=== PATIENT | female | born 1940 | race Caucasian/White ===

== ENCOUNTER → 2024-06-14 10:14 | Outpatient (REF) | payer OTHER, SELFPAY ==
[2024-06-14 12:25] LABS: % Basophils 0.6 % (0-2); % Eosinophils 1.3 % (0-6); % Immature Granulocytes 0.3 % (0-0.5); % Lymphocytes 13.6 % (20.5-51.1); % Neutrophils 79.2 % (42.2-75.2); Absolute Eosinophils 0.1 10^3/uL (0-0.7); Absolute Lymphocytes 0.9 10^3/uL (1.2-3.4); Absolute Monocytes 0.3 10^3/uL (0.1-0.6); Absolute Neutrophils 5.4 10^3/uL (1.4-6.5); Hematocrit 38.4 % (37.0-47.0); Hemoglobin 12.4 g/dL (12.0-16.0); Mean Corp Hgb Conc. 32.3 g/dL (33.0-37.0); Mean Corpuscular Hgb 28.6 pg (27.0-31.0); Mean Corpuscular Volume 88.5 fL (81.0-99.0); Mean Platelet Volume 9.7 fL (7.4-10.4); Nucleated Red Blood Cells % 0 %; Platelet Count 297 10^3/uL (130-400); Red Blood Cell Count 4.34 10^6/uL (4.20-5.40); Red Cell Dist. Width 12.9 % (11.5-14.5); White Blood Cell Count 6.8 10^3/uL (4.8-10.8)
[2024-06-14 12:26] LABS: Urine Albumin Trace (Neg - Trace); Urine Bilirubin Negative (Negative); Urine Character Clear (Clear); Urine Color Yellow; Urine Glucose Negative (Negative); Urine Ketone Negative (Negative); Urine Leukocyte Trace (Negative); Urine Nitrite Negative (Negative); Urine Occult Blood 1+ (Negative); Urine Specific Gravity 1.015 (<1.030); Urine Urobilinogen Negative (Neg - 1+)
[2024-06-14 12:35] LABS: Urine Bacteria Few (Negative); Urine Squamous Cell 0-2 /LPF (Few); Urine White Cell 0-2 /HPF (0-5)
[2024-06-14 12:37] LABS: ALT (SGPT) 13 U/L (0-35); AST (SGOT) 20 U/L (14-36); Albumin 4.2 g/dl (3.5-5.0); Alkaline Phosphatase 83 U/L (38-126); Blood Urea Nitrogen 18 mg/dl (7-17); Carbon Dioxide 26 mmol/L (22-30); Chloride 104 mmol/L (98-107); Glucose 92 mg/dl (70-99); HDL Cholesterol 69 mg/dl; LDL Cholesterol, Calculated 73 mg/dl; Potassium 4.5 mmol/L (3.5-5.1); Sodium 142 mmol/L (135-145); Total Bilirubin 0.4 mg/dl (0.2-1.3); Total Cholesterol 167 mg/dl (50-199); Total Protein 6.5 g/dl (6.3-8.2); Triglyceride 125 mg/dl (10-149); Very Low Density Lipoprotein 25 mg/dl (0-30); eGFR > 60.00
[2024-06-14 12:53] LABS: Free T4 1.32 ng/dl (0.78-2.19); Vitamin D, 25-OH*** 81.7 ng/mL (30-80)
[2024-06-14 13:06] LABS: TSH 2.02 uIU/ml (0.47-4.68)
== END ==
LOC: HWLAB 10:14
PROVIDERS: ATTENDING PHYSICIAN Internal Medicine Geriatric Medicine
DX: Z87.19 Personal history of other diseases of the digestive system (principal); E55.9 Vitamin D deficiency, unspecified; E03.9 Hypothyroidism, unspecified; E78.5 Hyperlipidemia, unspecified
CPT/HCPCS: 36415; 80053; 80061; 81003; 81015; 82306; 84439; 84443; 85025

== ENCOUNTER → 2024-06-21 10:59 | Outpatient (REF) | payer OTHER, SELFPAY | LOC: HWRAD 10:59 | PROVIDERS: ATTENDING PHYSICIAN Nurse Practitioner Family; FAMILY PHYSICIAN Internal Medicine Geriatric Medicine | DX: M94.0 Chondrocostal junction syndrome [Tietze] (principal) | CPT/HCPCS: 71101 ==

== ENCOUNTER 2024-06-23 11:29 | Emergency (ER) | payer OTHER, SELFPAY ==
[2024-06-23 11:31] VITALS: BP 160/91
--- NOTE | 2024-06-23 13:02 | ED.GENMED ---
Addendum entered and electronically signed by MARY Irby 06/26/24 08:32:
Urine culture positive for E. coli. Spoke with patient at home will send prescription to pharmacy as discussed. She does request that this prescription be sent to [facility] and should bottom [facility] as she is away this weekend. Will send
Keflex 500 mg twice daily for the next 1 week. She denies any f/c/n/v/abd pain. Dr Huddleston her pcp is following patient for her previous ED visit back pain.
Original Note:
History of Present Illness
General
Chief Complaint: Chest Problem
Source: patient and family
Time Seen by Provider: 06/23/24 12:17
History of Present Illness
History of Present Illness:
This is an 84-year-old female who presents with about 10 to 14 days of pain in the right flank area. She states it starts in her right flank and radiates down the right abdomen. The patient does admit it is worse with movement. She apparently had
outpatient x-rays performed. She does not recall any specific injury but does admit that there was a day when her dog chased after a squirrel and sort of pulled her. She denies dysuria. No hematuria. No vomiting. No nausea. No lightheadedness
or dizziness. She is being followed by dermatology for more diffuse rash but denies any local rash to the pain area
Past History
Past History
ED Past Medical History: Hypercholesterolemia, Hypothyroidism and Other (Diverticulosis/diverticulitis, melanoma)
ED Past Surgical History: Other (hemorrhoidectomy)
Social History
Tobacco: Non-smoker
Alcohol: Occasional
Drug: None
Personal:
Living: with family
Phy Exam
Physical Exam
Physical Exam:
CONSTITUTIONAL Patient alert and oriented to person, place and time. Well-appearing. Vital signs reviewed.
HEAD atraumatic, normocephalic.
EYES eyelids normal to inspection, Pupils equally round and reactive to light, Extraocular muscles intact, Conjunctiva normal, Sclera normal.
NECK normal range of motion, Trachea midline, no jugular venous distention.
RESPIRATORY CHEST No respiratory distress noted, Chest expansion equal, Bilateral breath sounds clear.
CARDIOVASCULAR regular rate and rhythm, Heart sounds normal.
ABDOMEN abdomen nontender, Bowel sounds normal. No distention.
BACK normal inspection, no obvious deformities, no crepitus, no CVA tenderness, mild tenderness along the lateral rib margins at ribs 10-12.
UPPER EXTREMITY range of motion normal, Motor strength normal, no cyanosis, no edema.
LOWER EXTREMITY range of motion normal, Motor strength normal, no cyanosis, no edema.
NEURO Speech normal, No focal motor deficits, Gregory coma scale 15, Memory normal, Cranial Nerves intact to screening exam.
SKIN skin warm, dry, and normal in color.
Course
Orders/Labs/Results
Orders:
Orders
06/23/24 12:53
CT Abd/pel Without Iv Or Oral Urgent
Comment:
Reason For Exam: R flank pain
06/23/24 13:09
Complete Blood Count/With Diff Urgent
Comprehensive Metabolic Panel Urgent
Urinalysis Reflex To Culture Urgent
Date Specimen was Collected: 06/23/24
Time Specimen was Collected: 13:02
Urine Microscopic Reflex Cult Urgent
Urine Culture Urgent
FORREST Source: U
Specimen Description:
Date Specimen was Collected: 06/23/24
Time Specimen was Collected: 13:02
Abnormal Lab Results
06/23/24
13:09
Absolute Neuts (auto) 8.3 H 10^3/uL
(1.4-6.5)
Neutrophils % 80.9 H %
(42.2-75.2)
Lymphocytes % 12.2 L %
(20.5-51.1)
BUN 35 H mg/dl
(7-17)
Creatinine 1.6 H mg/dL
(0.6-1.0)
Calcium 10.6 H mg/dl
(8.4-10.2)
Ur Occult Blood Reflex Trace A
(Negative)
Leukocyte Esterase Rfl Trace A
(Negative)
Urine RBC 7-10 A /HPF
(0-2)
Urine Bacteria (Reflex) Many A
(Negative)
06/23/24 13:09
06/23/24 13:09
Vital Signs
Initial and Last Documented VS:
Initial Vital Signs
Temp Pulse Resp BP Pulse Ox
98.7 F 91 18 160/91 98
06/23/24 11:31 06/23/24 11:31 06/23/24 11:31 06/23/24 11:31 06/23/24 11:31
Last Documented Vital Signs
Temp Pulse Resp BP Pulse Ox
98.7 F 91 18 160/91 98
06/23/24 11:31 06/23/24 11:31 06/23/24 11:31 06/23/24 11:31 06/23/24 11:31
MDM/Problems Addressed
MDM/Problems Addressed:
Flank pain, possible multiple myeloma, possible small bowel diverticulum
*Radiology
Radiology exam reviewed: radiology read reviewed
*Pulse Oximetry
Patient hypoxic: no
*Critical Care Note
Total Time (30-74mins, 75-104mins- exclusive of procedures): Not Applicable
Data Reviewed
Review of Other/Old Records Reveals: Radiology Studies (Radiology report reviewed from June 21, no rib fractures)
Source: patient and family
Patient Management
Discussion with other providers: PCP (Case discussed with Dr. Kirby)
Escalation/DeEscalation of care consider admission/obs:
84-year-old female presents with persistent flank pain. She appears well and the pain is clearly worse with moving. CT noted for some lytic lesions that are concerning for either metastatic disease or multiple myeloma. Case discussed with the
patient's PCP who will follow closely as an outpatient. The patient appears otherwise well. Creatinine noted. PCP aware of results
ED Attending Note
-
Portions of this chart may have been created with voice recognition software.� Occasional wrong word or��sound alike� substitutions may have occurred due to the inherent limitations of voice recognition software.
Discharge Plan
Departure
Patient Disposition: Home (Routine Discharge)
Date of Disposition: 06/23/24
Time of Disposition: 15:03
Patient with high blood pressure during this ER visit?: Yes
Discharge Problem:
Acute right flank pain
Instructions: BLOOD PRESSURE
Prescriptions:
No Action
simvastatin 10 MG tablet
10 mg PO QPM
levothyroxine 100 MCG tablet
100 mcg PO DAILY
cholecalciferol (vitamin D3) [Vitamin D3] 1,000 UNIT capsule
2,000 unit PO DAILY
conjugated estrogens [Premarin] 0.3 MG tablet
0.3 mg PO DAILY
pantoprazole 40 MG tablet,delayed release (DR/EC)
40 mg PO DAILY Qty: 30 0RF
aspirin 81 MG tablet,delayed release (DR/EC)
81 mg PO QPM Qty: 0 0RF
Rx Instructions:
restart after talking to pcp
Referrals:
Lawrence Huddleston MD [Family Provider] -
Activity Restrictions/Additional Instructions:
Flank pain
Dr. Huddleston will be calling you to arrange further follow-up. Return immediately for difficulty breathing, worsening symptoms, weakness or any other concerns. Dr. Huddleston will arrange further workup regarding your test results.
Interventions
Interventions:
*Risk Screen - Suicide Last Done: 06/23/24 13:07
*General Assessment Last Done: 06/23/24 13:07
*Neglect/Abuse Screening Last Done: 06/23/24 13:07
*ED COVID-19 Vaccine History Last Done: 06/23/24 13:07
ED- Cardiac Assessment Last Done: 06/23/24 13:07
ED- Pulmonary Assessment Last Done: 06/23/24 13:07
Discharge Date and Time
Print Language: PORTUGUESE
[2024-06-23 13:22] LABS: % Basophils 0.7 % (0-2); % Eosinophils 0.9 % (0-6); % Immature Granulocytes 0.2 % (0-0.5); % Lymphocytes 12.2 % (20.5-51.1); % Monocytes 5.1 % (1.7-9.3); % Neutrophils 80.9 % (42.2-75.2); Absolute Basophils 0.1 10^3/uL (0-0.2); Absolute Eosinophils 0.1 10^3/uL (0-0.7); Absolute Lymphocytes 1.3 10^3/uL (1.2-3.4); Absolute Monocytes 0.5 10^3/uL (0.1-0.6); Absolute Neutrophils 8.3 10^3/uL (1.4-6.5); Hematocrit 39.2 % (37.0-47.0); Mean Corp Hgb Conc. 33.2 g/dL (33.0-37.0); Mean Corpuscular Hgb 28.8 pg (27.0-31.0); Mean Corpuscular Volume 86.7 fL (81.0-99.0); Nucleated Red Blood Cells % 0 %; Platelet Count 308 10^3/uL (130-400); Red Blood Cell Count 4.52 10^6/uL (4.20-5.40); Red Cell Dist. Width 13.1 % (11.5-14.5); White Blood Cell Count 10.3 10^3/uL (4.8-10.8)
[2024-06-23 13:45] LABS: ALT (SGPT) 21 U/L (0-35); AST (SGOT) 28 U/L (14-36); Albumin 4.7 g/dl (3.5-5.0); Alkaline Phosphatase 75 U/L (38-126); Blood Urea Nitrogen 35 mg/dl (7-17); Calcium 10.6 mg/dl (8.4-10.2); Carbon Dioxide 26 mmol/L (22-30); Chloride 103 mmol/L (98-107); Glucose 93 mg/dl (70-99); Potassium 4.5 mmol/L (3.5-5.1); Sodium 141 mmol/L (135-145); Total Bilirubin 0.8 mg/dl (0.2-1.3); Total Protein 7.1 g/dl (6.3-8.2); eGFR 31.61
[2024-06-23 14:09] LABS: Urine Albumin Trace (Neg - Trace); Urine Bilirubin Negative (Negative); Urine Character Slightly Cloudy (Clear); Urine Color Yellow; Urine Glucose Negative (Negative); Urine Ketone Negative (Negative); Urine Leukocyte Trace (Negative); Urine Nitrite Negative (Negative); Urine Occult Blood Trace (Negative); Urine Specific Gravity 1.015 (<1.030); Urine Urobilinogen Negative (Neg - 1+)
[2024-06-23 14:39] LABS: Urine Mucus Moderate
[2024-06-23 14:40] LABS: Urine Amorphous Seen
[2024-06-23 14:42] LABS: Urine Bacteria Many (Negative); Urine White Cell 0-2 /HPF (0-5)
== END 2024-06-23 15:33 | disposition home or self-care (01) ==
LOC: EMR 11:29
PROVIDERS: EMERGENCY PHYSICIAN Emergency Medicine; FAMILY PHYSICIAN Internal Medicine Geriatric Medicine
DX: R10.9 Unspecified abdominal pain (principal); R21 Rash and other nonspecific skin eruption; R03.0 Elevated blood-pressure reading, without diagnosis of hypertension; R93.5 Abnormal findings on diagnostic imaging of other abdominal regions, including retroperitoneum; E03.9 Hypothyroidism, unspecified; E78.00 Pure hypercholesterolemia, unspecified; K57.50 Diverticulosis of both small and large intestine without perforation or abscess without bleeding; Z79.82 Long term (current) use of aspirin; Z85.820 Personal history of malignant melanoma of skin
CPT/HCPCS: 99284; 74176; 80053; 81003; 81015; 85025; 87077; 87086; 87186

== ENCOUNTER → 2024-06-30 12:35 | Outpatient (REF) | payer OTHER, SELFPAY ==
[2024-06-30 13:39] LABS: % Basophils 0.4 % (0-2); % Eosinophils 1.4 % (0-6); % Immature Granulocytes 0.4 % (0-0.5); % Lymphocytes 7.3 % (20.5-51.1); % Monocytes 4.4 % (1.7-9.3); % Neutrophils 86.1 % (42.2-75.2); Absolute Eosinophils 0.1 10^3/uL (0-0.7); Absolute Lymphocytes 0.6 10^3/uL (1.2-3.4); Absolute Monocytes 0.4 10^3/uL (0.1-0.6); Hematocrit 40.5 % (37.0-47.0); Hemoglobin 13.1 g/dL (12.0-16.0); Mean Corp Hgb Conc. 32.3 g/dL (33.0-37.0); Mean Corpuscular Hgb 28.4 pg (27.0-31.0); Mean Corpuscular Volume 87.9 fL (81.0-99.0); Mean Platelet Volume 9.5 fL (7.4-10.4); Nucleated Red Blood Cells % 0 %; Platelet Count 406 10^3/uL (130-400); Red Blood Cell Count 4.61 10^6/uL (4.20-5.40); Red Cell Dist. Width 13.3 % (11.5-14.5); White Blood Cell Count 8.1 10^3/uL (4.8-10.8)
[2024-06-30 14:09] LABS: Erythrocyte Sed Rate 25 mm/hour (0-20)
[2024-06-30 14:17] LABS: ALT (SGPT) 20 U/L (0-35); AST (SGOT) 24 U/L (14-36); Albumin 4.8 g/dl (3.5-5.0); Alkaline Phosphatase 84 U/L (38-126); Blood Urea Nitrogen 50 mg/dl (7-17); Carbon Dioxide 26 mmol/L (22-30); Chloride 101 mmol/L (98-107); Glucose 103 mg/dl (70-99); Potassium 5.6 mmol/L (3.5-5.1); Sodium 143 mmol/L (135-145); Total Bilirubin 0.5 mg/dl (0.2-1.3); Total Protein 7.2 g/dl (6.3-8.2); eGFR 11.56
[2024-07-01 04:26] LABS: IgG 628 mg/dl (700-1600); IgM 41 mg/dl (40-230)
[2024-07-01 04:50] LABS: IgA < 50 mg/dl (70-400)
== END ==
LOC: REG 12:35
PROVIDERS: ATTENDING PHYSICIAN Internal Medicine Geriatric Medicine
DX: E78.2 Mixed hyperlipidemia (principal); E55.9 Vitamin D deficiency, unspecified; E03.8 Other specified hypothyroidism; M94.0 Chondrocostal junction syndrome [Tietze]; R10.32 Left lower quadrant pain; Z13.31 Encounter for screening for depression; R07.9 Chest pain, unspecified; R07.89 Other chest pain; Z13.89 Encounter for screening for other disorder; E03.9 Hypothyroidism, unspecified; C79.51 Secondary malignant neoplasm of bone
CPT/HCPCS: 36415; 80053; 82784; 83521; 84155; 84156; 84165; 85025; 85652; 86335

== ENCOUNTER 2024-07-01 16:37 | Inpatient (IN) | payer OTHER, SELFPAY ==
[2024-07-01] VITALS (13 sets, daily range): BP systolic 127–163; BP diastolic 67–127; BMI 18.6; BMI 19.3
[2024-07-01 10:48] LABS: % Basophils 0.3 % (0-2); % Eosinophils 1.3 % (0-6); % Immature Granulocytes 0.3 % (0-0.5); % Lymphocytes 6.1 % (20.5-51.1); % Monocytes 5.7 % (1.7-9.3); % Neutrophils 86.3 % (42.2-75.2); Absolute Eosinophils 0.1 10^3/uL (0-0.7); Absolute Lymphocytes 0.6 10^3/uL (1.2-3.4); Absolute Monocytes 0.5 10^3/uL (0.1-0.6); Absolute Neutrophils 7.7 10^3/uL (1.4-6.5); Hematocrit 37.7 % (37.0-47.0); Hemoglobin 12.4 g/dL (12.0-16.0); Mean Corp Hgb Conc. 32.9 g/dL (33.0-37.0); Mean Corpuscular Hgb 29.6 pg (27.0-31.0); Nucleated Red Blood Cells % 0 %; Platelet Count 349 10^3/uL (130-400); Red Blood Cell Count 4.19 10^6/uL (4.20-5.40); Red Cell Dist. Width 13.2 % (11.5-14.5)
[2024-07-01 11:02] LABS: ALT (SGPT) 19 U/L (0-35); AST (SGOT) 21 U/L (14-36); Albumin 4.6 g/dl (3.5-5.0); Alkaline Phosphatase 75 U/L (38-126); Blood Urea Nitrogen 48 mg/dl (7-17); Calcium 10.8 mg/dl (8.4-10.2); Carbon Dioxide 25 mmol/L (22-30); Chloride 103 mmol/L (98-107); Glucose 103 mg/dl (70-99); Potassium 5.1 mmol/L (3.5-5.1); Sodium 144 mmol/L (135-145); Total Bilirubin 0.5 mg/dl (0.2-1.3); Total Protein 6.8 g/dl (6.3-8.2); eGFR 12.79
[2024-07-01] MEDS: NSS 500 IV (12:17)
[2024-07-01] MEDS: MORPHINE SULFATE 4 MG IV (12:18)
--- NOTE | 2024-07-01 12:41 | ED.GENMED ---
History of Present Illness
General
Chief Complaint: Abnormal Lab Value
Source: patient and family
Exam Limitations: none
Time Seen by Provider: 07/01/24 11:29
Nursing documentation reviewed up to this point in time: agreed with
History of Present Illness
History of Present Illness:
84-year-old female with past medical history of recently diagnosed multiple myeloma previous history of hyperlipidemia hypothyroidism presenting to the department today with concerns of abnormal labs obtained yesterday. She claims that she has had
ongoing which she has had over the past few weeks to the upper abdomen rating to the back. She is pending assessment by oncology for multiple myeloma treatment.
Past History
Past History
ED Past Medical History: Hypercholesterolemia, Hypothyroidism and Other (Diverticulosis/diverticulitis, melanoma)
ED Past Surgical History: Other (hemorrhoidectomy)
Social History
Tobacco: Non-smoker
Alcohol: Occasional
Drug: None
Personal:
Living: with family
Review of Systems
Review of Systems
Allergies reviewed?: Yes
All Other Systems: ROS reviewed and negative except as documented in HPI and ROS
Phy Exam
Physical Exam
Physical Exam:
GENERAL: Alert , in no apparent distress
EYE: pupils equal and reactive
NECK: Supple, no significant adenopathy.
ENT: o/p clr, mmm.
CARDIAC: Regular rate and rhythm .
LUNGS: Clear breath sounds bilaterally, no acute respiratory distress, no wheezes/rales/rhonchi
ABDOMEN: Discomfort throughout the upper abdomen in the right upper quadrant as well as right flank area otherwise soft benign abdomen
NEUROLOGICAL: Alert and oriented, no focal neuro deficits
SKIN: Warm and dry, skin intact.
MUSCULOSKELETAL: No edema, well perfused.
PSYCH: Normal and appropriate interaction.
Course
Orders/Labs/Results
Orders:
Orders
07/01/24 10:35
CMP [Comprehensive Metabolic Panel] Urgent
Complete Blood Count/With Diff Urgent
07/01/24 12:12
Morphine Sulfate 4 mg IV NOW STA
07/01/24 12:15
0.9% Sodium Chloride 500 ml [Nss] 500 ml IV BOLUS
07/01/24 14:42
Urinalysis Urgent
0.9% Sodium Chloride 1000 ml [Nss] 1,000 ml IV BOLUS
07/01/24 14:46
Bladder Scan As Directed
Follow Bladder Retention/Intermittent Cath Algorithm?: Yes
PRN if no void in __ hours: 6
Frequency: Per Retention Algorithm
If Bladder Scan Result >: 400
then:: Straight cath
Straight Cath As Directed
Frequency: Per Retention Algorithm
Additional Instructions: straight cath as needed per acute urinary retention algorithm for 24 hrs
Additional Instructions: for bladder scan greater than 400 mL
07/01/24 14:47
Intact PTH Includes Calcium Routine
PTH Related Peptide LC-MS/MS [S] Routine
Phosphorus Routine
07/01/24 14:48
Add On- LAB Routine
Tests Added?: 1,25 Dihydroxyvitamin D
07/01/24 15:00
0.9% Sodium Chloride 1000 ml [Nss] 1,000 ml IV 150 mls/hr
Abnormal Lab Results
07/01/24
10:35
RBC 4.19 L 10^6/uL
(4.20-5.40)
MCHC 32.9 L g/dL
(33.0-37.0)
Absolute Neuts (auto) 7.7 H 10^3/uL
(1.4-6.5)
Absolute Lymphs (auto) 0.6 L 10^3/uL
(1.2-3.4)
Neutrophils % 86.3 H %
(42.2-75.2)
Lymphocytes % 6.1 L %
(20.5-51.1)
BUN 48 H mg/dl
(7-17)
Creatinine 3.4 H mg/dL
(0.6-1.0)
Glucose 103 H mg/dl
(70-99)
Calcium 10.8 H mg/dl
(8.4-10.2)
07/01/24 10:35
07/01/24 10:35
Vital Signs
Initial and Last Documented VS:
Initial Vital Signs
Temp Pulse Resp BP Pulse Ox
98.2 F 82 16 161/93 97
07/01/24 10:23 07/01/24 10:23 07/01/24 10:23 07/01/24 10:23 07/01/24 10:23
Last Documented Vital Signs
Temp Pulse Resp BP Pulse Ox
98.2 F 84 16 143/70 96
07/01/24 10:23 07/01/24 14:30 07/01/24 10:23 07/01/24 14:00 07/01/24 14:30
MDM/Problems Addressed
MDM/Problems Addressed:
84-year-old female presenting to the emergency department with concerns of abnormal labs as an outpatient. Found to have increased kidney function test. Has more than doubled over the past 2 weeks. Level here BUN of 48 and creatinine of 3.4.
Case was then discussed with oncology as well as nephrology. Patient otherwise given fluids here also additional pain medications. Stable throughout ER stay admitted for ongoing treatment.
*Critical Care Note
Total Time (30-74mins, 75-104mins- exclusive of procedures): Not Applicable
ED Attending Note
-
Portions of this chart may have been created with voice recognition software.� Occasional wrong word or��sound alike� substitutions may have occurred due to the inherent limitations of voice recognition software.
Discharge Plan
Departure
Patient Disposition: Admit
Date of Disposition: 07/01/24
Time of Disposition: 15:18
Admit to: Med/Surg
Admit to doctor: Sergio
Presentation/result/management discussed w/ accepting MD/DO: Hospitalist
Patient with high blood pressure during this ER visit?: No
Condition: Good
Covid-19: Not Applicable
Discharge Problem:
KATHRYN (acute kidney injury)
Prescriptions:
No Action
cholecalciferol (vitamin D3) [Vitamin D3] 1,000 UNIT capsule
2,000 unit PO DAILY
cephalexin 500 mg capsule
500 mg PO BID 7 Days Qty: 14 0RF
polyethylene glycol 3350 [Miralax] 17 gram Powder In Packet
17 g PO DAILYPRN PRN (Reason: CONSTIPATION)
tramadol 50 mg Tablet
50 mg PO BIDPRN PRN (Reason: moderate pains)
acetaminophen [Tylenol Extra Strength] 500 mg Tablet
500 mg PO QIDPRN PRN (Reason: mild pain)
oxycodone-acetaminophen 5-325 mg Tablet
1 tab PO Q6HPRN PRN (Reason: severe pain)
levothyroxine [Synthroid] 88 mcg Tablet
88 mcg PO DAILY
simvastatin [Zocor] 20 mg Tablet
20 mg PO HS
ondansetron [Zofran ODT] 4 mg Tablet,Disintegrating
4 mg PO Q6HPRN PRN (Reason: NAUSEA)
turmeric 400 mg Capsule
400 mg PO DAILY
Referrals:
Lawrence Huddleston MD [Family Provider] -
Interventions
Interventions:
*Risk Screen - Suicide Last Done: 07/01/24 10:23
*General Assessment Last Done: 07/01/24 11:39
*Neglect/Abuse Screening Last Done: 07/01/24 10:23
ED- Fall Risk Assessment Last Done: 07/01/24 11:39
*ED COVID-19 Vaccine History Last Done: 07/01/24 11:39
Discharge Date and Time
Print Language: BULGARIAN
--- NOTE | 2024-07-01 14:23 | W.CON.NEPH ---
Consultation
-
Date/Time Consultation Requested: 07/01/24 1200
Date/Time Consultation Performed: 07/01/24 1430
Requesting Provider: Dr. Hill
Performing Provider: Dr Herbert
Reason for Consultation: KATHRYN
Medical History
-
Chief Complaint: Right Abdominal Pain
History of Present Illness:
This is a 84-year-old female who has very limited medical history. She has hypothyroid on Synthroid therapy, hyperlipidemia on statin therapy, both of these have been stable. At the beginning of the month she had developed right-sided abdominal
pain which she associated with a sudden jerking motion while she was walking her dog. She saw her primary care physician on 06/18/2024 and was started on naproxen 500 mg 2 times daily. She says that she was taking naproxen 5 mg 3 times daily with
Tylenol 1000 mg 3 times daily as well. This unfortunately did not control her pain very well. She had a chest ray x-ray which was otherwise unremarkable. She went to the emergency room on 23 June given the severe pain. She had a CT scan which
showed significant lytic lesions in the femurs ribs and spine. Blood work at that time showed mildly elevated calcium at 10.6 with mildly elevated creatinine 1.6. She called her primary care physician on 06/25/2024 and was given tramadol for her
pain. She was told to discontinue naproxen subsequently. She had follow-up with her primary on 06/30/2024 and was given OxyContin given continued worsening pain. She also had blood work to evaluate for multiple myeloma. She returns to the
emergency room with worsening pain. She also reports significant constipation. Blood work shows elevated calcium to 10.8 but with acute kidney injury with creatinine of 3.4. We are asked to assist with management of the acute kidney injury.
Past Medical History
Hypothyroidism, hyperlipidemia
Hemorrhoidectomy, prolapsed bladder and bowel surgery, bilateral cataract surgery
Social History
Tobacco: Non-Smoker
Alcohol: None
Family History
Father multiple myeloma, mother uterine cancer, brother COPD, granddaughter ovarian cancer
Allergies / Home Medications
Allergy/AdvReac Type Severity Reaction Status Date / Time
No Known Allergies Allergy Verified 07/01/24 10:26
�Medication �Instructions �Recorded �Confirmed �Type
cholecalciferol (vitamin D3) 25 2,000 unit PO DAILY 06/13/16 07/01/24 History
mcg (1,000 unit) capsule (Vitamin
D3)
cephalexin 500 mg capsule 500 mg PO BID 7 days #14 caps 06/26/24 07/01/24 Rx
acetaminophen 500 mg tablet 500 mg PO QIDPRN PRN mild pain 07/01/24 07/01/24 History
(Tylenol Extra Strength)
levothyroxine 88 mcg tablet 88 mcg PO DAILY 07/01/24 07/01/24 History
(Synthroid)
ondansetron 4 mg disintegrating 4 mg PO Q6HPRN PRN NAUSEA 07/01/24 07/01/24 History
tablet
oxycodone-acetaminophen 5 mg-325 1 tab PO Q6HPRN PRN severe pain 07/01/24 07/01/24 History
mg tablet
polyethylene glycol 3350 17 gram 17 g PO DAILYPRN PRN CONSTIPATION 07/01/24 07/01/24 History
oral powder packet (Miralax)
simvastatin 20 mg tablet (Zocor) 20 mg PO HS 07/01/24 07/01/24 History
tramadol 50 mg tablet 50 mg PO BIDPRN PRN moderate pains 07/01/24 07/01/24 History
turmeric 400 mg capsule 400 mg PO DAILY 07/01/24 07/01/24 History
Review of Systems
-
Right-sided abdominal pain, lateral right pain, constipation, nausea, decreased appetite
No issues with drinking, urination
Physical Exam
Vital Signs
Vital Signs
Temp Pulse Resp BP Pulse Ox
98.2 F 74 16 157/74 96
07/01/24 10:23 07/01/24 13:30 07/01/24 10:23 07/01/24 13:00 07/01/24 13:30
Lab Results
WBC 9.0 10^3/uL (4.8-10.8) 07/01/24 10:35
RBC 4.19 10^6/uL (4.20-5.40) L 07/01/24 10:35
Hgb 12.4 g/dL (12.0-16.0) 07/01/24 10:35
Hct 37.7 % (37.0-47.0) 07/01/24 10:35
Plt Count 349 10^3/uL (130-400) 07/01/24 10:35
Sodium 144 mmol/L (135-145) 07/01/24 10:35
Potassium 5.1 mmol/L (3.5-5.1) 07/01/24 10:35
Chloride 103 mmol/L (98-107) 07/01/24 10:35
Carbon Dioxide 25 mmol/L (22-30) 07/01/24 10:35
BUN 48 mg/dl (7-17) H 07/01/24 10:35
Creatinine 3.4 mg/dL (0.6-1.0) H 07/01/24 10:35
eGFR 12.79 07/01/24 10:35
Glucose 103 mg/dl (70-99) H 07/01/24 10:35
Calcium 10.8 mg/dl (8.4-10.2) H 07/01/24 10:35
Albumin 4.6 g/dl (3.5-5.0) 07/01/24 10:35
Laboratory Tests
06/14/24 06/23/24 06/30/24
10:32 13:09 13:08
Creatinine 0.9 1.6 H 3.7 H
Calcium 10.0 10.6 H 11.0 H
Total Protein 7.2
Albumin 4.8
Vitamin D 25-Hydroxy 81.7 H
Urine Clarity Slightly cloudy
Ur Specific [place] 1.015
Ur Occult Blood Reflex Trace A
Granular Casts 3-5
Urine Albumin (Reflex) Trace
Physical Exam
Patient is awake alert oriented and in no distress. Mood and affect were pleasant, insight and judgment were good. Pupils are equal round and reactive to light, extraocular movements are intact, sclera were anicteric. Hearing was normal, ears and
nose are intact. Oropharynx was clear. Neck was supple with trachea midline and no thyromegaly. Heart was regular rate and rhythm without rubs. Lower extremities without edema. Lungs were clear to auscultation bilaterally and with normal
excursion. Abdomen was soft, tender to palpation in the right upper quadrant, with normal active bowel sounds, and no hepatosplenomegaly. Skin was without rash and with normal turgor.
Data Reviewed
-
CT Scan: Report Reviewed by me (CT scan on 07/01/2024 without IV contrast shows significant lytic lesions in the femur of the ribs and spine, also large duodenal diverticulum 6.5 cm)
Medical Tests (Nuc Med, Echo etc): Image Personally Visualized and interpreted (Chest x-ray on 06/21/2024 by my reading shows no acute disease)
Labs: Labs Reviewed by me
Old Records: Reviewed
Assessment/Plan
-
Assessment
Right-sided abdominal pain
Multiple bony lytic lesions
Large duodenal diverticulum
Acute kidney injury
Constipation
Hypercalcemia
Plan
Volume resuscitation with saline
Follow BMP
Check postvoid residual
GI or surgical evaluation given duodenal diverticulum as well as corresponding abdominal pain
Oncology evaluation
I did discuss with the patient as well as her son regarding her acute kidney injury as well as the possibility of dialysis if her creatinine continues to worsen. However, I suspect that the KATHRYN is related more to NSAID usage at high doses coupled
with poor oral intake.
Remainder of the hypercalcemia workup has been ordered
[2024-07-01] MEDS: NSS 1000 IV ×3 (15:27→22:06)
--- NOTE | 2024-07-01 15:27 | HPS.HSE ---
Family Physician
-
Family Physician: Lawrence Huddleston
Chief Complaint
-
Right side abdominal pain, constipation
History of Present Illness
84-year-old female complaining of right-sided abdominal pain/rib pain worsening since 06/18/2024 and constipation . She reportedly has bowel movements daily but has not had 1 in the past 5 days. She attempted 1 dose of MiraLAX last night with no
bowel movement. She did report taking Percocet last night 1 tablet for pain and states it helped her fall asleep with no side effects. She was reportedly seen by her PCP on 06/18/2024 started on naproxen 500 mg 3 times daily. She was taking this
along with Tylenol 1000 mg 3 times daily which did not help her pain. She reportedly came to the ER on 06/23/[address] scan showing significant lytic lesions in the femur, ribs and spine concerning for multiple myeloma along with mild
hypercalcemia calcium 10.6 and KATHRYN with creat 1.6. She had outpatient follow-up was placed on oxycodone/acetaminophen for pain. She also reports she was started on Keflex on 06/26/2024 due to urine culture growing E. coli, although patient is
asymptomatic no urinary symptoms or flank pain/fevers. Patient denies headache, sore throat,, chest pain, palpitations, shortness breath, cough, nausea, vomiting, diarrhea, urinary symptoms.
She has past medical history of hypothyroidism, HLD, vitamin D deficiency
Medical History
Past Medical History
Past Medical History: Reports Other
Additional Past Medical History:
hypothyroidism,
HLD
vitamin D deficiency
Past Surgical History: Reports Other
Additional Past Surgical History:
Prolapsed bladder/bowel surgery
Bilateral cataract extraction
Social History
Tobacco: Non-smoker
Alcohol: None
Drug: None
Personal: Single
Living: With Family
Employment: Retired
Family History
Family History: Not pertinent
Allergies / Home Medications
Allergies reflects when Allergies were last updated in [email or web address].
Home Medications with original date entered in [email or web address]
Allergy/Medication List:
Allergies
Allergy/AdvReac Type Severity Reaction Status Date / Time
No Known Allergies Allergy Verified 07/01/24 10:26
Home Medications
cholecalciferol (vitamin D3) 25 mcg (1,000 unit) capsule (Vitamin D3) 2,000 unit PO DAILY 06/13/16
cephalexin 500 mg capsule 500 mg PO BID 7 days #14 caps 06/26/24
acetaminophen 500 mg tablet (Tylenol Extra Strength) 500 mg PO QIDPRN PRN mild pain 07/01/24
levothyroxine 88 mcg tablet (Synthroid) 88 mcg PO DAILY 07/01/24
ondansetron 4 mg disintegrating tablet 4 mg PO Q6HPRN PRN NAUSEA 07/01/24
oxycodone-acetaminophen 5 mg-325 mg tablet 1 tab PO Q6HPRN PRN severe pain 07/01/24
polyethylene glycol 3350 17 gram oral powder packet (Miralax) 17 g PO DAILYPRN PRN CONSTIPATION 07/01/24
simvastatin 20 mg tablet (Zocor) 20 mg PO HS 07/01/24
tramadol 50 mg tablet 50 mg PO BIDPRN PRN moderate pains 07/01/24
turmeric 400 mg capsule 400 mg PO DAILY 07/01/24
Review of Systems
-
History Source: Patient and Family
A 12 point ROS was completed and negative except as noted: Yes
Constitutional: Denies Fever or Chills
EENT: Denies Sore Throat or Runny Nose
Respiratory: Reports Other (Right sided rib pain); Denies Cough or Trouble Breathing
Cardiac: Denies Chest Pain, Diaphoresis, Palpitations or Syncope
Abdomen/GI: Reports Abdominal Pain (Across lower abdomen) and Constipated (5 days); Denies Nausea, Vomiting, Diarrhea, Bloody Stools or Black Stools
: Denies Dysuria, Frequency, Flank Pain, Incontinence, Difficulty Voiding, Urgency, Bleeding or Dark Urine
Musculoskeletal: Denies Joint Pain or Edema
Skin: Denies Itching or Rash
Neurological: Denies Dizzy, Headache or Weakness
Endocrine: Reports No Symptoms
Hematologic/Lymphatic: Reports No Symptoms
Psych: Reports Calm
Physical Exam
Vital Signs
Vital Signs
Temp Pulse Resp BP Pulse Ox
98.2 F 84 16 143/70 96
07/01/24 10:23 07/01/24 14:30 07/01/24 10:23 07/01/24 14:00 07/01/24 14:30
Physical Exam
General: Pain (Right rib); No Fever or Chills
HEENT: NormoCephalic, Anicteric, Moist mucous membranes, PERRLA, [place] Conjunctivae and No Ptosis
Respiratory: Clear and Other (Right sided rib pain mid ribs along to border of 12th rib); No Wheezes, Rales or Rhonchi
Cardiac: S1/S2 and Regular Rhythm; No Murmur, Rub, Gallop or Peripheral Edema
Breast: Deferred by me
GI: Soft, Non Distended, Normal Bowel Sounds and Tender (Across lower abdomen)
Rectal: Deferred by Provider
Genito-urinary: Deferred by me
Musculoskeletal: No Clubbing, No Cyanosis and No Edema
Skin: Warm and Dry; No Rash
Neuro: AO x 3, No Motor Deficits, Nonfocal/grossly intact, Cranial Nerves Intact and No Sensory Deficits; No Slurred Speech, Facial Droop or Tremors
Psych: Calm
Laboratory Results
-
07/01/24 10:35
07/01/24 10:35
Laboratory Results
Total Bilirubin 0.5 mg/dl (0.2-1.3) 07/01/24 10:35
AST 21 U/L (14-36) 07/01/24 10:35
ALT 19 U/L (0-35) 07/01/24 10:35
Alkaline Phosphatase 75 U/L (38-126) 07/01/24 10:35
Impression/Plan
-
Impression/plan:
Admit to telemetry
#Right sided abdominal pain likely secondary to lytic lesions ribs
-Continue oxycodone/acetaminophen 1 tab every 6 as needed mild pain, IV Dilaudid as needed severe pain
#KATHRYN
Creat 3.4
IV NSS given 2 L in ER continue IV NSS 150 cc/h
-Consult nephrology
-Hold NSAID patient was recently taking naproxen 500 mg 3 times daily
-Follow BMP
-Follow postvoid residuals
#Reported constipation
-Check flatplate abdomen
-MiraLAX 17 g daily, senna twice daily
-Follow bowel movements
#Mild hypercalcemia likely secondary to multiple bony lytic lesions
Ca 10.8
-Follow Phos, PTH
#Abdominal pain with duodenal diverticulum
-Consult GI
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 Lytic lesions visualized within the ribs, spine, innominate bones such as 1 cm lesion
within the left iliac bone, proximal femurs concern for multiple myeloma.
#Multiple myeloma-new Dx as of 06/23/2024
-Consul oncology
#Recent E. coli UTI
-Urine culture grew E. coli on 06/23/2024 patient was asymptomatic at that time
-Is on Keflex started on 06/26/2024 will hold further doses as patient is asymptomatic
#Hypothyroidism
-Continue levothyroxine 88 mcg p.o. daily
#HLD
Continue Zocor 20 mg at bedtime
DVT prophylaxis
Subcu Heparin bid
Full code
[2024-07-01] MEDS: DILAUDID 1 MG IV ×2 (15:45→18:44)
--- NOTE | 2024-07-01 15:49 | W.PN.UPDATE ---
Update Note
Progress Note Update
This is an addendum to the H&P written by Jadyn Maldonado on 07/01/2024.� Patient seen and examined independently with BULB TESTER.
84-year-old female past medical history of multiple myeloma diagnosed 2 weeks ago, hyperlipidemia, hypothyroidism presenting with right sided abdominal pain and abnormal labs.
Patient hemodynamically stable.� Labs show KATHRYN with creatinine 3.4 from 0.9 in May.� Hypercalcemia with calcium of 10.8.� CT abdomen pelvis from 06/23 shows giant duodenal diverticulum 6.5 cm x 5.6 cm x 4.5 cm enlarged from previously.� There
are lytic lesions involving the anterior cortex of both proximal femurs, ribs, spine, innominate bones, left iliac bone.
Patient with KATHRYN and hypercalcemia secondary to newly diagnosed multiple myeloma not yet on treatment likely exacerbated by recent NSAID use.� IV fluids with normal saline for hypercalcemia.� PTH, PTH related peptide pending.� Phosphorus level
pending.� Bladder scan protocol.� Nephrology following.
Patient appears to have right rib pain with some radiation to her lower abdomen.� Doubt that duodenal diverticulum is responsible for her pain.� Check flatplate abdomen.� Lidocaine patch, as needed oral oxycodone for pain, Dilaudid for severe pain.
Oncology consulted.�
GI consult for duodenal diverticulum.� MiraLAX and senna for constipation.
Patient on Keflex started on 06/26 for positive urinalysis although no symptoms of UTI or pyelonephritis.� Can stop further Keflex.
[2024-07-01 15:51] LABS: Urine Albumin Trace (Neg - Trace); Urine Bilirubin Negative (Negative); Urine Character Clear (Clear); Urine Color Yellow; Urine Glucose Negative (Negative); Urine Ketone Negative (Negative); Urine Leukocyte Negative (Negative); Urine Nitrite Negative (Negative); Urine Occult Blood 1+ (Negative); Urine Urobilinogen Negative (Neg - 1+)
[2024-07-01 16:03] LABS: Calcium 10.4 mg/dl (8.4-10.2); Phosphorus 4.3 mg/dl (2.5-4.5)
[2024-07-01 16:12] LABS: Urine Bacteria Few (Negative); Urine Red Blood Cell 0-2 /HPF (0-2); Urine Squamous Cell 0-2 /LPF (Few)
[2024-07-01] MEDS: ZOFRAN 4 MG IV ×2 (16:50→22:51)
[2024-07-01] MEDS: HEPARIN 5000 UNITS SC (22:06)
[2024-07-01] MEDS: SENOKOT-S 1 TABLET PO (22:06)
[2024-07-01] MEDS: LIPITOR 10 MG PO (22:06)
[2024-07-02 03:54] VITALS: BP 123/63
[2024-07-02] MEDS: NSS 1000 IV ×3 (04:40→21:34)
[2024-07-02] MEDS: SYNTHROID 88 MCG PO (06:18)
[2024-07-02] MEDS: DILAUDID 1 MG IV (06:24)
[2024-07-02 07:25] LABS: % Basophils 0.3 % (0-2); % Eosinophils 2.7 % (0-6); % Immature Granulocytes 1.6 % (0-0.5); % Lymphocytes 7.2 % (20.5-51.1); % Monocytes 6.9 % (1.7-9.3); % Neutrophils 81.3 % (42.2-75.2); Absolute Eosinophils 0.2 10^3/uL (0-0.7); Absolute Immature Granulocytes 0.1 10^3/uL (0-0.05); Absolute Lymphocytes 0.5 10^3/uL (1.2-3.4); Absolute Monocytes 0.4 10^3/uL (0.1-0.6); Absolute Neutrophils 5.2 10^3/uL (1.4-6.5); Hematocrit 30.8 % (37.0-47.0); Hemoglobin 10.1 g/dL (12.0-16.0); Mean Corp Hgb Conc. 32.8 g/dL (33.0-37.0); Mean Corpuscular Hgb 29.7 pg (27.0-31.0); Mean Corpuscular Volume 90.6 fL (81.0-99.0); Mean Platelet Volume 9.3 fL (7.4-10.4); Nucleated Red Blood Cells % 0 %; Platelet Count 295 10^3/uL (130-400); Red Cell Dist. Width 13.2 % (11.5-14.5); White Blood Cell Count 6.4 10^3/uL (4.8-10.8)
--- NOTE | 2024-07-02 07:32 | CON.GI ---
Addendum entered and electronically signed by Marlene Castro MD 07/02/24 15:48:
I saw and examined the patient.
The POTATO SORTER or PA's note was reviewed and I agree with the note.
Comment:
This patient is an 84-year-old woman with history of lytic bone lesions concerning for multiple myeloma, diverticulosis, UTI and a history of a small bowel diverticulum. She was admitted with right sided pain over her ribs. A CAT scan that I
personally viewed does show a large duodenal diverticulum. The diverticulum is large but does not appear to contain any food or debris. Incidentally the CAT scan does show a large amount of stool in the colon and patient has not had a bowel
movement. Of note she does have an increased calcium level
abd: soft nontender, right lower ribs tender
impression:
right rib pain
constipation
duodenal diverticulum
plan:
1. She does need a bowel regimen as constipation is more likely a cause of her issue than her duodenal diverticulum. She did receive a suppository with one small bm. will put in regimen and enema prn
2. 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 I would not investigate that further.
3. She does have ongoing questions with multiple myeloma and lytic bone lesions. Her pain is over her ribs and likely due to non-GI sources.
Will sign off call with questions
Original Note:
Consultation
-
Date/Time Consultation Requested: 07/01/24 1600
Date/Time Consultation Performed: 07/02/24 0915
Requesting Provider: MARY Ribeiro
Performing Provider: MARY Vega, Marlene Castro MD
Reason for Consultation: abdominal pain
Medical History
Chief Complaint / HPI
Chief Complaint: abdominal/rib pain
History of Present Illness:
Pt is a 84yo with hx hypothyroidism, hyperlipidemia, prolapsed bladder, diverticulosis prior diverticulitis with onset of right sided pain. She was seen by PCP and started on Naproxen along with Tylenol. She was seen in ER 06/23 with continued pain
and imaging CT without contrast with large duodenal diverticulum slightly larger since 2019 , lytic lesions in bone with concern for multiple myeloma vs mets, stable pulm nodule, diverticulosis. She was to follow up with PCP and noted + urine cx and
placed on Keflex. She now returns to ER 07/01 wit abnormal labs with creat 0.9 on 06/14 then 1/6 on 06/23 then 3/7 on 06/30. She was also noted with increased calcium level. She has continued complaints of RUQ pain with follow up abdominal film
with moderate fecal burden. She has been seen by renal for KATHRYN and now asked to see for abdominal pain with concern for large diverticulum, constipation and right sided pain.
In review with patient pain is RUQ worse with movement and very deep breath. Pain is sharp and up to 10/10 at worse then down to 7/10. Pain is on rib and wraps around to back. She also admit to nausea and vomiting small amount this am with
constipation and no stools for last week. She denies dysphagia, GERD, diarrhea or rectal bleeding.
2016- colonoscopy Dr. Gallo- diverticulosis, 5 mm polyp cecum- TA 3 mm polyp transverse colon normal mucosa, diverticulosis
Past Medical History
Past Medical History: Hypercholesterolemia, Hypothyroidism and Other (prolapsed bladder, TA polyps, recent noted lytic bone lesions)
Past Surgical History: Gynecological (JUSTINE) and Other (b/l cataracts, hemorrhoidectomy, diverticulosis, diverticulitis --- denies hx bowel surgery )
Social History
Tobacco: Non-Smoker
Alcohol: None
Drug: None
Personal: (recent in last year )
Living: Alone
Employment: Retired
Family History
Family History: Reviewed & Not Pertinent
Allergies / Home Medications
Allergy/AdvReac Type Severity Reaction Status Date / Time
No Known Allergies Allergy Verified 07/01/24 10:26
�Medication �Instructions �Recorded
cholecalciferol (vitamin D3) 25 2,000 unit PO DAILY 06/13/16
mcg (1,000 unit) capsule (Vitamin
D3)
cephalexin 500 mg capsule 500 mg PO BID 7 days #14 caps 06/26/24
acetaminophen 500 mg tablet 500 mg PO QIDPRN PRN mild pain 07/01/24
(Tylenol Extra Strength)
levothyroxine 88 mcg tablet 88 mcg PO DAILY 07/01/24
(Synthroid)
ondansetron 4 mg disintegrating 4 mg PO Q6HPRN PRN NAUSEA 07/01/24
tablet
oxycodone-acetaminophen 5 mg-325 1 tab PO Q6HPRN PRN severe pain 07/01/24
mg tablet
polyethylene glycol 3350 17 gram 17 g PO DAILYPRN PRN CONSTIPATION 07/01/24
oral powder packet (Miralax)
simvastatin 20 mg tablet (Zocor) 20 mg PO HS 07/01/24
tramadol 50 mg tablet 50 mg PO BIDPRN PRN moderate pains 07/01/24
turmeric 400 mg capsule 400 mg PO DAILY 07/01/24
Review of Systems
-
History Source: Patient
Constitutional: Reports Weight Loss (few lbs )
EENT: Reports Other (dry mouth )
Respiratory: Reports No Symptoms
Cardiac: Reports No Symptoms
Abdomen/GI: Reports Abdominal Pain (RUQ but directly on rib area ), Nausea, Vomiting and Constipated
: Reports No Symptoms
Musculoskeletal: Reports No Symptoms
Skin: Reports No Symptoms
Neurological: Reports Weakness
Endocrine: Reports No Symptoms
Hematologic/Lymphatic: Reports No Symptoms
Vital Signs
Temp Pulse Resp BP Pulse Ox
97.6 F 96 18 123/63 95
07/02/24 03:54 07/02/24 03:54 07/02/24 03:54 07/02/24 03:54 07/02/24 03:54
Physical Exam
Exam
General: Other (some distress with pain )
HEENT: Normocephalic and Anicteric
Respiratory: Clear
Cardiac: Regular Rhythm
GI: Soft, Non Distended and Tender (tenderness over lower right ribs )
Musculoskeletal: No Clubbing and No Cyanosis
Skin: Warm and Dry
Neuro: Awake, Alert and AO x 3
Psych: Calm
Results
WBC 6.4 10^3/uL (4.8-10.8) 07/02/24 06:54
Hgb 10.1 g/dL (12.0-16.0) L 07/02/24 06:54
Hct 30.8 % (37.0-47.0) L 07/02/24 06:54
MCV 90.6 fL (81.0-99.0) 07/02/24 06:54
Plt Count 295 10^3/uL (130-400) 07/02/24 06:54
Absolute Neuts (auto) 5.2 10^3/uL (1.4-6.5) 07/02/24 06:54
Sodium 144 mmol/L (135-145) 07/01/24 10:35
Potassium 5.1 mmol/L (3.5-5.1) 07/01/24 10:35
Chloride 103 mmol/L (98-107) 07/01/24 10:35
Carbon Dioxide 25 mmol/L (22-30) 07/01/24 10:35
BUN 48 mg/dl (7-17) H 07/01/24 10:35
Creatinine 3.4 mg/dL (0.6-1.0) H 07/01/24 10:35
Calcium 10.4 mg/dl (8.4-10.2) H 07/01/24 15:29
Total Bilirubin 0.5 mg/dl (0.2-1.3) 07/01/24 10:35
AST 21 U/L (14-36) 07/01/24 10:35
ALT 19 U/L (0-35) 07/01/24 10:35
Alkaline Phosphatase 75 U/L (38-126) 07/01/24 10:35
Diagnostic Image Results:
07/01/24 CR abd CR Abdomen - 1 View
Moderate fecal material throughout the colon. No evidence of intestinal obstruction. Progressed
06/23/23 CT Abd/pel Without Iv Or Oral
In the right upper quadrant, there is a large duodenal diverticulum, which has slightly increased in size since examination of December 29, 2018. These large duodenal diverticula have been reported as being associated with abdominal pain.
Lytic lesions within the visualized bones as described. These findings raise concern for multiple myeloma. Main differential consideration of diffuse bony metastatic disease.
Well-defined 5 mm pulmonary nodule within the visualized right lower lobe of the lung, stable from examination 2018.
Numerous colonic diverticula with no evidence for colonic diverticulitis.
Status post hysterectomy. Small amount of free fluid in the posterior and inferior pelvis.
Prior GI Procedures:
Colonoscopy: 2016- colonoscopy [facility]- diverticulosis, 5 mm polyp cecum- TA 3 mm polyp transverse colon normal mucosa, diverticulosis
Assessment / Plan
-
Pt is a 84yo with hx hypothyroidism, hyperlipidemia, prolapsed bladder, diverticulosis prior diverticulitis with onset of right sided pain. She was seen by PCP and started on Naproxen along with Tylenol. She was seen in ER 06/23 with continued pain
and imaging CT without contrast with large duodenal diverticulum slightly larger, lytic lesions in bone with concern for multiple myeloma vs mets, stable pulm nodule, diverticulosis. She was to follow up with PCP and noted + urine cx and placed on
Keflex. She now returns to ER 07/01 wit abnormal labs with creat 0.9 on 06/14 then 1/6 on 06/23 then 3/7 on 06/30. She was also noted with increased calcium level. She has continued complaints of RUQ pain with follow up abdominal film with moderate
fecal burden. She has been seen by renal for KATHRYN and now asked to see for abdominal pain with concern for large diverticulum, constipation and right sided pain.
-right sided pain
-large right sided duodenal diverticulum
-constipation
-nausea/vomiting
-lytic bone lesions
-KATHRYN
-recent UTI with Keflex use
-recent NSAID use
-hypercalcemia on admission
other med problems:
-Hypothyroidism
-hyperlipidemia
-prolapsed bladder
PLAN:
etiology of abdominal pain related to lytic bone lesion vs less likely large diverticulum as pain directly over right rib and reproducible vs other
per radiology diverticulum present in 2019 with slight increased size
await oncology input
appreciate renal input with KATHRYN
agree with miralax daily and senna BID for constipation
will give dulcolax now and add enema PRN as no stools in last week
ok for regular diet
pain control per hospitalist
NSAID avoidance
-
-
Thank you for consultation and allowing me to participate in the patient's care. Please call the director of corporate responsibility GI physician during the after hours with any questions or concerns.
[2024-07-02 07:37] LABS: Total Protein 5.1 g/dl (6.3-8.2)
[2024-07-02 07:38] LABS: ALT (SGPT) 14 U/L (0-35); AST (SGOT) 16 U/L (14-36); Albumin 3.2 g/dl (3.5-5.0); Alkaline Phosphatase 54 U/L (38-126); Blood Urea Nitrogen 35 mg/dl (7-17); Calcium 9.3 mg/dl (8.4-10.2); Carbon Dioxide 22 mmol/L (22-30); Chloride 111 mmol/L (98-107); Estimated Creatinine Clearance 13 ml/min; Glucose 97 mg/dl (70-99); Potassium 4.8 mmol/L (3.5-5.1); Sodium 142 mmol/L (135-145); Total Bilirubin 0.3 mg/dl (0.2-1.3); eGFR 16.15
[2024-07-02 07:56] VITALS: BP 121/64
[2024-07-02] MEDS: SENOKOT-S 1 TABLET PO (08:10)
[2024-07-02] MEDS: HEPARIN 5000 UNITS SC (08:10)
[2024-07-02] MEDS: VITAMIN D3 (cholecalciferol) 50 MCG PO (08:10)
[2024-07-02] MEDS: MIRALAX 17 GRAMS PO (08:10)
[2024-07-02] MEDS: ZOFRAN 4 MG IV ×2 (08:10→23:48)
[2024-07-02] MEDS: DULCOLAX 10 MG RECTAL (10:43)
--- NOTE | 2024-07-02 10:57 | W.PN.HOSP.TC ---
Addendum entered and electronically signed by Milla Mckee MD 07/02/24 11:43:
Addendum
d/w pharmacist
Due to underlying renal dysfunction, will avoid oxy/morphine. Will switch to hydromorphone ( Dilaudid ) for now
- I reached out to PCP Dr Huddleston about the skin cream
End
Patient has history of melanoma, actinic keratosis, seborrheic keratosis and eczematous dermatitis. For now we will hold down clobetasol, we do not carry it. Will substitute otherwise or asked family to bring it from home.
Original Note:
Today's Communication/Plan
-
Make some changes to pain control regimen
Will reach out to PCP regarding skin ointment request?!
c/w bowel regimen
c/w mild IVF
Blood work for MM
Assessment / Plan
Assessment / Plan
Physical Exam
General: Pain (Right rib); No Fever or Chills
HEENT: Normocephalic, Anicteric, Moist mucous membranes, PERRLA.
Respiratory: Clear and Other (Right sided rib pain mid ribs along to border of 12th rib); No Wheezes, Rales or Rhonchi
Cardiac: S1/S2
GI: Soft, Non Distended, Normal Bowel Sounds and Tender (Across lower abdomen)
Rectal: No bleeding
Genito-urinary: No [place]
Musculoskeletal: No Edema
Skin: Warm and Dry; No Rash
Neuro: AO x 3, No Motor Deficits, Nonfocal/grossly intact, Cranial Nerves Intact and No Sensory Deficits; No Slurred Speech, Facial Droop or Tremors
Psych: Calm
A/P:
#Suspect cancer bone pain
Right sided abdominal pain likely secondary to lytic lesions ribs. Possible discomfort from constipation all is contributing
Per CT on 06/23 showed also large duodenal diverticulum,
Will change pain regimen to Long acting Oxycodone BID and PRN low dose oxy with Lidocaine patch. We might make more changes according to clinical response
Bowel regimen
Sometimes steroid therapy can help also
#KATHRYN
Creat 3.4 on admission
Down to 2.8 today
IV NSS given 2 L in ER continue IV NSS 150 cc/h, change to 100 cc/ hour.
-Hold NSAID patient was recently taking naproxen 500 mg 3 times daily
- Avoid nephrotoxic
-Follow postvoid residuals
- Appreciate nephrology help
# Headache
will c/w pain control
# Per nurse, PCP called to ask to order clobetasol skin ointment BID to pt's skin
Will verify
#Mild hypercalcemia likely secondary to multiple bony lytic lesions
Resolved with IVF
# Anemia related to ongoing cancer.
#Multiple myeloma-new Dx as of 06/23/2024
She has no started therapy
Appreciate oncology help
#Recent E. coli UTI
-Urine culture grew E. coli on 06/23/2024 patient was asymptomatic at that time
-Is on Keflex started on 06/26/2024 will hold further doses as patient is asymptomatic
#Hypothyroidism
-Continue levothyroxine 88 mcg p.o. daily
#HLD
Continue Zocor 20 mg at bedtime
DVT prophylaxis
Subcu Heparin bid
Full code
Total time spent to see the patient on the floor, examine the patient, review data and lab results, discuss treatment plan with patient, nursing staff around 55 minutes
Anticipated Discharge: > 48 hours
Subjective/Interval History
-
Date of Service: July 02, 2024
No chest pain
Reports nausea and abd discomfort
Objective Data
-
Labs:
Laboratory Results
07/02/24
06:54
WBC 6.4
Hgb 10.1 L
Hct 30.8 L
Plt Count 295
Sodium 142
Potassium 4.8
Chloride 111 H
Carbon Dioxide 22
BUN 35 H
Creatinine 2.8 H
Glucose 97
Calcium 9.3
Total Bilirubin 0.3
AST 16
ALT 14
Alkaline Phosphatase 54
Vital Signs:
Vital Signs
Temp Pulse Resp BP Pulse Ox
98.4 F 86 16 121/64 97
07/02/24 07:56 07/02/24 07:56 07/02/24 07:56 07/02/24 07:56 07/02/24 07:56
--- NOTE | 2024-07-02 12:38 | CON.ONC ---
Impression
Impression
lytic lesions - unclear etiology
acute renal failure
hypercalcemia
anemia
Plan
Plan
1. Lytic lesions - unclear etiology - possible multiple myeloma vs. metastatic lesions
-renal insufficiency/ hypercalcemia and anemia raise suspicion for multiple myeloma - however total protein was low
-check SPEP w/ immunofixation, QIGs, and serum free light chains
-biopsy would be indicated for diagnosis - will consult IR - consider possible biopsy of left iliac bone lytic lesion
-check chest CT w/o contrast
Will continue to follow with you.
Patient History
History of Present Illness
84y/o female seen in consultation today regarding lytic lesions.
The patient [facility] w/ pain in her abdomen. CT imaging was performed revealing a large duodenal diverticulum, which has slightly increased in size since examination of December 29, 2018. Lytic lesions within the
anterior cortex of both proximal femurs, ribs, spine, and innominate bones, 1 cm lesion within the left iliac bones. The patient was also diagnosed w/ ecoli UTI, which was treated w/ antibiotics.
She now returns to the [facility] w/ increased pain in her ribs and constipation. Labs on admission revealed acute renal failure w/ creatinine of 3.7, up from 1.6 on 06/23 and 0.9 on 06/14. Calcium was also elevated at 11. Creatinine has improved
to 2.8 today and calcium in 9.3. CBC today reveals some anemia w/ Hb 10.1. Total protein today is not elevated - it was low at 5.1 w/ albumin of 3.2.
The patient notes her pain continues to persist. She has constipation as well in the context of narcotic pain medication. No fevers or chills. No night sweats.
Past-Medical/Surgical History
PMH:
lytic leisons - appreciated on CT imaging 06/23
duodenal diverticulum
hypothyroidism,
HLD
vitamin D deficiency
Past Surgical History: Reports Other
Additional Past Surgical History:
Prolapsed bladder/bowel surgery
Bilateral cataract extraction
Social History
Tobacco: Non-smoker
Alcohol: None
Drug: None
Family History
Family History: Not pertinent
Allergies
Allergy/AdvReac Type Severity Reaction Status Date / Time
No Known Allergies Allergy Verified 07/01/24 10:26
Patient Medication
�Medication �Instructions �Recorded �Confirmed �Last Taken �Type
cholecalciferol (vitamin D3) 25 2,000 unit PO DAILY Supplement 06/13/16 07/01/24 6 Days Ago History
mcg (1,000 unit) capsule (Vitamin ~06/25/24
D3)
cephalexin 500 mg capsule 500 mg PO BID 7 days #14 caps 06/26/24 07/01/24 07/01/24 Rx
acetaminophen 500 mg tablet 500 mg PO QIDPRN PRN mild pain 07/01/24 07/01/24 7 Days Ago History
(Tylenol Extra Strength) ~06/24/24
levothyroxine 88 mcg tablet 88 mcg PO DAILY Thyroid 07/01/24 07/01/24 07/01/24 History
(Synthroid)
ondansetron 4 mg disintegrating 4 mg PO Q6HPRN PRN NAUSEA 07/01/24 07/01/24 Unknown History
tablet
oxycodone-acetaminophen 5 mg-325 1 tab PO Q6HPRN PRN severe pain 07/01/24 07/01/24 Unknown History
mg tablet
polyethylene glycol 3350 17 gram 17 g PO DAILYPRN PRN CONSTIPATION 07/01/24 07/01/24 06/30/24 History
oral powder packet (Miralax)
simvastatin 20 mg tablet (Zocor) 20 mg PO HS High Cholesterol 07/01/24 07/01/24 06/30/24 History
tramadol 50 mg tablet 50 mg PO BIDPRN PRN moderate pains 07/01/24 07/01/24 07/01/24 History
turmeric 400 mg capsule 400 mg PO DAILY Supplement 07/01/24 07/01/24 6 Days Ago History
~06/25/24
Active Medications
Generic Name Dose Route Start Last Admin
Trade Name Freq PRN Reason Stop Dose Admin
Acetaminophen 500 mg 07/02/24 13:00
Acetaminophen 500 Mg Tablet PO 07/30/24 12:59
QID TACHO
Atorvastatin Calcium 10 mg 07/01/24 22:00 07/01/24 22:06
Atorvastatin (Lipitor) 10 Mg Tablet PO 07/29/24 21:59 10 mg
HS TACHO Administration
Heparin Sodium 5,000 units 07/01/24 20:00 07/02/24 08:10
Heparin 5,000 Units/Ml 1 Ml Vial SC 07/29/24 19:59 5,000 units
Q12 TACHO Administration
Hydromorphone HCl 1 mg 07/01/24 16:58 07/02/24 06:24
Hydromorphone 1 Mg/Ml Carpuject IV 07/15/24 16:57 1 mg
Q4HPRN PRN Administration
severe pain
Hydromorphone HCl 2 mg 07/02/24 12:00
Hydromorphone 2 Mg Tablet PO 07/16/24 11:59
Q6 TACHO
Sodium Chloride 1,000 mls @ 125 mls/hr 07/01/24 15:00 07/02/24 11:27
Nss IV 1,000 mls
.Q8H TACHO Administration
Levothyroxine Sodium 88 mcg 07/02/24 06:00 07/02/24 06:18
Levothyroxine 88 Mcg Tablet PO 07/30/24 05:59 88 mcg
DAILY @ 0600 TACHO Administration
Lidocaine 1 patch 07/02/24 12:00
Lidocaine 4% Topical Patch TOPICAL 07/30/24 11:59
DAILY TACHO
Protocol
Ondansetron HCl 4 mg 07/01/24 16:43 07/02/24 08:10
Ondansetron 4 Mg/2 Ml Vial IV 07/29/24 16:42 4 mg
Q6HPRN PRN Administration
nausea and vomiting
Pantoprazole Sodium 40 mg 07/03/24 08:00
Pantoprazole 40 Mg Delayed Release Tablet PO 07/31/24 07:59
DAILY TACHO
Patch Removal 0 patch 07/02/24 20:00
Remove Lidocaine Patch REMOVE 07/30/24 19:59
DAILY@2000 TACOH
Polyethylene Glycol 17 grams 07/02/24 08:00 07/02/24 08:10
Polyethylene Glycol Powder 17 Grams Packet PO 07/30/24 07:59 17 grams
DAILY TACHO Administration
Senna/Docusate Sodium 2 tablet 07/02/24 22:00
Docusate W/Senna (Maria Teresa-Colace) Tablet PO 07/30/24 21:59
HS TACHO
Sodium Chloride 0 flush 07/01/24 18:00
Sodium Chloride 0.9% (Flush) Syringe IV 07/29/24 17:59
PER PROTOCOL TACHO
Review of Systems
-
A ROS was performed w/ pertinent findings as per HPI.
Physical Exam
-
General: Well Developed, Well Nourished and No Apparent Distress
HEENT: Negative Jaundice
Cardiology: Normal Sinus Rhythm
Pulmonary: Clear
Extremities: Negative Edema
Neurology: Non Focal
Labs
Lab Results
WBC 6.4 10^3/uL (4.8-10.8) 07/02/24 06:54
RBC 3.40 10^6/uL (4.20-5.40) L 07/02/24 06:54
Hgb 10.1 g/dL (12.0-16.0) L 07/02/24 06:54
Hct 30.8 % (37.0-47.0) L 07/02/24 06:54
MCV 90.6 fL (81.0-99.0) 07/02/24 06:54
MCH 29.7 pg (27.0-31.0) 07/02/24 06:54
MCHC 32.8 g/dL (33.0-37.0) L 07/02/24 06:54
RDW 13.2 % (11.5-14.5) 07/02/24 06:54
Plt Count 295 10^3/uL (130-400) 07/02/24 06:54
MPV 9.3 fL (7.4-10.4) 07/02/24 06:54
Abs Immat Gran (auto) 0.1 10^3/uL (0-0.05) H 07/02/24 06:54
Absolute Neuts (auto) 5.2 10^3/uL (1.4-6.5) 07/02/24 06:54
Absolute Lymphs (auto) 0.5 10^3/uL (1.2-3.4) L 07/02/24 06:54
Absolute Monos (auto) 0.4 10^3/uL (0.1-0.6) 07/02/24 06:54
Absolute Eos (auto) 0.2 10^3/uL (0-0.7) 07/02/24 06:54
Absolute Basos (auto) 0.0 10^3/uL (0-0.2) 07/02/24 06:54
Immature Gran % 1.6 % (0-0.5) H 07/02/24 06:54
Neutrophils % 81.3 % (42.2-75.2) H 07/02/24 06:54
Lymphocytes % 7.2 % (20.5-51.1) L 07/02/24 06:54
Monocytes % 6.9 % (1.7-9.3) 07/02/24 06:54
Eosinophils % 2.7 % (0-6) 07/02/24 06:54
Basophils % 0.3 % (0-2) 07/02/24 06:54
Creatinine 2.8 mg/dL (0.6-1.0) H 07/02/24 06:54
Vital Signs
Vital Signs
Temp Pulse Resp BP Pulse Ox
98.4 F 86 16 121/64 97
07/02/24 07:56 07/02/24 07:56 07/02/24 07:56 07/02/24 07:56 07/02/24 07:56
--- NOTE | 2024-07-02 12:52 | W.PN.NEPH.PH ---
Today's Communication / Plan
-
Maintain IV fluids follow BMP
Assessment/Plan
-
Assessment
Right-sided abdominal pain
Multiple bony lytic lesions
Large duodenal diverticulum
Acute kidney injury
Constipation
Hypercalcemia
Plan
Volume resuscitation with saline
Creatinine improving with creatinine down to 2.8
Urine output not recorded
Follow BMP
Checked postvoid residual
GI or surgical evaluation given duodenal diverticulum as well as corresponding abdominal pain
Oncology evaluation
Previous discussion with the patient as well as her son regarding her acute kidney injury as well as the possibility of dialysis if her creatinine continues to worsen. However, I suspect that the KATHRYN is related more to NSAID usage at high doses
coupled with poor oral intake.
Remainder of the hypercalcemia workup has been ordered
-
-
Date of Service: July 02, 2024
CC / HPI / ROS
-
Chief Complaint:
Acute kidney injury
History of Present Illness:
Creatinine improving to 2.8
Hemodynamically stable
Review of Systems:
I's and O's not recorded
No fevers
Labs
-
Labs:
WBC 6.4 10^3/uL (4.8-10.8) 07/02/24 06:54
RBC 3.40 10^6/uL (4.20-5.40) L 07/02/24 06:54
Hgb 10.1 g/dL (12.0-16.0) L 07/02/24 06:54
Hct 30.8 % (37.0-47.0) L 07/02/24 06:54
Plt Count 295 10^3/uL (130-400) 07/02/24 06:54
Sodium 142 mmol/L (135-145) 07/02/24 06:54
Potassium 4.8 mmol/L (3.5-5.1) 07/02/24 06:54
Chloride 111 mmol/L (98-107) H 07/02/24 06:54
Carbon Dioxide 22 mmol/L (22-30) 07/02/24 06:54
BUN 35 mg/dl (7-17) H 07/02/24 06:54
Creatinine 2.8 mg/dL (0.6-1.0) H 07/02/24 06:54
eGFR 16.15 07/02/24 06:54
Glucose 97 mg/dl (70-99) 07/02/24 06:54
Calcium 9.3 mg/dl (8.4-10.2) 07/02/24 06:54
Phosphorus 4.3 mg/dl (2.5-4.5) 07/01/24 15:29
Albumin 3.2 g/dl (3.5-5.0) L 07/02/24 06:54
Physical Exam
-
Vital Signs:
Vital Signs
Temp Pulse Resp BP Pulse Ox
98.4 F 86 16 121/64 97
07/02/24 07:56 07/02/24 07:56 07/02/24 07:56 07/02/24 07:56 07/02/24 07:56
Cardiovascular:: Regular rate and rhythm
Respiratory:: Bilateral: Coarse
Lung Excursion:: Normal
Abdomen:: Nontender
Bowel Sounds:: Normal
Extremity Edema:: None: Bilateral:
Mcpherson Catheter: No
[2024-07-02 14:05] VITALS: BMI 19.3
[2024-07-02] MEDS: DILAUDID PO ×2 (14:17→18:14)
[2024-07-02] MEDS: TYLENOL 500 MG PO ×3 (14:20→21:35)
[2024-07-02] MEDS: LIDOCAINE 4% PATCH 1 PATCH TOPICAL (14:20)
[2024-07-02 15:20] VITALS: BP 141/64
--- NOTE | 2024-07-02 16:10 | CM ---
Alert awake oriented patient who lives with alone in a 2 story home with 1 step to enter and 12 steps to bed bathroom. She is independent in all activities of daily living.Spoke with sydnee Rosario at bedside and she has a son Lexie need PT OT for dc
planning.
No adaptive devices
Never had VN/SNF
Pharmacy [facility]
PCP Dr Huddleston
PLAN will need PT Ot for dc planning
[2024-07-02 19:58] VITALS: BP 146/74
[2024-07-02] MEDS: LIPITOR PO ×2 (21:35→21:59)
[2024-07-02] MEDS: HEPARIN SC ×2 (21:35→21:59)
[2024-07-02] MEDS: SENOKOT-S 2 TABLET PO (21:35)
[2024-07-02] MEDS: DILAUDID 2 MG PO (23:48)
[2024-07-02 23:57] VITALS: BP 130/58
[2024-07-03 03:22] VITALS: BP 148/79
[2024-07-03] MEDS: ZOFRAN 4 MG IV (05:56)
[2024-07-03] MEDS: DILAUDID 2 MG PO (05:56)
[2024-07-03] MEDS: SYNTHROID 88 MCG PO (05:56)
[2024-07-03 06:00] VITALS: BMI 19.6
[2024-07-03] MEDS: NSS 1000 IV ×2 (06:06→15:51)
[2024-07-03 06:56] LABS: % Basophils 0.4 % (0-2); % Eosinophils 4.3 % (0-6); % Immature Granulocytes 0.4 % (0-0.5); % Monocytes 5.2 % (1.7-9.3); % Neutrophils 80.7 % (42.2-75.2); Absolute Eosinophils 0.3 10^3/uL (0-0.7); Absolute Lymphocytes 0.7 10^3/uL (1.2-3.4); Absolute Monocytes 0.4 10^3/uL (0.1-0.6); Hematocrit 31.3 % (37.0-47.0); Mean Corp Hgb Conc. 31.9 g/dL (33.0-37.0); Mean Corpuscular Hgb 28.3 pg (27.0-31.0); Mean Corpuscular Volume 88.7 fL (81.0-99.0); Mean Platelet Volume 9.3 fL (7.4-10.4); Nucleated Red Blood Cells % 0 %; Platelet Count 311 10^3/uL (130-400); Red Blood Cell Count 3.53 10^6/uL (4.20-5.40); Red Cell Dist. Width 13.2 % (11.5-14.5); White Blood Cell Count 7.4 10^3/uL (4.8-10.8)
[2024-07-03 07:13] LABS: ALT (SGPT) 14 U/L (0-35); AST (SGOT) 15 U/L (14-36); Albumin 3.1 g/dl (3.5-5.0); Alkaline Phosphatase 53 U/L (38-126); Blood Urea Nitrogen 27 mg/dl (7-17); Calcium 9.2 mg/dl (8.4-10.2); Carbon Dioxide 21 mmol/L (22-30); Chloride 111 mmol/L (98-107); Estimated Creatinine Clearance 15 ml/min; Glucose 78 mg/dl (70-99); Potassium 4.3 mmol/L (3.5-5.1); Sodium 144 mmol/L (135-145); Total Bilirubin 0.3 mg/dl (0.2-1.3); Total Protein 5.2 g/dl (6.3-8.2); eGFR 19.43
[2024-07-03 08:04] VITALS: BP 128/67
[2024-07-03] MEDS: MILK OF MAGNESIA 30 ML PO (08:23)
[2024-07-03] MEDS: DULCOLAX 10 MG RECTAL (08:23)
[2024-07-03] MEDS: HEPARIN 5000 UNITS SC (08:24)
[2024-07-03] MEDS: MIRALAX 17 GRAMS PO (08:24)
[2024-07-03] MEDS: LIDOCAINE 4% PATCH 1 PATCH TOPICAL (08:24)
[2024-07-03] MEDS: PROTONIX 40 MG PO (08:24)
[2024-07-03] MEDS: TYLENOL 500 MG PO ×4 (08:24→21:53)
--- NOTE | 2024-07-03 10:47 | W.PN.HOSP.TC ---
Today's Communication/Plan
-
Bowel regimen today
c/w Dilaudid, safe opioid with renal dysfunction
Will d/w oncology
Assessment / Plan
Assessment / Plan
Physical Exam
General: Pain (Right rib); No Fever or Chills
HEENT: Normocephalic, Anicteric, Moist mucous membranes, PERRLA.
Respiratory: Clear and Other (Right sided rib pain mid ribs along to border of 12th rib); No Wheezes, Rales or Rhonchi
Cardiac: S1/S2
GI: Soft, Non Distended, Normal Bowel Sounds and less tender (Across lower abdomen)
Rectal: No bleeding
Genito-urinary: No Mcpherson
Musculoskeletal: No Edema
Skin: Warm and Dry; No Rash
Neuro: AO x 3, No Motor Deficits, Nonfocal/grossly intact, Cranial Nerves Intact and No Sensory Deficits; No Slurred Speech, Facial Droop or Tremors
Psych: Calm
A/P:
#Suspect cancer bone pain
Right sided abdominal pain likely secondary to lytic lesions ribs. Possible discomfort from constipation all is contributing
Per CT on 06/23 showed also large duodenal diverticulum,
CT chest showed acute superior endplate fracture of T7 with complete vertebral body collapse, severe diffuse bone demineralization.
Will change pain regimen to Dilaudid ATC and PRN, Tylenol QID with Lidocaine patch. We might make more changes according to clinical response
Bowel regimen
Sometimes steroid therapy can help also
d/w Dr Jeronimo, asked IR to do bone biopsy
# Constipation
exacerbated by opioids
Will do Milk of magnesia
Dulcolax Supp. this morning
HS Antonio/
#KATHRYN
Creat 3.4 on admission
Down to 2.4 today
IV NSS given 2 L in ER continue IV NSS 150 cc/h, change to 100 cc/ hour.
-Stopped NSAID patient was recently taking naproxen 500 mg 3 times daily
- Avoid nephrotoxic
-Follow postvoid residuals
- Appreciate nephrology help
# Patient has history of melanoma, actinic keratosis, seborrheic keratosis and eczematous dermatitis. OK to use her own clobetasol as needed.
I reached out to PCP Dr Huddleston.
#Mild hypercalcemia likely secondary to multiple bony lytic lesions
Resolved with IVF
# Anemia related to ongoing cancer.
#Multiple myeloma-new Dx as of 06/23/2024
She has no started therapy, would like bone biopsy to confirm.
Appreciate oncology help
#Recent E. coli UTI
-Urine culture grew E. coli on 06/23/2024 patient was asymptomatic at that time
-Is on Keflex started on 06/26/2024 will hold further doses as patient is asymptomatic
#Hypothyroidism
-Continue levothyroxine 88 mcg p.o. daily
#HLD
Continue Zocor 20 mg at bedtime
DVT prophylaxis
Subcu Heparin bid
Full code
Total time spent to see the patient on the floor, examine the patient, review data and lab results, discuss treatment plan with patient and her daughter, nursing staff around 55 minutes
Anticipated Discharge: Within 24 hours
Subjective/Interval History
-
Date of Service: July 03, 2024
No chest pain
Feels bloated
Pain is better controlled with Dilaudid
Objective Data
-
Labs:
Laboratory Results
07/03/24
06:11
WBC 7.4
Hgb 10.0 L
Hct 31.3 L
Plt Count 311
Sodium 144
Potassium 4.3
Chloride 111 H
Carbon Dioxide 21 L
BUN 27 H
Creatinine 2.4 H
Glucose 78
Calcium 9.2
Total Bilirubin 0.3
AST 15
ALT 14
Alkaline Phosphatase 53
Vital Signs:
Vital Signs
Temp Pulse Resp BP Pulse Ox
98.1 F 87 17 128/67 98
07/03/24 08:04 07/03/24 08:04 07/03/24 08:04 07/03/24 08:04 07/03/24 08:04
I&O
07/02/24 07/03/24 07/04/24
06:59 06:59 06:59
Intake Total 1979 / 1979
Output Total 720 / 720
Balance 1260 / 1260
[2024-07-03 11:25] VITALS: BP 150/67
--- NOTE | 2024-07-03 12:05 | W.PN.NEPH.PH ---
Today's Communication / Plan
-
BMP
DC further IV fluid
Assessment/Plan
-
Assessment
Right-sided abdominal pain
Multiple bony lytic lesions
Large duodenal diverticulum
Acute kidney injury
Constipation
Hypercalcemia
Plan
Volume resuscitation with saline
Creatinine improving with creatinine down to 2.4
Urine output at 700 cc plus moderate incontinence
Weights up
Follow BMP
Checked postvoid residual
GI or surgical evaluation given duodenal diverticulum as well as corresponding abdominal pain
Oncology evaluation
Previous discussion with the patient as well as her son regarding her acute kidney injury as well as the possibility of dialysis if her creatinine continues to worsen. However, I suspect that the KATHRYN is related more to NSAID usage at high doses
coupled with poor oral intake.
Remainder of the hypercalcemia workup has been ordered although calcium levels are now normalized
-
-
Date of Service: July 03, 2024
CC / HPI / ROS
-
Chief Complaint:
Acute kidney injury
History of Present Illness:
Creatinine improving to 2.4
Hemodynamically stable
Review of Systems:
Weights up
No fevers
Labs
-
Labs:
WBC 7.4 10^3/uL (4.8-10.8) 07/03/24 06:11
RBC 3.53 10^6/uL (4.20-5.40) L 07/03/24 06:11
Hgb 10.0 g/dL (12.0-16.0) L 07/03/24 06:11
Hct 31.3 % (37.0-47.0) L 07/03/24 06:11
Plt Count 311 10^3/uL (130-400) 07/03/24 06:11
Sodium 144 mmol/L (135-145) 07/03/24 06:11
Potassium 4.3 mmol/L (3.5-5.1) 07/03/24 06:11
Chloride 111 mmol/L (98-107) H 07/03/24 06:11
Carbon Dioxide 21 mmol/L (22-30) L 07/03/24 06:11
BUN 27 mg/dl (7-17) H 07/03/24 06:11
Creatinine 2.4 mg/dL (0.6-1.0) H 07/03/24 06:11
eGFR 19.43 07/03/24 06:11
Glucose 78 mg/dl (70-99) 07/03/24 06:11
Calcium 9.2 mg/dl (8.4-10.2) 07/03/24 06:11
Phosphorus 4.3 mg/dl (2.5-4.5) 07/01/24 15:29
Albumin 3.1 g/dl (3.5-5.0) L 07/03/24 06:11
Physical Exam
-
Vital Signs:
Vital Signs
Temp Pulse Resp BP Pulse Ox
98.0 F 72 16 150/67 100
07/03/24 11:25 07/03/24 11:25 07/03/24 11:25 07/03/24 11:25 07/03/24 11:25
Cardiovascular:: Regular rate and rhythm
Respiratory:: Bilateral: Coarse
Lung Excursion:: Normal
Abdomen:: Nontender
Bowel Sounds:: Normal
Extremity Edema:: None: Bilateral:
Mcpherson Catheter: No
[2024-07-03] MEDS: DILAUDID PO ×2 (13:20→17:40)
[2024-07-03 14:45] LABS: Intact PTH 14.8 pg/ml (13.6-85.8)
[2024-07-03 15:35] VITALS: BP 132/65
[2024-07-03 19:00] VITALS: BP 129/66
[2024-07-03] MEDS: NSS IV (20:44)
[2024-07-03] MEDS: SENOKOT-S 2 TABLET PO (21:53)
[2024-07-03] MEDS: HEPARIN SC (21:54)
[2024-07-03] MEDS: LIPITOR PO (21:54)
[2024-07-03 23:25] VITALS: BP 117/61
[2024-07-04 03:07] VITALS: BP 115/68
[2024-07-04] MEDS: ZOFRAN 4 MG IV (03:16)
[2024-07-04] MEDS: DILAUDID 2 MG PO ×3 (03:16→17:04)
[2024-07-04] MEDS: DILAUDID PO ×2 (05:58)
[2024-07-04] MEDS: SYNTHROID 88 MCG PO (05:58)
[2024-07-04 06:48] LABS: % Basophils 0.8 % (0-2); % Eosinophils 6.1 % (0-6); % Immature Granulocytes 0.5 % (0-0.5); % Lymphocytes 9.2 % (20.5-51.1); % Monocytes 5.6 % (1.7-9.3); % Neutrophils 77.8 % (42.2-75.2); Absolute Basophils 0.1 10^3/uL (0-0.2); Absolute Eosinophils 0.4 10^3/uL (0-0.7); Absolute Lymphocytes 0.6 10^3/uL (1.2-3.4); Absolute Monocytes 0.4 10^3/uL (0.1-0.6); Hematocrit 29.7 % (37.0-47.0); Hemoglobin 9.6 g/dL (12.0-16.0); Mean Corp Hgb Conc. 32.3 g/dL (33.0-37.0); Mean Corpuscular Hgb 28.2 pg (27.0-31.0); Mean Corpuscular Volume 87.4 fL (81.0-99.0); Mean Platelet Volume 9.6 fL (7.4-10.4); Nucleated Red Blood Cells % 0 %; Platelet Count 328 10^3/uL (130-400); Red Cell Dist. Width 13.2 % (11.5-14.5); White Blood Cell Count 6.4 10^3/uL (4.8-10.8)
[2024-07-04 06:55] LABS: ALT (SGPT) 13 U/L (0-35); AST (SGOT) 17 U/L (14-36); Albumin 2.9 g/dl (3.5-5.0); Alkaline Phosphatase 50 U/L (38-126); Blood Urea Nitrogen 26 mg/dl (7-17); Carbon Dioxide 22 mmol/L (22-30); Chloride 111 mmol/L (98-107); Estimated Creatinine Clearance 18 ml/min; Glucose 87 mg/dl (70-99); Potassium 4.6 mmol/L (3.5-5.1); Sodium 142 mmol/L (135-145); Total Bilirubin 0.2 mg/dl (0.2-1.3); Total Protein 4.8 g/dl (6.3-8.2); eGFR 24.18
[2024-07-04 07:00] VITALS: BP 137/66
[2024-07-04] MEDS: LIDOCAINE 4% PATCH 1 PATCH TOPICAL (08:52)
[2024-07-04] MEDS: PROTONIX 40 MG PO (08:53)
[2024-07-04] MEDS: MIRALAX 17 GRAMS PO (08:53)
[2024-07-04] MEDS: TYLENOL 500 MG PO ×4 (08:53→21:04)
[2024-07-04] MEDS: HEPARIN 5000 UNITS SC ×2 (08:53→20:14)
[2024-07-04 10:48] LABS: Free Kappa Light Chains,Quant 5477.58 mg/L (3.30-19.40); Free Lambda Light Chains,Quant 8.74 mg/L (5.71-26.30); Kappa/Lambda Fr Light Ratio 626.73 (0.26-1.65)
--- NOTE | 2024-07-04 11:21 | W.PN.HOSP.TC ---
Today's Communication/Plan
-
Bone biopsy on Friday
c/w bowel regimen
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
f/w oncology recommendations
Assessment / Plan
Assessment / Plan
Physical Exam
General: Pain (Right rib); No Fever or Chills
HEENT: Normocephalic, Anicteric, Moist mucous membranes, PERRLA.
Respiratory: Clear and Other (Right sided rib pain mid ribs along to border of 12th rib); No Wheezes, Rales or Rhonchi
Cardiac: S1/S2
GI: Soft, Non Distended, Normal Bowel Sounds and less tender (Across lower abdomen)
Rectal: No bleeding
Genito-urinary: No Mcpherson
Musculoskeletal: No Edema
Skin: Warm and Dry; No Rash
Neuro: AO x 3, No Motor Deficits, Nonfocal/grossly intact, Cranial Nerves Intact and No Sensory Deficits; No Slurred Speech, Facial Droop or Tremors
Psych: Calm
A/P:
#Cancer bone pain
Right sided abdominal secondary to lytic lesions ribs.
Per CT on 06/23 showed also large duodenal diverticulum,
CT chest showed acute superior endplate fracture of T7 with complete vertebral body collapse, severe diffuse bone demineralization.
Changed pain regimen to Dilaudid ATC and PRN, Tylenol QID with Lidocaine patch. We might make more changes according to clinical response
Bowel regimen to continue
Sometimes steroid therapy can help also
d/w Dr Jeronimo, asked IR to do bone biopsy
# Constipation
exacerbated by opioids
s/p Milk of magnesia, Dulcolax Supp.
C/W Daily MiraLAX and HS Senna.
#KATHRYN
Creat 3.4 on admission
Down to 2.0 today
IV NSS given 2 L in ER continue IV NSS 150 cc/h, change to 100 cc/ hour then stop.
-Stopped NSAID patient was recently taking naproxen 500 mg 3 times daily
- Avoid nephrotoxic
-Follow postvoid residuals
- Appreciate nephrology help
# Patient has history of melanoma, actinic keratosis, seborrheic keratosis and eczematous dermatitis. OK to use her own clobetasol as needed.
I reached out to PCP Dr Huddleston.
#Mild hypercalcemia likely secondary to multiple bony lytic lesions
Resolved with IVF
# Anemia related to ongoing cancer.
#Multiple myeloma-new Dx as of 06/23/2024
She has no started therapy, would like bone biopsy to confirm.
Appreciate oncology help
#Recent E. coli UTI
-Urine culture grew E. coli on 06/23/2024 patient was asymptomatic at that time
-Is on Keflex started on 06/26/2024 will hold further doses as patient is asymptomatic
#Hypothyroidism
-Continue levothyroxine 88 mcg p.o. daily
#HLD
No changes recommended.
DVT prophylaxis
Subcu Heparin bid
Full code
Total time spent to see the patient on the floor, examine the patient, review data and lab results, discuss treatment plan with patient and her family, nursing staff around 55 minutes
Anticipated Discharge: 24 - 48 hours
Subjective/Interval History
-
Date of Service: July 04, 2024
She reports pain at night and she took her pain medicine
Objective Data
-
Labs:
Laboratory Results
07/04/24
05:22
WBC 6.4
Hgb 9.6 L
Hct 29.7 L
Plt Count 328
Sodium 142
Potassium 4.6
Chloride 111 H
Carbon Dioxide 22
BUN 26 H
Creatinine 2.0 H
Glucose 87
Calcium 9.0
Total Bilirubin 0.2
AST 17
ALT 13
Alkaline Phosphatase 50
Vital Signs:
Vital Signs
Temp Pulse Resp BP Pulse Ox
98.6 F 77 18 137/66 96
07/04/24 07:00 07/04/24 07:00 07/04/24 07:00 07/04/24 07:00 07/04/24 07:00
I&O
07/03/24 07/04/24 07/05/24
06:59 06:59 06:59
Intake Total 1979 / 1979 210 / 210
Output Total 720 / 720
Balance 1260 / 1260 210 / 210
--- NOTE | 2024-07-04 13:00 | W.PN.NEPH.PH ---
Today's Communication / Plan
-
Follow BMP
Bone marrow biopsy in the morning
Assessment/Plan
-
Assessment
Right-sided abdominal pain
Multiple bony lytic lesions
Large duodenal diverticulum
Acute kidney injury
Constipation
Hypercalcemia
Plan
Creatinine improving with creatinine down to 2, urine output not recorded
Urine output at 700 cc plus moderate incontinence
Weights up
Follow BMP
Checked postvoid residual
GI or surgical evaluation given duodenal diverticulum as well as corresponding abdominal pain
Oncology evaluation
Previous discussion with the patient as well as her son regarding her acute kidney injury as well as the possibility of dialysis if her creatinine continues to worsen. However, I suspect that the KATHRYN is related more to NSAID usage at high doses
coupled with poor oral intake.
Remainder of the hypercalcemia workup has been ordered although calcium levels are now normalized
-
-
Date of Service: July 04, 2024
CC / HPI / ROS
-
Chief Complaint:
Acute kidney injury
History of Present Illness:
Creatinine improving to 2
Hemodynamically stable
Review of Systems:
Weights up
No fevers
Labs
-
Labs:
WBC 6.4 10^3/uL (4.8-10.8) 07/04/24 05:22
RBC 3.40 10^6/uL (4.20-5.40) L 07/04/24 05:22
Hgb 9.6 g/dL (12.0-16.0) L 07/04/24 05:22
Hct 29.7 % (37.0-47.0) L 07/04/24 05:22
Plt Count 328 10^3/uL (130-400) 07/04/24 05:22
Sodium 142 mmol/L (135-145) 07/04/24 05:22
Potassium 4.6 mmol/L (3.5-5.1) 07/04/24 05:22
Chloride 111 mmol/L (98-107) H 07/04/24 05:22
Carbon Dioxide 22 mmol/L (22-30) 07/04/24 05:22
BUN 26 mg/dl (7-17) H 07/04/24 05:22
Creatinine 2.0 mg/dL (0.6-1.0) H 07/04/24 05:22
eGFR 24.18 07/04/24 05:22
Glucose 87 mg/dl (70-99) 07/04/24 05:22
Calcium 9.0 mg/dl (8.4-10.2) 07/04/24 05:22
Phosphorus 4.3 mg/dl (2.5-4.5) 07/01/24 15:29
Albumin 2.9 g/dl (3.5-5.0) L 07/04/24 05:22
Physical Exam
-
Vital Signs:
Vital Signs
Temp Pulse Resp BP Pulse Ox
98.6 F 77 18 137/66 96
07/04/24 07:00 07/04/24 07:00 07/04/24 07:00 07/04/24 07:00 07/04/24 07:00
Cardiovascular:: Regular rate and rhythm
Respiratory:: Bilateral: CTA
Lung Excursion:: Normal
Abdomen:: Nontender and Soft
Bowel Sounds:: Normal
Extremity Edema:: +1: Bilateral: (trace)
Mcpherson Catheter: No
--- NOTE | 2024-07-04 13:01 | W.PN.ONC2 ---
Today's Communication / Plan
-
- FLC ratio > 100, SPEP, IGs pending.
- BMbx instead of bone bx 07/05.
- trial steroid for pain
Impression
Impression
lytic lesions
acute renal failure
hypercalcemia
anemia
Plan
Plan
1. Lytic lesions - unclear etiology - possible multiple myeloma vs. metastatic lesions
-renal insufficiency/ hypercalcemia and anemia raise suspicion for multiple myeloma/ calcium normalized with fluids. Cr seems to be down trending as well.
- CT chest with acute T7 fracture, lytic lesions again noted in ribs, spine. No lung mass or adenopathy.
- SPEP w/ immunofixation, QIGs pending however FLC show elevation in kappa to 5477.58 with K:L 626.7. Based on current guidelines a FLC ratio > 100 is diagnostic for MM.
-IR consulted for bone bx however in-pt BMBx would be more diagnostic to expedite management of suspect MM. Discussed with IR, permission obtained to proceed with BMBx instead of bone bx on friday.
- pt still with pain despite Dilaudid. MM pain responsive to steroids. Will trial one dose of dex 4 mg IV now and if helpful start on short course of oral steroids after bx
Will continue to follow with you.
Subjective/Objective
Chief Complaint
anemia, lytic lesions, KATHRYN
Subjective
pt with no new complaints today. She continues to have pain that started at lower sternum and wraps around right rib cage. Denies new back or bone pain, SOB, cough, LE swelling
Vital Signs:
Vital Signs
Temp Pulse Resp BP Pulse Ox
98.6 F 77 18 137/66 96
07/04/24 07:00 07/04/24 07:00 07/04/24 07:00 07/04/24 07:00 07/04/24 07:00
Lab Results:
Laboratory Data
WBC 6.4 10^3/uL (4.8-10.8) 07/04/24 05:22
Hgb 9.6 g/dL (12.0-16.0) L 07/04/24 05:22
Plt Count 328 10^3/uL (130-400) 07/04/24 05:22
eGFR 24.18 07/04/24 05:22
Physical Exam
HEENT: No Jaundice
Cardiology: Normal Sinus Rhythm
Pulmonary: Clear
GI: Soft
Extremities: No Edema
Neuro: Non Focal
Review of Systems
Review of Systems
Constitutional: Denies Fever
Respiratory: Denies Dyspnea
Cardiovascular: Reports Chest Pain
Gastrointestinal: Denies Nausea/Vomiting
[2024-07-04 14:19] LABS: Vitamin D 1,25 Dihydroxy 20.1 pg/mL (19.9-79.3)
[2024-07-04] MEDS: DECADRON 4 MG IV (14:53)
[2024-07-04 15:00] VITALS: BP 153/91
[2024-07-04] MEDS: LIPITOR 10 MG PO (21:04)
[2024-07-04] MEDS: SENOKOT-S 2 TABLET PO (21:04)
[2024-07-04 23:23] VITALS: BP 136/71
[2024-07-05] MEDS: DILAUDID 2 MG PO ×4 (00:18→17:31)
[2024-07-05 04:24] LABS: IgG 459 mg/dl (700-1600); IgM 30 mg/dl (40-230)
[2024-07-05 05:42] LABS: % Basophils 0.6 % (0-2); % Eosinophils 1.5 % (0-6); % Immature Granulocytes 0.3 % (0-0.5); % Lymphocytes 16.8 % (20.5-51.1); % Monocytes 6.2 % (1.7-9.3); % Neutrophils 74.6 % (42.2-75.2); Absolute Eosinophils 0.1 10^3/uL (0-0.7); Absolute Lymphocytes 1.1 10^3/uL (1.2-3.4); Absolute Monocytes 0.4 10^3/uL (0.1-0.6); Absolute Neutrophils 4.8 10^3/uL (1.4-6.5); Hematocrit 31.7 % (37.0-47.0); Hemoglobin 10.4 g/dL (12.0-16.0); Mean Corp Hgb Conc. 32.8 g/dL (33.0-37.0); Mean Corpuscular Hgb 28.4 pg (27.0-31.0); Mean Corpuscular Volume 86.6 fL (81.0-99.0); Mean Platelet Volume 9.5 fL (7.4-10.4); Nucleated Red Blood Cells % 0 %; Platelet Count 337 10^3/uL (130-400); Red Blood Cell Count 3.66 10^6/uL (4.20-5.40); Red Cell Dist. Width 13.1 % (11.5-14.5); White Blood Cell Count 6.5 10^3/uL (4.8-10.8)
[2024-07-05] MEDS: SYNTHROID 88 MCG PO (06:09)
[2024-07-05 06:14] LABS: ALT (SGPT) 15 U/L (0-35); AST (SGOT) 18 U/L (14-36); Albumin 3.2 g/dl (3.5-5.0); Alkaline Phosphatase 57 U/L (38-126); Blood Urea Nitrogen 28 mg/dl (7-17); Calcium 9.8 mg/dl (8.4-10.2); Carbon Dioxide 24 mmol/L (22-30); Chloride 109 mmol/L (98-107); Estimated Creatinine Clearance 19 ml/min; Glucose 84 mg/dl (70-99); Potassium 4.4 mmol/L (3.5-5.1); Sodium 141 mmol/L (135-145); Total Bilirubin 0.2 mg/dl (0.2-1.3); Total Protein 5.2 g/dl (6.3-8.2); eGFR 25.72
[2024-07-05] MEDS: PROTONIX 40 MG PO (07:57)
[2024-07-05] MEDS: HEPARIN 5000 UNITS SC ×2 (07:57→19:39)
[2024-07-05] MEDS: MIRALAX 17 GRAMS PO (07:57)
[2024-07-05] MEDS: LIDOCAINE 4% PATCH 1 PATCH TOPICAL (07:57)
[2024-07-05] MEDS: TYLENOL 500 MG PO ×4 (07:58→21:25)
[2024-07-05 08:27] VITALS: BP 165/92
--- NOTE | 2024-07-05 11:51 | W.PN.NEPH.PH ---
Today's Communication / Plan
-
follow labs
Assessment/Plan
-
Assessment
Right-sided abdominal pain
Multiple bony lytic lesions
Large duodenal diverticulum
Acute kidney injury
Constipation
Hypercalcemia
Plan
suspect that the KATHRYN is related more to NSAID usage at high doses coupled with poor oral intake.
Creatinine improving with creatinine down to 1.9, urine output not recorded
Checked postvoid residual
suspected MM with high FLC, for BM biopsy today per Heme
pain better s/p steroid 07/04
Remainder of the hypercalcemia workup has been ordered although calcium levels are now normalized
encourage po intake
labs in am
d/w pt and son at bedside
-
-
Date of Service: July 05, 2024
CC / HPI / ROS
-
Chief Complaint:
Acute kidney injury
History of Present Illness:
Creatinine improving to 1.9
Hemodynamically stable
evi normal
Review of Systems:
wt not checked
no fever, no cp or sob
Labs
-
Labs:
WBC 6.5 10^3/uL (4.8-10.8) 07/05/24 05:05
RBC 3.66 10^6/uL (4.20-5.40) L 07/05/24 05:05
Hgb 10.4 g/dL (12.0-16.0) L 07/05/24 05:05
Hct 31.7 % (37.0-47.0) L 07/05/24 05:05
Plt Count 337 10^3/uL (130-400) 07/05/24 05:05
Sodium 141 mmol/L (135-145) 07/05/24 05:05
Potassium 4.4 mmol/L (3.5-5.1) 07/05/24 05:05
Chloride 109 mmol/L (98-107) H 07/05/24 05:05
Carbon Dioxide 24 mmol/L (22-30) 07/05/24 05:05
BUN 28 mg/dl (7-17) H 07/05/24 05:05
Creatinine 1.9 mg/dL (0.6-1.0) H 07/05/24 05:05
eGFR 25.72 07/05/24 05:05
Glucose 84 mg/dl (70-99) 07/05/24 05:05
Calcium 9.8 mg/dl (8.4-10.2) 07/05/24 05:05
Phosphorus 4.3 mg/dl (2.5-4.5) 07/01/24 15:29
Albumin 3.2 g/dl (3.5-5.0) L 07/05/24 05:05
Physical Exam
-
Vital Signs:
Vital Signs
Temp Pulse Resp BP Pulse Ox
98.0 F 88 16 165/92 98
07/05/24 08:27 07/05/24 08:27 07/05/24 08:27 07/05/24 08:27 07/05/24 08:27
Cardiovascular:: Regular rate and rhythm
Respiratory:: Bilateral: CTA
Lung Excursion:: Normal
Abdomen:: Nontender and Soft
Extremity Edema:: +1: Bilateral: (trace)
Mcpherson Catheter: No
[2024-07-05 12:51] VITALS: BP 165/92; PULSE 88
[2024-07-05 15:40] VITALS: BP 139/81
--- NOTE | 2024-07-05 15:51 | W.PN.HOSP.TC ---
Today's Communication/Plan
-
Assessment / Plan
Assessment / Plan
Physical Exam
NAD, resting comfortably in bed
Scleral anicteric
Moist mucous membranes
No JVD
CTA bilateral
Normal S1-S2 no murmurs
Soft nontender nondistended bowel sounds active
No peripheral pitting edema
Moves extremities spontaneously
AAOx3
Assessment and Plan
Rib pain secondary to lytic lesions which is suspected secondary to multiple myeloma awaiting confirmation of diagnosis with bone marrow biopsy versus malignancy
-Started on IV steroids by oncology not sure if this is helping as she tells me that the heating pad is giving her the most relief
-Went over multiple myeloma ratio and how we need the bone marrow biopsy to make this diagnosis. She tells me that her father who works for [employer] from multiple myeloma after being diagnosed in his 70s
-For IR bone marrow biopsy today
KATHRYN which is improving
Likely secondary to suspected multiple myeloma versus NSAIDs or could be multifactorial
nonoligouric
Avoid nephrotoxins and hypotension
Renal diet
Hypercalcemia
-Resolved
Hypothyroidism
-Continue levothyroxine
Anticipated Discharge: 24 - 48 hours
Subjective/Interval History
-
Date of Service: July 05, 2024
Seen and examined. No new complaints. No acute overnight events.
Objective Data
-
Labs:
Laboratory Results
07/05/24
05:05
WBC 6.5
Hgb 10.4 L
Hct 31.7 L
Plt Count 337
Sodium 141
Potassium 4.4
Chloride 109 H
Carbon Dioxide 24
BUN 28 H
Creatinine 1.9 H
Glucose 84
Calcium 9.8
Total Bilirubin 0.2
AST 18
ALT 15
Alkaline Phosphatase 57
Vital Signs:
Vital Signs
Temp Pulse Resp BP Pulse Ox
98.1 F 78 17 139/81 97
07/05/24 15:40 07/05/24 15:40 07/05/24 15:40 07/05/24 15:40 07/05/24 15:40
I&O
07/04/24 07/05/24 07/06/24
06:59 06:59 06:59
Intake Total 210 / 210 960 / 960
Balance 210 / 210 960 / 960
--- NOTE | 2024-07-05 17:01 | CM ---
Spoke with pt and rfamily in room.
Pt is going for another test today .
Reviewed OT PT evals . Offered VN or SNF .Pt declined both.
IMM reviewed She signed on chart.
[facility] Home no needs
[2024-07-05] MEDS: SENOKOT-S 2 TABLET PO (21:24)
[2024-07-05] MEDS: LIPITOR 10 MG PO (21:25)
[2024-07-05 22:56] VITALS: BP 120/65
[2024-07-06] VITALS (9 sets, daily range): BP systolic 67–166; BP diastolic 68–90
[2024-07-06] MEDS: DILAUDID 2 MG PO ×4 (00:40→18:17)
[2024-07-06] MEDS: SYNTHROID 88 MCG PO (05:33)
[2024-07-06] MEDS: TYLENOL 500 MG PO ×4 (08:35→20:59)
[2024-07-06] MEDS: LIDOCAINE 4% PATCH 1 PATCH TOPICAL (08:35)
[2024-07-06] MEDS: HEPARIN 5000 UNITS SC ×2 (08:36→20:35)
[2024-07-06] MEDS: PROTONIX 40 MG PO (08:36)
[2024-07-06] MEDS: MIRALAX 17 GRAMS PO (08:36)
--- NOTE | 2024-07-06 10:08 | W.PN.ONC2 ---
Today's Communication / Plan
-
discharge planning
pain management
consider pulse dexamethasone 40mg PO x 4 days after bmbx
Impression
Impression
Multiple myeloma
Father with multiple myeloma
lytic lesions, b/l femurs, ribs, iliac bone, and spine with acute T7 fracture
SPEP with 0.46 g/dL monoclonal protein, BELA shows free kappa, low IgM, IgG, and IgA on QIG.
kappa to 5477.58 with K:L 626.7. Based on current guidelines a FLC ratio > 100 is diagnostic for MM.
acute renal failure Creatine improved from 3.7 to 1.9 yesterday
hypercalcemia -resolved with IVF
normocytic anemia, Hgb >10g/dL
giant duodenal diverticulum
Plan
Plan
Check IgD and IgE
pain management, declined offer for long acting narcotic, feels pain adequately controlled on current pain regimen
f/u bone marrow biopsy
Follow up in the office will be arranged to start systemic therapy and xgeva
Subjective/Objective
Chief Complaint
no new complaints
Subjective
afebrile, no hypoxia or hypotension
using Tylenol, hydromorphone, and Lidoderm patch for pain control
using bowel regimen for constipation
Vital Signs:
Vital Signs
Temp Pulse Resp BP Pulse Ox
98.1 F 88 16 152/90 97
07/06/24 07:59 07/06/24 07:59 07/06/24 07:59 07/06/24 07:59 07/06/24 07:59
Lab Results:
Laboratory Data
WBC 6.5 10^3/uL (4.8-10.8) 07/05/24 05:05
Hgb 10.4 g/dL (12.0-16.0) L 07/05/24 05:05
Plt Count 337 10^3/uL (130-400) 07/05/24 05:05
eGFR 25.72 07/05/24 05:05
Physical Exam
General: Well Developed, Well Nourished and No Apparent Distress
HEENT: Negative Jaundice
Cardiology: Normal Sinus Rhythm
Pulmonary: Clear
Extremities: Negative Edema
Neurology: Non Focal
Review of Systems
Review of Systems
ROS notable for subjective, otherwise negative
[2024-07-06] MEDS: NSS (PRESERVATIVE FREE) 0.25 ML IV (12:19)
[2024-07-06] MEDS: ATIVAN 0.5 MG IV (12:20)
--- NOTE | 2024-07-06 13:33 | W.PN.HOSP.TC ---
Today's Communication/Plan
-
Assessment / Plan
Assessment / Plan
Physical Exam
NAD, resting comfortably in bed
Scleral anicteric
Moist mucous membranes
No JVD
CTA bilateral
Normal S1-S2 no murmurs
Soft nontender nondistended bowel sounds active
No peripheral pitting edema
Moves extremities spontaneously
AAOx3
Assessment and Plan
Rib pain secondary to lytic lesions which is suspected secondary to multiple myeloma awaiting confirmation of diagnosis with bone marrow biopsy versus malignancy
-Started on IV steroids by oncology not sure if this is helping as she tells me that the heating pad is giving her the most relief
-Went over multiple myeloma ratio and how we need the bone marrow biopsy to make this diagnosis. She tells me that her father who works for [employer] from multiple myeloma after being diagnosed in his 70s
-For IR bone marrow biopsy today
KATHRYN which is improving
Likely secondary to suspected multiple myeloma versus NSAIDs or could be multifactorial
nonoligouric
Avoid nephrotoxins and hypotension
Renal diet
Hypercalcemia
-Resolved
Hypothyroidism
-Continue levothyroxine
Anticipated Discharge: Within 24 hours
Subjective/Interval History
-
Date of Service: July 06, 2024
Seen and examined. No new complaints. No acute overnight events.
Objective Data
-
Vital Signs:
Vital Signs
Temp Pulse Resp BP Pulse Ox
98.2 F 67 18 166/76 98
07/06/24 13:19 07/06/24 13:19 07/06/24 13:19 07/06/24 13:19 07/06/24 13:19
I&O
07/05/24 07/06/24 07/07/24
06:59 06:59 06:59
Intake Total 960 / 960 600 / 600 150 / 150
Balance 960 / 960 600 / 600 150 / 150
--- NOTE | 2024-07-06 13:49 | PTCARENOTE ---
pt returned from bone biopsy, 06/24 pain. assisted to bed. CB in reach
[2024-07-06] MEDS: ZOFRAN 4 MG IV (13:56)
--- NOTE | 2024-07-06 15:39 | W.PN.NEPH.PH ---
Today's Communication / Plan
-
labs in am
encourage po intake
Assessment/Plan
-
Assessment
Right-sided abdominal pain
Multiple bony lytic lesions
Large duodenal diverticulum
Acute kidney injury
Constipation
Hypercalcemia
Plan
suspect that the KATHRYN is related more to NSAID usage at high doses coupled with poor oral intake.
Creatinine improving with creatinine down to 1.9, no labs today
Checked postvoid residual
suspected MM with high FLC, s/p BM biopsy today per Heme
steroids per Onc
encourage po intake
labs in am
d/w pt
-
-
Date of Service: July 06, 2024
CC / HPI / ROS
-
Chief Complaint:
Acute kidney injury
History of Present Illness:
Creatinine improving to 1.9, no labs today
Hemodynamically stable
evi was normal
Review of Systems:
wt not checked
no fever, no cp or sob
c/o back pain
Labs
-
Labs:
WBC 6.5 10^3/uL (4.8-10.8) 07/05/24 05:05
RBC 3.66 10^6/uL (4.20-5.40) L 07/05/24 05:05
Hgb 10.4 g/dL (12.0-16.0) L 07/05/24 05:05
Hct 31.7 % (37.0-47.0) L 07/05/24 05:05
Plt Count 337 10^3/uL (130-400) 07/05/24 05:05
Sodium 141 mmol/L (135-145) 07/05/24 05:05
Potassium 4.4 mmol/L (3.5-5.1) 07/05/24 05:05
Chloride 109 mmol/L (98-107) H 07/05/24 05:05
Carbon Dioxide 24 mmol/L (22-30) 07/05/24 05:05
BUN 28 mg/dl (7-17) H 07/05/24 05:05
Creatinine 1.9 mg/dL (0.6-1.0) H 07/05/24 05:05
eGFR 25.72 07/05/24 05:05
Glucose 84 mg/dl (70-99) 07/05/24 05:05
Calcium 9.8 mg/dl (8.4-10.2) 07/05/24 05:05
Phosphorus 4.3 mg/dl (2.5-4.5) 07/01/24 15:29
Albumin 3.2 g/dl (3.5-5.0) L 07/05/24 05:05
Physical Exam
-
Vital Signs:
Vital Signs
Temp Pulse Resp BP Pulse Ox
97.4 F 68 17 140/72 99
07/06/24 15:35 07/06/24 15:35 07/06/24 15:35 07/06/24 15:35 07/06/24 15:35
Cardiovascular:: Regular rate and rhythm
Respiratory:: Bilateral: CTA
Lung Excursion:: Normal
Abdomen:: Nontender and Soft
Extremity Edema:: None: Bilateral:
Mcpherson Catheter: No
--- NOTE | 2024-07-06 16:32 | CM ---
Pt had Cat scan today .
Reviewed OT PT evals . Offered VN .Pt declined both.
IMM reviewed She signed on chart.
[facility] Home no needs
[2024-07-06] MEDS: SENOKOT-S PO (20:59)
[2024-07-06] MEDS: LIPITOR 10 MG PO (20:59)
[2024-07-07] LABS: PTH Related Peptide LC-MS/MS 5.2 pmol/L (0.0-3.4)
[2024-07-07] MEDS: DILAUDID PO (00:51)
[2024-07-07] MEDS: DILAUDID 2 MG PO (05:10)
[2024-07-07] MEDS: SYNTHROID 88 MCG PO (05:11)
[2024-07-07 05:35] LABS: Hematocrit 31.1 % (37.0-47.0); Hemoglobin 10.4 g/dL (12.0-16.0); Mean Corp Hgb Conc. 33.4 g/dL (33.0-37.0); Mean Corpuscular Hgb 29.5 pg (27.0-31.0); Mean Corpuscular Volume 88.1 fL (81.0-99.0); Mean Platelet Volume 9.5 fL (7.4-10.4); Platelet Count 270 10^3/uL (130-400); Red Blood Cell Count 3.53 10^6/uL (4.20-5.40); Red Cell Dist. Width 13.4 % (11.5-14.5); White Blood Cell Count 7.7 10^3/uL (4.8-10.8)
[2024-07-07 05:56] LABS: Blood Urea Nitrogen 26 mg/dl (7-17); Calcium 9.6 mg/dl (8.4-10.2); Carbon Dioxide 24 mmol/L (22-30); Chloride 105 mmol/L (98-107); Estimated Creatinine Clearance 24 ml/min; Glucose 73 mg/dl (70-99); Potassium 4.1 mmol/L (3.5-5.1); Sodium 142 mmol/L (135-145); eGFR 34.15
--- NOTE | 2024-07-07 05:59 | W.PN.ONC2 ---
Today's Communication / Plan
-
Start Dexamethasone 40 mg PO QD x 4 days >> ordered and can start now. Take with food and cont Protonix.
Stable for D/C home to complete 4 days of above therapy.
Follow up arranged (scheduled 07/16 at 2:[address] Mayberry) to start systemic therapy and xgeva.
Impression
Impression
Multiple myeloma
Father with multiple myeloma
lytic lesions, b/l femurs, ribs, iliac bone, and spine with acute T7 fracture
SPEP with 0.46 g/dL monoclonal protein, BELA shows free kappa, low IgM, IgG, and IgA on QIG.
kappa to 5477.58 with K:L 626.7. Based on current guidelines a FLC ratio > 100 is diagnostic for MM.
acute renal failure Creatine improved from 3.7 to 1.9 yesterday
hypercalcemia -resolved with IVF
normocytic anemia, Hgb >10g/dL
giant duodenal diverticulum
Plan
Plan
Check IgD and IgE
pain management, declined offer for long acting narcotic, feels pain adequately controlled on current pain regimen
f/u bone marrow biopsy path
Will start Dexamethasone pending final path and chemotherapy.
Follow up arranged (scheduled 07/16 at 2:[address] Mayberry) to start systemic therapy and xgeva.
Subjective/Objective
Chief Complaint
ACS Heme Onc
Subjective
S/P BMBx yesterday. No complaints. Hoping to go home. Pain well controlled.
Vital Signs:
Vital Signs
Temp Pulse Resp BP Pulse Ox
98.2 F 85 18 114/68 94
07/06/24 23:25 07/06/24 23:25 07/06/24 23:25 07/06/24 23:25 07/06/24 23:25
Lab Results:
Laboratory Data
WBC 7.7 10^3/uL (4.8-10.8) 07/07/24 05:11
Hgb 10.4 g/dL (12.0-16.0) L 07/07/24 05:11
Plt Count 270 10^3/uL (130-400) 07/07/24 05:11
eGFR 34.15 07/07/24 05:11
Physical Exam
HEENT: No Jaundice
Cardiology: S1 and S2
Pulmonary: Clear
GI: Soft
[2024-07-07 06:19] VITALS: BMI 19.0
[2024-07-07 07:22] VITALS: BP 149/77
[2024-07-07] MEDS: MIRALAX 17 GRAMS PO (08:04)
[2024-07-07] MEDS: LIDOCAINE 4% PATCH 1 PATCH TOPICAL (08:04)
[2024-07-07] MEDS: TYLENOL 500 MG PO (08:04)
[2024-07-07] MEDS: DECADRON 40 MG PO (08:04)
[2024-07-07] MEDS: PROTONIX 40 MG PO (08:05)
[2024-07-07] MEDS: HEPARIN 5000 UNITS SC (08:05)
[2024-07-07 10:00] VITALS: BP 140/70
--- NOTE | 2024-07-07 11:15 | CM ---
entered order for dc.
Offered VN .Pt declined both.
IMM reviewed She signed on chart.
Family will drive pt home.
[facility] Home no needs
--- NOTE | 2024-07-07 16:34 | W.PN.HOSP.TC ---
Today's Communication/Plan
-
More than 30 minutes spent in discharge including
Final examination of the patient
Summarizing hospital stay
Instructions for continuing care to all relevant caregivers
Preparation of discharge records, prescriptions, and referral forms
Total time spent (in minutes): 33mins
Assessment / Plan
Assessment / Plan
Physical Exam
NAD, resting comfortably in bed
Scleral anicteric
Moist mucous membranes
No JVD
CTA bilateral
Normal S1-S2 no murmurs
Soft nontender nondistended bowel sounds active
No peripheral pitting edema
Moves extremities spontaneously
AAOx3
Assessment and Plan
Rib pain secondary to lytic lesions which is suspected secondary to multiple myeloma awaiting confirmation of diagnosis with bone marrow biopsy versus malignancy
-Started on IV steroids by oncology not sure if this is helping as she tells me that the heating pad is giving her the most relief
-Went over multiple myeloma ratio and how we need the bone marrow biopsy to make this diagnosis. She tells me that her father who works for [employer] from multiple myeloma after being diagnosed in his 70s
-s/p IR bx
KATHRYN which is improving
Likely secondary to suspected multiple myeloma versus NSAIDs or could be multifactorial
nonoligouric
Avoid nephrotoxins and hypotension
Renal diet
Started on dex 40mg x4days per Onc
Hypercalcemia
-Resolved
Hypothyroidism
-Continue levothyroxine
DC home
Anticipated Discharge: 24 - 48 hours
Subjective/Interval History
-
Date of Service: July 07, 2024
seen and examined. no new complaints. no acute overnight events
Objective Data
-
Labs:
Laboratory Results
07/07/24
05:11
WBC 7.7
Hgb 10.4 L
Hct 31.1 L
Plt Count 270
Sodium 142
Potassium 4.1
Chloride 105
Carbon Dioxide 24
BUN 26 H
Creatinine 1.5 H
Glucose 73
Calcium 9.6
Vital Signs:
Vital Signs
Temp Pulse Resp BP Pulse Ox
98.1 F 86 16 140/70 98
07/07/24 10:00 07/07/24 10:00 07/07/24 10:00 07/07/24 10:00 07/07/24 10:00
I&O
07/06/24 07/07/24 07/08/24
06:59 06:59 06:59
Intake Total 600 / 600 390 / 390 360 / 360
Balance 600 / 600 390 / 390 360 / 360
--- NOTE | 2024-07-07 16:57 | W.DCSUMMARY ---
Discharge Summary
Discharge Data
Date of Admission: 07/01/24
Date of Discharge: 07/07/24
-
Pending Results: Yes
Additional Pending Results:
BMBx results need to be followed with oncology
Hospital Course
84yo with hx hypothyroidism, hyperlipidemia, prolapsed bladder, diverticulosis prior diverticulitis with onset of right sided pain presented with right-sided abdominal pain worsening constipation. Initial abdominal x-ray completed that did not
demonstrate distal obstruction however did show moderate fecal material throughout the colon. Due to sustaining right right-sided rib pain and evidence of renal insufficiency a CT chest was completed that demonstrated lytic lesions of the left
anterior sixth rib. These findings were concerning for cancer therefore additional labs were obtained. Oncology was consulted. There was concern for multiple myeloma versus metastatic cancer. Labs were most consistent with multiple myeloma
however bone marrow biopsy was obtained and these results will need to be followed up with outpatient oncology. Oncology has recommended dexamethasone 40 mg daily x 5 days. Continue to apply lidocaine patch to left rib. Continue taking
hydromorphone 2 mg p.o. for severe pain and please follow-up with outpatient PCP for refill. On the day of discharge renal function continue to improve was 1.5 with a peak of 3.7 on 06/30.
CTChest
IMPRESSION:
1. ACUTE SUPERIOR ENDPLATE FRACTURE of T7 with complete vertebral body collapse (probably pathologic in etiology). 5 mm lytic lesion in the left anterior 6th rib. Many tiny intramedullary lytic lesions throughout the skeleton. Severe diffuse bone
demineralization MULTIPLE MYELOMA is considered most likely. Metastatic disease or lymphoma are less likely diagnostic possibilities.
2. Small bilateral pleural effusions.
3. Small pericardial effusion.
4. Mild subsegmental atelectasis and scarring in both lower lungs.
Repeat CBC and BMP in 3days with PCP
Discharge Plan
-
Patient Disposition: Home (Routine Discharge)
Discharge Diagnosis/Procedures: lytic bone lesion
history of hypothyroidism, HLD, vitamin D deficiency
Condition: Fair
Diet: As tolerated
Activity: As tolerated
Activity Restrictions/Additional Instructions:
Presented with right-sided abdominal pain worsening constipation. Initial abdominal x-ray completed that did not demonstrate distal obstruction however did show moderate fecal material throughout the colon. Due to sustaining right right-sided rib
pain and evidence of renal insufficiency a CT chest was completed that demonstrated lytic lesions of the left anterior sixth rib. These findings were concerning for cancer therefore additional labs were obtained. Oncology was consulted. There was
concern for multiple myeloma versus metastatic cancer. Labs were most consistent with multiple myeloma however bone marrow biopsy was obtained and these results will need to be followed up with outpatient oncology. Oncology has recommended
dexamethasone 40 mg daily x 5 days. Continue to apply lidocaine patch to left rib. Continue taking hydromorphone 2 mg p.o. for severe pain and please follow-up with outpatient PCP for refill. On the day of discharge renal function continue to
improve was 1.5 with a peak of 3.7 on 06/30.
CTChest
IMPRESSION:
1. ACUTE SUPERIOR ENDPLATE FRACTURE of T7 with complete vertebral body collapse (probably pathologic in etiology). 5 mm lytic lesion in the left anterior 6th rib. Many tiny intramedullary lytic lesions throughout the skeleton. Severe diffuse bone
demineralization MULTIPLE MYELOMA is considered most likely. Metastatic disease or lymphoma are less likely diagnostic possibilities.
2. Small bilateral pleural effusions.
3. Small pericardial effusion.
4. Mild subsegmental atelectasis and scarring in both lower lungs.
Repeat CBC and BMP in 3days with PCP
Referrals:
Merlin Herbert MD [Active] - in two to four weeks
Lawrence Huddleston MD [Family Provider] -
Beck Hassan MD [Active] - in one to two weeks
Prescriptions:
New
dexamethasone 4 mg Tablet
40 mg PO DAILY 4 Days Qty: 40 0RF
sennosides-docusate sodium 8.6-50 mg Tablet
2 tab PO HS PRN (Reason: Constipation) 5 Days Qty: 10 0RF
Remove Patch [Remove Lidocaine Patch]
1 patch topical DAILY@2000 PRN (Reason: bone pain) 5 Days Qty: 5 0RF
Rx Instructions:
place over right rib
hydromorphone 2 mg Tablet
2 mg PO Q6 3 Days Qty: 12 0RF
Continued
cholecalciferol (vitamin D3) [Vitamin D3] 1,000 UNIT capsule
2,000 unit PO DAILY
levothyroxine [Synthroid] 88 mcg Tablet
88 mcg PO DAILY
simvastatin [Zocor] 20 mg Tablet
20 mg PO HS
Discontinued
cephalexin 500 mg capsule
500 mg PO BID 7 Days Qty: 14 0RF
polyethylene glycol 3350 [Miralax] 17 gram Powder In Packet
17 g PO DAILYPRN PRN (Reason: CONSTIPATION)
tramadol 50 mg Tablet
50 mg PO BIDPRN PRN (Reason: moderate pains)
acetaminophen [Tylenol Extra Strength] 500 mg Tablet
500 mg PO QIDPRN PRN (Reason: mild pain)
oxycodone-acetaminophen 5-325 mg Tablet
1 tab PO Q6HPRN PRN (Reason: severe pain)
ondansetron [Zofran ODT] 4 mg Tablet,Disintegrating
4 mg PO Q6HPRN PRN (Reason: NAUSEA)
turmeric 400 mg Capsule
400 mg PO DAILY
Discharge Orders:
Discharge Patient (As Directed); Ordered 07/07/24
Ordered By: Anton Mauro
Discharge Date and Time
Discharge Date/Time: 07/07/24 12:04
Print Language: FRISIAN
[2024-07-08 01:12] LABS: Immunoglobulin D <1.3 mg/dL (<=15.3)
[2024-07-08 11:51] LABS: IgE 12 kU/L (<=214)
[2024-07-11 14:34] LABS: IgA 33 mg/dL (68-408)
== END 2024-07-07 12:04 | disposition home or self-care (01) | DRG 841 ==
LOC: 3 WEST ACU 16:37
PROVIDERS: Clinical Nurse Specialist Family Health; Emergency Medicine; Physician Assistant; Radiology Diagnostic Radiology; ADMITTING PHYSICIAN Hospitalist; ATTENDING PHYSICIAN Hospitalist; CONSULT PHYSICIAN Specialist; EMERGENCY PHYSICIAN Emergency Medicine; FAMILY PHYSICIAN Internal Medicine Geriatric Medicine; OTHER PHYSICIAN Internal Medicine; OTHER PHYSICIAN Internal Medicine Hematology & Oncology
PROC: 07DR3ZX Extraction of Iliac Bone Marrow, Percutaneous Approach, Diagnostic (ICD-10-PCS; 2024-07-06)
PROC: 079T3ZX Drainage of Bone Marrow, Percutaneous Approach, Diagnostic (ICD-10-PCS; 2024-07-06)
DX: C90.00 Multiple myeloma not having achieved remission (principal); I31.39 Other pericardial effusion (noninflammatory); N17.9 Acute kidney failure, unspecified; N39.0 Urinary tract infection, site not specified; M48.54XA Collapsed vertebra, not elsewhere classified, thoracic region, initial encounter for fracture; J98.11 Atelectasis; D64.9 Anemia, unspecified; E03.9 Hypothyroidism, unspecified; G89.3 Neoplasm related pain (acute) (chronic); B96.20 Unspecified Escherichia coli [E. coli] as the cause of diseases classified elsewhere; E78.00 Pure hypercholesterolemia, unspecified; E83.52 Hypercalcemia; K57.10 Diverticulosis of small intestine without perforation or abscess without bleeding; K59.00 Constipation, unspecified; R07.81 Pleurodynia; R11.2 Nausea with vomiting, unspecified; R79.89 Other specified abnormal findings of blood chemistry; Z79.890 Hormone replacement therapy; Z79.899 Other long term (current) drug therapy; Z85.820 Personal history of malignant melanoma of skin; Z87.19 Personal history of other diseases of the digestive system; Z86.0100 Personal history of colon polyps, unspecified; Z90.710 Acquired absence of both cervix and uterus; Z80.7 Family history of other malignant neoplasms of lymphoid, hematopoietic and related tissues
CPT/HCPCS: 88305; 88311; 88312; 38222; 71250; 74018; 77012; 80048; 80053; 81003; 81015; 82652; 82784; 82785; 83519; 83521; 83970; 84100; 85025; 85027; 88313; 96361; 96374; 96375; 97116; 97163; 97166; 99285

== ENCOUNTER → 2024-07-09 08:18 | Outpatient (REF) | payer OTHER, SELFPAY ==
[2024-07-09 09:40] LABS: % Basophils 0.2 % (0-2); % Immature Granulocytes 0.5 % (0-0.5); % Lymphocytes 10.6 % (20.5-51.1); % Monocytes 6.4 % (1.7-9.3); % Neutrophils 82.3 % (42.2-75.2); Absolute Immature Granulocytes 0.1 10^3/uL (0-0.05); Absolute Lymphocytes 1.1 10^3/uL (1.2-3.4); Absolute Monocytes 0.6 10^3/uL (0.1-0.6); Absolute Neutrophils 8.3 10^3/uL (1.4-6.5); Hematocrit 32.9 % (37.0-47.0); Hemoglobin 10.7 g/dL (12.0-16.0); Mean Corp Hgb Conc. 32.5 g/dL (33.0-37.0); Mean Corpuscular Hgb 28.2 pg (27.0-31.0); Mean Corpuscular Volume 86.6 fL (81.0-99.0); Mean Platelet Volume 9.9 fL (7.4-10.4); Nucleated Red Blood Cells % 0 %; Platelet Count 332 10^3/uL (130-400); Red Cell Dist. Width 13.6 % (11.5-14.5)
[2024-07-09 10:22] LABS: Blood Urea Nitrogen 36 mg/dl (7-17); Calcium 9.9 mg/dl (8.4-10.2); Carbon Dioxide 29 mmol/L (22-30); Chloride 103 mmol/L (98-107); Glucose 96 mg/dl (70-99); Potassium 4.1 mmol/L (3.5-5.1); Sodium 145 mmol/L (135-145)
== END ==
LOC: HWLAB 08:18
PROVIDERS: ATTENDING PHYSICIAN Hospitalist; FAMILY PHYSICIAN Internal Medicine Geriatric Medicine
DX: E83.52 Hypercalcemia (principal); C90.00 Multiple myeloma not having achieved remission
CPT/HCPCS: 36415; 80048; 85025

== ENCOUNTER → 2024-07-19 09:56 | Outpatient (REF) | payer OTHER, SELFPAY ==
[2024-07-19 11:23] LABS: % Basophils 0.7 % (0-2); % Eosinophils 0.9 % (0-6); % Immature Granulocytes 0.5 % (0-0.5); % Lymphocytes 10.9 % (20.5-51.1); % Monocytes 4.6 % (1.7-9.3); % Neutrophils 82.4 % (42.2-75.2); Absolute Basophils 0.1 10^3/uL (0-0.2); Absolute Eosinophils 0.1 10^3/uL (0-0.7); Absolute Lymphocytes 0.9 10^3/uL (1.2-3.4); Absolute Monocytes 0.4 10^3/uL (0.1-0.6); Absolute Neutrophils 6.8 10^3/uL (1.4-6.5); Hematocrit 34.1 % (37.0-47.0); Hemoglobin 11.2 g/dL (12.0-16.0); Mean Corp Hgb Conc. 32.8 g/dL (33.0-37.0); Mean Corpuscular Hgb 28.5 pg (27.0-31.0); Mean Corpuscular Volume 86.8 fL (81.0-99.0); Mean Platelet Volume 9.5 fL (7.4-10.4); Nucleated Red Blood Cells % 0 %; Platelet Count 329 10^3/uL (130-400); Red Blood Cell Count 3.93 10^6/uL (4.20-5.40); Red Cell Dist. Width 14.1 % (11.5-14.5); White Blood Cell Count 8.2 10^3/uL (4.8-10.8)
[2024-07-19 11:39] LABS: ALT (SGPT) 20 U/L (0-35); AST (SGOT) 20 U/L (14-36); Albumin 4.1 g/dl (3.5-5.0); Alkaline Phosphatase 85 U/L (38-126); Blood Urea Nitrogen 21 mg/dl (7-17); Calcium 9.5 mg/dl (8.4-10.2); Carbon Dioxide 22 mmol/L (22-30); Chloride 103 mmol/L (98-107); Glucose 90 mg/dl (70-99); Potassium 3.9 mmol/L (3.5-5.1); Sodium 142 mmol/L (135-145); Total Bilirubin 0.5 mg/dl (0.2-1.3); Total Protein 6.4 g/dl (6.3-8.2); eGFR > 60.00
== END ==
LOC: HWLAB 09:56
PROVIDERS: ATTENDING PHYSICIAN Internal Medicine Hematology & Oncology; FAMILY PHYSICIAN Internal Medicine Geriatric Medicine
DX: C90.00 Multiple myeloma not having achieved remission (principal)
CPT/HCPCS: 36415; 80053; 85025

== ENCOUNTER → 2024-08-04 11:34 | Outpatient (REF) | payer OTHER, SELFPAY ==
[2024-08-04 15:37] LABS: ALT (SGPT) 18 U/L (0-35); AST (SGOT) 20 U/L (14-36); Albumin 3.9 g/dl (3.5-5.0); Alkaline Phosphatase 109 U/L (38-126); Blood Urea Nitrogen 22 mg/dl (7-17); Carbon Dioxide 27 mmol/L (22-30); Chloride 105 mmol/L (98-107); Glucose 88 mg/dl (70-99); Potassium 4.1 mmol/L (3.5-5.1); Sodium 142 mmol/L (135-145); Total Bilirubin 0.3 mg/dl (0.2-1.3); eGFR > 60.00
[2024-08-04 15:38] LABS: % Basophils 0.3 % (0-2); % Eosinophils 1.6 % (0-6); % Immature Granulocytes 0.4 % (0-0.5); % Lymphocytes 10.5 % (20.5-51.1); % Monocytes 5.9 % (1.7-9.3); % Neutrophils 81.3 % (42.2-75.2); Absolute Eosinophils 0.2 10^3/uL (0-0.7); Absolute Monocytes 0.6 10^3/uL (0.1-0.6); Absolute Neutrophils 7.7 10^3/uL (1.4-6.5); Hematocrit 33.3 % (37.0-47.0); Hemoglobin 10.5 g/dL (12.0-16.0); Mean Corp Hgb Conc. 31.5 g/dL (33.0-37.0); Mean Corpuscular Hgb 28.8 pg (27.0-31.0); Mean Corpuscular Volume 91.2 fL (81.0-99.0); Mean Platelet Volume 9.6 fL (7.4-10.4); Nucleated Red Blood Cells % 0 %; Platelet Count 292 10^3/uL (130-400); Red Blood Cell Count 3.65 10^6/uL (4.20-5.40); Red Cell Dist. Width 15.8 % (11.5-14.5); White Blood Cell Count 9.5 10^3/uL (4.8-10.8)
== END ==
LOC: HWLAB 11:34
PROVIDERS: ATTENDING PHYSICIAN Internal Medicine Hematology & Oncology; FAMILY PHYSICIAN Internal Medicine Geriatric Medicine
DX: C90.00 Multiple myeloma not having achieved remission (principal)
CPT/HCPCS: 36415; 80053; 85025

== ENCOUNTER → 2024-08-11 08:35 | Outpatient (REF) | payer OTHER, SELFPAY ==
[2024-08-11 11:32] LABS: % Basophils 0.3 % (0-2); % Eosinophils 1.2 % (0-6); % Immature Granulocytes 0.5 % (0-0.5); % Monocytes 5.8 % (1.7-9.3); % Neutrophils 86.2 % (42.2-75.2); Absolute Eosinophils 0.1 10^3/uL (0-0.7); Absolute Immature Granulocytes 0.1 10^3/uL (0-0.05); Absolute Lymphocytes 0.7 10^3/uL (1.2-3.4); Absolute Monocytes 0.6 10^3/uL (0.1-0.6); Absolute Neutrophils 9.5 10^3/uL (1.4-6.5); Hematocrit 33.9 % (37.0-47.0); Hemoglobin 10.6 g/dL (12.0-16.0); Mean Corp Hgb Conc. 31.3 g/dL (33.0-37.0); Mean Corpuscular Hgb 28.7 pg (27.0-31.0); Mean Corpuscular Volume 91.9 fL (81.0-99.0); Mean Platelet Volume 10.2 fL (7.4-10.4); Nucleated Red Blood Cells % 0 %; Platelet Count 253 10^3/uL (130-400); Red Blood Cell Count 3.69 10^6/uL (4.20-5.40); Red Cell Dist. Width 16.2 % (11.5-14.5)
[2024-08-11 11:53] LABS: ALT (SGPT) 18 U/L (0-35); AST (SGOT) 17 U/L (14-36); Alkaline Phosphatase 94 U/L (38-126); Blood Urea Nitrogen 20 mg/dl (7-17); Calcium 9.2 mg/dl (8.4-10.2); Carbon Dioxide 27 mmol/L (22-30); Chloride 103 mmol/L (98-107); Glucose 94 mg/dl (70-99); Potassium 4.2 mmol/L (3.5-5.1); Sodium 141 mmol/L (135-145); Total Bilirubin 0.4 mg/dl (0.2-1.3); eGFR 49.55
== END ==
LOC: HWLAB 08:35
PROVIDERS: ATTENDING PHYSICIAN Internal Medicine Hematology & Oncology; FAMILY PHYSICIAN Internal Medicine Geriatric Medicine
DX: C90.00 Multiple myeloma not having achieved remission (principal)
CPT/HCPCS: 36415; 80053; 85025

== ENCOUNTER → 2024-08-17 11:14 | Outpatient (REF) | payer OTHER, SELFPAY ==
[2024-08-17 16:09] LABS: % Basophils 0.5 % (0-2); % Eosinophils 3.1 % (0-6); % Immature Granulocytes 0.4 % (0-0.5); % Lymphocytes 8.5 % (20.5-51.1); % Monocytes 7.7 % (1.7-9.3); % Neutrophils 79.8 % (42.2-75.2); Absolute Eosinophils 0.2 10^3/uL (0-0.7); Absolute Lymphocytes 0.6 10^3/uL (1.2-3.4); Absolute Monocytes 0.6 10^3/uL (0.1-0.6); Absolute Neutrophils 5.8 10^3/uL (1.4-6.5); Hematocrit 32.8 % (37.0-47.0); Hemoglobin 10.6 g/dL (12.0-16.0); Mean Corp Hgb Conc. 32.3 g/dL (33.0-37.0); Mean Corpuscular Hgb 29.9 pg (27.0-31.0); Mean Corpuscular Volume 92.7 fL (81.0-99.0); Mean Platelet Volume 10.9 fL (7.4-10.4); Nucleated Red Blood Cells % 0 %; Platelet Count 259 10^3/uL (130-400); Red Blood Cell Count 3.54 10^6/uL (4.20-5.40); Red Cell Dist. Width 16.3 % (11.5-14.5); White Blood Cell Count 7.3 10^3/uL (4.8-10.8)
[2024-08-17 16:11] LABS: ALT (SGPT) 15 U/L (0-35); AST (SGOT) 17 U/L (14-36); Albumin 4.1 g/dl (3.5-5.0); Alkaline Phosphatase 115 U/L (38-126); Blood Urea Nitrogen 22 mg/dl (7-17); Calcium 9.2 mg/dl (8.4-10.2); Carbon Dioxide 25 mmol/L (22-30); Chloride 103 mmol/L (98-107); Glucose 91 mg/dl (70-99); Potassium 4.1 mmol/L (3.5-5.1); Sodium 141 mmol/L (135-145); Total Bilirubin 0.3 mg/dl (0.2-1.3); Total Protein 6.3 g/dl (6.3-8.2); eGFR 55.55
[2024-08-19 00:25] LABS: IgG 466 mg/dl (700-1600); IgM 43 mg/dl (40-230)
== END ==
LOC: HWLAB 11:14
PROVIDERS: ATTENDING PHYSICIAN Internal Medicine Hematology & Oncology; FAMILY PHYSICIAN Internal Medicine Geriatric Medicine
DX: C90.00 Multiple myeloma not having achieved remission (principal)
CPT/HCPCS: 36415; 80053; 82232; 82784; 83521; 84155; 84165; 85025; 86334

== ENCOUNTER → 2024-08-24 10:23 | Outpatient (REF) | payer OTHER, SELFPAY ==
[2024-08-24 12:37] LABS: % Basophils 0.7 % (0-2); % Eosinophils 2.7 % (0-6); % Immature Granulocytes 0.5 % (0-0.5); % Lymphocytes 7.8 % (20.5-51.1); % Monocytes 6.2 % (1.7-9.3); % Neutrophils 82.1 % (42.2-75.2); Absolute Basophils 0.1 10^3/uL (0-0.2); Absolute Eosinophils 0.2 10^3/uL (0-0.7); Absolute Lymphocytes 0.6 10^3/uL (1.2-3.4); Absolute Monocytes 0.5 10^3/uL (0.1-0.6); Hematocrit 35.2 % (37.0-47.0); Hemoglobin 10.8 g/dL (12.0-16.0); Mean Corp Hgb Conc. 30.7 g/dL (33.0-37.0); Mean Corpuscular Volume 94.6 fL (81.0-99.0); Nucleated Red Blood Cells % 0 %; Platelet Count 253 10^3/uL (130-400); Red Blood Cell Count 3.72 10^6/uL (4.20-5.40); Red Cell Dist. Width 16.8 % (11.5-14.5); White Blood Cell Count 7.3 10^3/uL (4.8-10.8)
[2024-08-24 12:55] LABS: ALT (SGPT) 14 U/L (0-35); AST (SGOT) 20 U/L (14-36); Alkaline Phosphatase 94 U/L (38-126); Blood Urea Nitrogen 20 mg/dl (7-17); Calcium 9.3 mg/dl (8.4-10.2); Carbon Dioxide 25 mmol/L (22-30); Chloride 105 mmol/L (98-107); Glucose 89 mg/dl (70-99); Potassium 4.4 mmol/L (3.5-5.1); Sodium 139 mmol/L (135-145); Total Bilirubin 0.5 mg/dl (0.2-1.3); Total Protein 6.1 g/dl (6.3-8.2); eGFR > 60.00
== END ==
LOC: HWLAB 10:23
PROVIDERS: ATTENDING PHYSICIAN Internal Medicine Hematology & Oncology; FAMILY PHYSICIAN Internal Medicine Geriatric Medicine
DX: C90.00 Multiple myeloma not having achieved remission (principal)
CPT/HCPCS: 36415; 80053; 85025

== ENCOUNTER → 2024-08-31 12:31 | Outpatient (REF) | payer OTHER, SELFPAY ==
[2024-08-31 16:32] LABS: % Basophils 0.8 % (0-2); % Eosinophils 2.3 % (0-6); % Immature Granulocytes 0.4 % (0-0.5); % Lymphocytes 11.4 % (20.5-51.1); % Monocytes 7.9 % (1.7-9.3); % Neutrophils 77.2 % (42.2-75.2); Absolute Basophils 0.1 10^3/uL (0-0.2); Absolute Eosinophils 0.2 10^3/uL (0-0.7); Absolute Lymphocytes 0.9 10^3/uL (1.2-3.4); Absolute Monocytes 0.6 10^3/uL (0.1-0.6); Absolute Neutrophils 5.8 10^3/uL (1.4-6.5); Hematocrit 36.1 % (37.0-47.0); Hemoglobin 11.2 g/dL (12.0-16.0); Mean Corpuscular Hgb 28.9 pg (27.0-31.0); Nucleated Red Blood Cells % 0 %; Platelet Count 260 10^3/uL (130-400); Red Blood Cell Count 3.88 10^6/uL (4.20-5.40); Red Cell Dist. Width 16.5 % (11.5-14.5); White Blood Cell Count 7.5 10^3/uL (4.8-10.8)
[2024-08-31 16:40] LABS: ALT (SGPT) 13 U/L (0-35); AST (SGOT) 18 U/L (14-36); Albumin 4.2 g/dl (3.5-5.0); Alkaline Phosphatase 105 U/L (38-126); Blood Urea Nitrogen 21 mg/dl (7-17); Calcium 9.2 mg/dl (8.4-10.2); Carbon Dioxide 26 mmol/L (22-30); Chloride 105 mmol/L (98-107); Glucose 91 mg/dl (70-99); Potassium 4.2 mmol/L (3.5-5.1); Sodium 138 mmol/L (135-145); Total Bilirubin 0.5 mg/dl (0.2-1.3); Total Protein 6.3 g/dl (6.3-8.2); eGFR > 60.00
== END ==
LOC: HWLAB 12:31
PROVIDERS: ATTENDING PHYSICIAN Internal Medicine Hematology & Oncology
DX: C90.00 Multiple myeloma not having achieved remission (principal)
CPT/HCPCS: 36415; 80053; 85025

== ENCOUNTER → 2024-09-06 09:34 | Outpatient (REF) | payer OTHER, SELFPAY ==
[2024-09-06 12:28] LABS: % Eosinophils 1.3 % (0-6); % Immature Granulocytes 0.4 % (0-0.5); % Lymphocytes 8.2 % (20.5-51.1); % Neutrophils 82.1 % (42.2-75.2); Absolute Basophils 0.1 10^3/uL (0-0.2); Absolute Eosinophils 0.1 10^3/uL (0-0.7); Absolute Lymphocytes 0.7 10^3/uL (1.2-3.4); Absolute Monocytes 0.6 10^3/uL (0.1-0.6); Absolute Neutrophils 6.8 10^3/uL (1.4-6.5); Hematocrit 35.3 % (37.0-47.0); Hemoglobin 10.8 g/dL (12.0-16.0); Mean Corp Hgb Conc. 30.6 g/dL (33.0-37.0); Mean Corpuscular Hgb 29.3 pg (27.0-31.0); Mean Corpuscular Volume 95.9 fL (81.0-99.0); Mean Platelet Volume 10.7 fL (7.4-10.4); Nucleated Red Blood Cells % 0 %; Platelet Count 236 10^3/uL (130-400); Red Blood Cell Count 3.68 10^6/uL (4.20-5.40); Red Cell Dist. Width 16.2 % (11.5-14.5); White Blood Cell Count 8.3 10^3/uL (4.8-10.8)
[2024-09-06 12:39] LABS: ALT (SGPT) 11 U/L (0-35); AST (SGOT) 17 U/L (14-36); Albumin 3.9 g/dl (3.5-5.0); Alkaline Phosphatase 91 U/L (38-126); Blood Urea Nitrogen 20 mg/dl (7-17); Calcium 9.1 mg/dl (8.4-10.2); Carbon Dioxide 26 mmol/L (22-30); Chloride 106 mmol/L (98-107); Glucose 87 mg/dl (70-99); Potassium 4.1 mmol/L (3.5-5.1); Sodium 138 mmol/L (135-145); Total Bilirubin 0.4 mg/dl (0.2-1.3); eGFR > 60.00
[2024-09-08 00:35] LABS: Beta-2-Microglobulin 2.6 mg/L (<=3.0)
[2024-09-09 02:27] LABS: Albumin 3.86 g/dL (3.75-5.01); Alpha 1 Globulin 0.28 g/dL (0.19-0.46); Free Kappa Light Chains,Quant 96.01 mg/L (3.30-19.40); Free Lambda Light Chains,Quant 9.79 mg/L (5.71-26.30); IgA 32 mg/dL (68-408); IgG 401 mg/dL (768-1632); IgM 47 mg/dL (35-263); Immunofixation Electrophoresis IFE Done; Kappa/Lambda Fr Light Ratio 9.81 (0.26-1.65); Total Protein-Electrophoresis 5.9 g/dL (6.3-8.2)
== END ==
LOC: HWLAB 09:34
PROVIDERS: ATTENDING PHYSICIAN Nurse Practitioner Adult Health; FAMILY PHYSICIAN Internal Medicine Geriatric Medicine; REFERRING PHYSICIAN Internal Medicine Hematology & Oncology
DX: C90.00 Multiple myeloma not having achieved remission (principal)
CPT/HCPCS: 36415; 80053; 82232; 82784; 83521; 84155; 84165; 85025; 86334

== ENCOUNTER → 2024-09-13 10:43 | Outpatient (REF) | payer OTHER, SELFPAY ==
[2024-09-13 15:58] LABS: % Basophils 0.8 % (0-2); % Eosinophils 3.1 % (0-6); % Immature Granulocytes 0.8 % (0-0.5); % Lymphocytes 7.7 % (20.5-51.1); % Monocytes 5.8 % (1.7-9.3); % Neutrophils 81.8 % (42.2-75.2); Absolute Basophils 0.1 10^3/uL (0-0.2); Absolute Eosinophils 0.3 10^3/uL (0-0.7); Absolute Immature Granulocytes 0.1 10^3/uL (0-0.05); Absolute Lymphocytes 0.7 10^3/uL (1.2-3.4); Absolute Monocytes 0.5 10^3/uL (0.1-0.6); Absolute Neutrophils 7.5 10^3/uL (1.4-6.5); Hematocrit 34.4 % (37.0-47.0); Hemoglobin 10.6 g/dL (12.0-16.0); Mean Corp Hgb Conc. 30.8 g/dL (33.0-37.0); Mean Corpuscular Volume 94.2 fL (81.0-99.0); Mean Platelet Volume 11.1 fL (7.4-10.4); Nucleated Red Blood Cells % 0 %; Platelet Count 245 10^3/uL (130-400); Red Blood Cell Count 3.65 10^6/uL (4.20-5.40); Red Cell Dist. Width 15.9 % (11.5-14.5); White Blood Cell Count 9.2 10^3/uL (4.8-10.8)
[2024-09-13 16:19] LABS: ALT (SGPT) 12 U/L (0-35); AST (SGOT) 18 U/L (14-36); Albumin 3.9 g/dl (3.5-5.0); Alkaline Phosphatase 96 U/L (38-126); Blood Urea Nitrogen 18 mg/dl (7-17); Carbon Dioxide 26 mmol/L (22-30); Chloride 103 mmol/L (98-107); Glucose 86 mg/dl (70-99); Potassium 4.1 mmol/L (3.5-5.1); Sodium 137 mmol/L (135-145); Total Bilirubin 0.3 mg/dl (0.2-1.3); eGFR > 60.00
== END ==
LOC: HWLAB 10:43
PROVIDERS: ATTENDING PHYSICIAN Internal Medicine Hematology & Oncology; FAMILY PHYSICIAN Internal Medicine Geriatric Medicine
DX: C90.00 Multiple myeloma not having achieved remission (principal)
CPT/HCPCS: 36415; 80053; 85025

== ENCOUNTER → 2024-09-22 10:23 | Outpatient (REF) | payer OTHER, SELFPAY ==
[2024-09-22 12:35] LABS: % Basophils 0.8 % (0-2); % Immature Granulocytes 0.7 % (0-0.5); % Lymphocytes 9.3 % (20.5-51.1); % Monocytes 7.8 % (1.7-9.3); % Neutrophils 77.4 % (42.2-75.2); Absolute Basophils 0.1 10^3/uL (0-0.2); Absolute Eosinophils 0.4 10^3/uL (0-0.7); Absolute Immature Granulocytes 0.1 10^3/uL (0-0.05); Absolute Lymphocytes 0.8 10^3/uL (1.2-3.4); Absolute Monocytes 0.7 10^3/uL (0.1-0.6); Absolute Neutrophils 6.9 10^3/uL (1.4-6.5); Hematocrit 34.6 % (37.0-47.0); Hemoglobin 10.5 g/dL (12.0-16.0); Mean Corp Hgb Conc. 30.3 g/dL (33.0-37.0); Mean Corpuscular Hgb 28.8 pg (27.0-31.0); Mean Corpuscular Volume 95.1 fL (81.0-99.0); Mean Platelet Volume 10.9 fL (7.4-10.4); Nucleated Red Blood Cells % 0 %; Platelet Count 243 10^3/uL (130-400); Red Blood Cell Count 3.64 10^6/uL (4.20-5.40); White Blood Cell Count 8.9 10^3/uL (4.8-10.8)
[2024-09-22 14:18] LABS: ALT (SGPT) 11 U/L (0-35); AST (SGOT) 16 U/L (14-36); Albumin 3.9 g/dl (3.5-5.0); Alkaline Phosphatase 91 U/L (38-126); Blood Urea Nitrogen 14 mg/dl (7-17); Calcium 8.8 mg/dl (8.4-10.2); Carbon Dioxide 26 mmol/L (22-30); Chloride 103 mmol/L (98-107); Glucose 78 mg/dl (70-99); Potassium 4.2 mmol/L (3.5-5.1); Sodium 135 mmol/L (135-145); Total Bilirubin 0.4 mg/dl (0.2-1.3); Total Protein 5.9 g/dl (6.3-8.2); eGFR > 60.00
== END ==
LOC: HWLAB 10:23
PROVIDERS: ATTENDING PHYSICIAN Internal Medicine Hematology & Oncology; FAMILY PHYSICIAN Internal Medicine Geriatric Medicine
DX: C90.00 Multiple myeloma not having achieved remission (principal)
CPT/HCPCS: 36415; 80053; 85025

== ENCOUNTER → 2024-09-24 12:41 | Outpatient (REF) | payer OTHER, SELFPAY | LOC: RAD 12:41 | PROVIDERS: ATTENDING PHYSICIAN Nurse Practitioner Adult Health; FAMILY PHYSICIAN Internal Medicine Geriatric Medicine | DX: C90.00 Multiple myeloma not having achieved remission (principal); R22.43 Localized swelling, mass and lump, lower limb, bilateral | CPT/HCPCS: 93970 ==

== ENCOUNTER → 2024-09-27 11:09 | Outpatient (REF) | payer OTHER, SELFPAY ==
[2024-09-27 15:51] LABS: % Basophils 1.1 % (0-2); % Eosinophils 3.9 % (0-6); % Immature Granulocytes 0.5 % (0-0.5); % Lymphocytes 9.1 % (20.5-51.1); % Monocytes 8.8 % (1.7-9.3); % Neutrophils 76.6 % (42.2-75.2); Absolute Basophils 0.1 10^3/uL (0-0.2); Absolute Eosinophils 0.4 10^3/uL (0-0.7); Absolute Immature Granulocytes 0.1 10^3/uL (0-0.05); Absolute Lymphocytes 0.9 10^3/uL (1.2-3.4); Absolute Monocytes 0.8 10^3/uL (0.1-0.6); Absolute Neutrophils 7.1 10^3/uL (1.4-6.5); Hematocrit 34.4 % (37.0-47.0); Hemoglobin 10.5 g/dL (12.0-16.0); Mean Corp Hgb Conc. 30.5 g/dL (33.0-37.0); Mean Corpuscular Hgb 28.9 pg (27.0-31.0); Mean Corpuscular Volume 94.8 fL (81.0-99.0); Mean Platelet Volume 11.1 fL (7.4-10.4); Nucleated Red Blood Cells % 0 %; Platelet Count 223 10^3/uL (130-400); Red Blood Cell Count 3.63 10^6/uL (4.20-5.40); Red Cell Dist. Width 14.6 % (11.5-14.5); White Blood Cell Count 9.3 10^3/uL (4.8-10.8)
[2024-09-27 15:53] LABS: ALT (SGPT) 12 U/L (0-35); AST (SGOT) 16 U/L (14-36); Alkaline Phosphatase 89 U/L (38-126); Blood Urea Nitrogen 20 mg/dl (7-17); Calcium 8.6 mg/dl (8.4-10.2); Carbon Dioxide 26 mmol/L (22-30); Chloride 104 mmol/L (98-107); Glucose 86 mg/dl (70-99); Potassium 3.8 mmol/L (3.5-5.1); Sodium 139 mmol/L (135-145); Total Bilirubin 0.4 mg/dl (0.2-1.3); Total Protein 5.6 g/dl (6.3-8.2); eGFR 55.55
[2024-09-27 16:01] LABS: Albumin 3.7 g/dl (3.5-5.0)
== END ==
LOC: HWLAB 11:09
PROVIDERS: ATTENDING PHYSICIAN Internal Medicine Hematology & Oncology; FAMILY PHYSICIAN Internal Medicine Geriatric Medicine
DX: C90.00 Multiple myeloma not having achieved remission (principal)
CPT/HCPCS: 36415; 80053; 85025

== ENCOUNTER → 2024-10-06 11:42 | Outpatient (REF) | payer OTHER, SELFPAY ==
[2024-10-06 16:22] LABS: % Basophils 1.5 % (0-2); % Eosinophils 2.6 % (0-6); % Immature Granulocytes 0.3 % (0-0.5); % Lymphocytes 15.2 % (20.5-51.1); % Monocytes 9.4 % (1.7-9.3); Absolute Basophils 0.1 10^3/uL (0-0.2); Absolute Eosinophils 0.2 10^3/uL (0-0.7); Absolute Monocytes 0.6 10^3/uL (0.1-0.6); Absolute Neutrophils 4.7 10^3/uL (1.4-6.5); Hematocrit 34.7 % (37.0-47.0); Hemoglobin 10.6 g/dL (12.0-16.0); Mean Corp Hgb Conc. 30.5 g/dL (33.0-37.0); Mean Corpuscular Hgb 29.2 pg (27.0-31.0); Mean Corpuscular Volume 95.6 fL (81.0-99.0); Nucleated Red Blood Cells % 0 %; Platelet Count 230 10^3/uL (130-400); Red Blood Cell Count 3.63 10^6/uL (4.20-5.40); Red Cell Dist. Width 14.2 % (11.5-14.5); White Blood Cell Count 6.6 10^3/uL (4.8-10.8)
[2024-10-06 16:31] LABS: ALT (SGPT) 14 U/L (0-35); AST (SGOT) 20 U/L (14-36); Albumin 3.6 g/dl (3.5-5.0); Alkaline Phosphatase 82 U/L (38-126); Blood Urea Nitrogen 16 mg/dl (7-17); Calcium 8.4 mg/dl (8.4-10.2); Carbon Dioxide 24 mmol/L (22-30); Chloride 108 mmol/L (98-107); Glucose 85 mg/dl (70-99); Potassium 4.2 mmol/L (3.5-5.1); Sodium 137 mmol/L (135-145); Total Bilirubin 0.3 mg/dl (0.2-1.3); Total Protein 5.7 g/dl (6.3-8.2); eGFR > 60.00
[2024-10-08 19:09] LABS: Beta-2-Microglobulin 2.3 mg/L (<=3.0)
== END ==
LOC: HWLAB 11:42
PROVIDERS: ATTENDING PHYSICIAN Internal Medicine Hematology & Oncology; FAMILY PHYSICIAN Internal Medicine Geriatric Medicine; REFERRING PHYSICIAN Nurse Practitioner Adult Health
DX: C90.00 Multiple myeloma not having achieved remission (principal)
CPT/HCPCS: 36415; 80053; 82232; 82784; 83521; 84155; 84165; 85025; 86334

== ENCOUNTER → 2024-10-12 08:24 | Outpatient (REF) | payer OTHER, SELFPAY ==
[2024-10-12 09:51] LABS: % Basophils 2.8 % (0-2); % Immature Granulocytes 0.4 % (0-0.5); % Lymphocytes 15.4 % (20.5-51.1); % Monocytes 10.3 % (1.7-9.3); % Neutrophils 67.1 % (42.2-75.2); Absolute Basophils 0.2 10^3/uL (0-0.2); Absolute Eosinophils 0.3 10^3/uL (0-0.7); Absolute Monocytes 0.7 10^3/uL (0.1-0.6); Absolute Neutrophils 4.5 10^3/uL (1.4-6.5); Hematocrit 35.6 % (37.0-47.0); Hemoglobin 10.8 g/dL (12.0-16.0); Mean Corp Hgb Conc. 30.3 g/dL (33.0-37.0); Mean Corpuscular Hgb 28.5 pg (27.0-31.0); Mean Corpuscular Volume 93.9 fL (81.0-99.0); Mean Platelet Volume 10.8 fL (7.4-10.4); Nucleated Red Blood Cells % 0 %; Platelet Count 247 10^3/uL (130-400); Red Blood Cell Count 3.79 10^6/uL (4.20-5.40); Red Cell Dist. Width 13.9 % (11.5-14.5); White Blood Cell Count 6.7 10^3/uL (4.8-10.8)
[2024-10-12 10:31] LABS: ALT (SGPT) 12 U/L (0-35); AST (SGOT) 17 U/L (14-36); Albumin 3.7 g/dl (3.5-5.0); Alkaline Phosphatase 82 U/L (38-126); Blood Urea Nitrogen 16 mg/dl (7-17); Calcium 8.9 mg/dl (8.4-10.2); Carbon Dioxide 26 mmol/L (22-30); Chloride 105 mmol/L (98-107); Glucose 79 mg/dl (70-99); Sodium 139 mmol/L (135-145); Total Bilirubin 0.3 mg/dl (0.2-1.3); Total Protein 5.8 g/dl (6.3-8.2); eGFR > 60.00
== END ==
LOC: HWLAB 08:24
PROVIDERS: ATTENDING PHYSICIAN Internal Medicine Hematology & Oncology; FAMILY PHYSICIAN Internal Medicine Geriatric Medicine
DX: C90.00 Multiple myeloma not having achieved remission (principal)
CPT/HCPCS: 36415; 80053; 85025

== ENCOUNTER → 2024-10-19 10:47 | Outpatient (REF) | payer OTHER, SELFPAY ==
[2024-10-19 14:54] LABS: % Basophils 1.9 % (0-2); % Eosinophils 3.2 % (0-6); % Immature Granulocytes 0.4 % (0-0.5); % Lymphocytes 9.6 % (20.5-51.1); % Monocytes 5.1 % (1.7-9.3); % Neutrophils 79.8 % (42.2-75.2); Absolute Basophils 0.2 10^3/uL (0-0.2); Absolute Eosinophils 0.3 10^3/uL (0-0.7); Absolute Monocytes 0.5 10^3/uL (0.1-0.6); Absolute Neutrophils 7.9 10^3/uL (1.4-6.5); Hematocrit 35.6 % (37.0-47.0); Hemoglobin 11.2 g/dL (12.0-16.0); Mean Corp Hgb Conc. 31.5 g/dL (33.0-37.0); Mean Corpuscular Hgb 28.6 pg (27.0-31.0); Mean Corpuscular Volume 90.8 fL (81.0-99.0); Nucleated Red Blood Cells % 0 %; Platelet Count 247 10^3/uL (130-400); Red Blood Cell Count 3.92 10^6/uL (4.20-5.40); Red Cell Dist. Width 13.5 % (11.5-14.5); White Blood Cell Count 9.9 10^3/uL (4.8-10.8)
[2024-10-19 15:05] LABS: ALT (SGPT) 12 U/L (0-35); AST (SGOT) 17 U/L (14-36); Alkaline Phosphatase 82 U/L (38-126); Blood Urea Nitrogen 14 mg/dl (7-17); Calcium 8.9 mg/dl (8.4-10.2); Carbon Dioxide 27 mmol/L (22-30); Chloride 104 mmol/L (98-107); Glucose 82 mg/dl (70-99); Potassium 4.1 mmol/L (3.5-5.1); Sodium 139 mmol/L (135-145); Total Bilirubin 0.6 mg/dl (0.2-1.3); Total Protein 5.8 g/dl (6.3-8.2); eGFR > 60.00
== END ==
LOC: HWLAB 10:47
PROVIDERS: ATTENDING PHYSICIAN Internal Medicine Hematology & Oncology; FAMILY PHYSICIAN Internal Medicine Geriatric Medicine
DX: C90.00 Multiple myeloma not having achieved remission (principal)
CPT/HCPCS: 36415; 80053; 85025

== ENCOUNTER → 2024-10-26 09:32 | Outpatient (REF) | payer OTHER, SELFPAY ==
[2024-10-26 12:06] LABS: % Basophils 2.2 % (0-2); % Eosinophils 3.8 % (0-6); % Immature Granulocytes 0.6 % (0-0.5); % Lymphocytes 9.2 % (20.5-51.1); % Monocytes 8.4 % (1.7-9.3); % Neutrophils 75.8 % (42.2-75.2); Absolute Basophils 0.2 10^3/uL (0-0.2); Absolute Eosinophils 0.3 10^3/uL (0-0.7); Absolute Immature Granulocytes 0.1 10^3/uL (0-0.05); Absolute Lymphocytes 0.8 10^3/uL (1.2-3.4); Absolute Monocytes 0.8 10^3/uL (0.1-0.6); Absolute Neutrophils 6.8 10^3/uL (1.4-6.5); Hematocrit 37.6 % (37.0-47.0); Hemoglobin 11.6 g/dL (12.0-16.0); Mean Corp Hgb Conc. 30.9 g/dL (33.0-37.0); Mean Corpuscular Hgb 28.3 pg (27.0-31.0); Mean Corpuscular Volume 91.7 fL (81.0-99.0); Mean Platelet Volume 11.6 fL (7.4-10.4); Nucleated Red Blood Cells % 0 %; Platelet Count 225 10^3/uL (130-400); Red Cell Dist. Width 13.3 % (11.5-14.5)
[2024-10-26 12:31] LABS: ALT (SGPT) 14 U/L (0-35); AST (SGOT) 18 U/L (14-36); Albumin 3.8 g/dl (3.5-5.0); Alkaline Phosphatase 83 U/L (38-126); Blood Urea Nitrogen 20 mg/dl (7-17); Calcium 8.9 mg/dl (8.4-10.2); Carbon Dioxide 26 mmol/L (22-30); Chloride 107 mmol/L (98-107); Glucose 71 mg/dl (70-99); Sodium 138 mmol/L (135-145); Total Bilirubin 0.5 mg/dl (0.2-1.3); Total Protein 5.9 g/dl (6.3-8.2); eGFR > 60.00
== END ==
LOC: HWLAB 09:32
PROVIDERS: ATTENDING PHYSICIAN Internal Medicine Hematology & Oncology; FAMILY PHYSICIAN Internal Medicine Geriatric Medicine
DX: C90.00 Multiple myeloma not having achieved remission (principal)
CPT/HCPCS: 36415; 80053; 85025

== ENCOUNTER → 2024-11-02 11:20 | Outpatient (REF) | payer OTHER, SELFPAY ==
[2024-11-02 12:47] LABS: % Basophils 1.7 % (0-2); % Immature Granulocytes 0.3 % (0-0.5); % Lymphocytes 13.2 % (20.5-51.1); % Monocytes 11.9 % (1.7-9.3); % Neutrophils 69.9 % (42.2-75.2); Absolute Basophils 0.1 10^3/uL (0-0.2); Absolute Eosinophils 0.2 10^3/uL (0-0.7); Absolute Lymphocytes 0.9 10^3/uL (1.2-3.4); Absolute Monocytes 0.8 10^3/uL (0.1-0.6); Absolute Neutrophils 4.9 10^3/uL (1.4-6.5); Hematocrit 34.9 % (37.0-47.0); Hemoglobin 11.1 g/dL (12.0-16.0); Mean Corp Hgb Conc. 31.8 g/dL (33.0-37.0); Mean Corpuscular Hgb 28.2 pg (27.0-31.0); Mean Corpuscular Volume 88.6 fL (81.0-99.0); Mean Platelet Volume 11.8 fL (7.4-10.4); Nucleated Red Blood Cells % 0 %; Platelet Count 203 10^3/uL (130-400); Red Blood Cell Count 3.94 10^6/uL (4.20-5.40); Red Cell Dist. Width 13.2 % (11.5-14.5)
[2024-11-02 13:12] LABS: ALT (SGPT) 15 U/L (0-35); AST (SGOT) 17 U/L (14-36); Alkaline Phosphatase 83 U/L (38-126); Blood Urea Nitrogen 16 mg/dl (7-17); Calcium 8.5 mg/dl (8.4-10.2); Carbon Dioxide 23 mmol/L (22-30); Chloride 107 mmol/L (98-107); Glucose 77 mg/dl (70-99); Sodium 140 mmol/L (135-145); Total Bilirubin 0.6 mg/dl (0.2-1.3); Total Protein 5.9 g/dl (6.3-8.2); eGFR > 60.00
== END ==
LOC: HWLAB 11:20
PROVIDERS: ATTENDING PHYSICIAN Internal Medicine Hematology & Oncology; FAMILY PHYSICIAN Internal Medicine Geriatric Medicine
DX: C90.00 Multiple myeloma not having achieved remission (principal)
CPT/HCPCS: 36415; 80053; 85025

== ENCOUNTER → 2024-11-09 10:47 | Outpatient (REF) | payer OTHER, SELFPAY ==
[2024-11-09 12:15] LABS: % Basophils 2.6 % (0-2); % Eosinophils 1.8 % (0-6); % Immature Granulocytes 0.5 % (0-0.5); % Lymphocytes 15.5 % (20.5-51.1); % Monocytes 12.8 % (1.7-9.3); % Neutrophils 66.8 % (42.2-75.2); Absolute Basophils 0.2 10^3/uL (0-0.2); Absolute Eosinophils 0.1 10^3/uL (0-0.7); Absolute Monocytes 0.8 10^3/uL (0.1-0.6); Absolute Neutrophils 4.2 10^3/uL (1.4-6.5); Hemoglobin 11.6 g/dL (12.0-16.0); Mean Corp Hgb Conc. 31.4 g/dL (33.0-37.0); Mean Corpuscular Hgb 27.9 pg (27.0-31.0); Mean Corpuscular Volume 88.9 fL (81.0-99.0); Mean Platelet Volume 11.4 fL (7.4-10.4); Nucleated Red Blood Cells % 0 %; Platelet Count 201 10^3/uL (130-400); Red Blood Cell Count 4.16 10^6/uL (4.20-5.40); Red Cell Dist. Width 13.2 % (11.5-14.5); White Blood Cell Count 6.3 10^3/uL (4.8-10.8)
[2024-11-09 12:57] LABS: ALT (SGPT) 13 U/L (0-35); AST (SGOT) 17 U/L (14-36); Albumin 4.1 g/dl (3.5-5.0); Alkaline Phosphatase 70 U/L (38-126); Blood Urea Nitrogen 16 mg/dl (7-17); Carbon Dioxide 25 mmol/L (22-30); Chloride 107 mmol/L (98-107); Glucose 62 mg/dl (70-99); Potassium 4.1 mmol/L (3.5-5.1); Sodium 140 mmol/L (135-145); Total Bilirubin 0.6 mg/dl (0.2-1.3); eGFR > 60.00
== END ==
LOC: HWLAB 10:47
PROVIDERS: ATTENDING PHYSICIAN Internal Medicine Hematology & Oncology; FAMILY PHYSICIAN Internal Medicine Geriatric Medicine; REFERRING PHYSICIAN Nurse Practitioner Adult Health
DX: C90.00 Multiple myeloma not having achieved remission (principal)
CPT/HCPCS: 36415; 80053; 82232; 82784; 83521; 84155; 84165; 85025; 86334

== ENCOUNTER → 2024-11-16 11:26 | Outpatient (REF) | payer OTHER, SELFPAY ==
[2024-11-16 15:17] LABS: % Eosinophils 3.3 % (0-6); % Immature Granulocytes 0.3 % (0-0.5); % Lymphocytes 7.6 % (20.5-51.1); % Monocytes 4.6 % (1.7-9.3); % Neutrophils 83.2 % (42.2-75.2); Absolute Basophils 0.1 10^3/uL (0-0.2); Absolute Eosinophils 0.3 10^3/uL (0-0.7); Absolute Lymphocytes 0.8 10^3/uL (1.2-3.4); Absolute Monocytes 0.5 10^3/uL (0.1-0.6); Absolute Neutrophils 8.3 10^3/uL (1.4-6.5); Hematocrit 36.7 % (37.0-47.0); Hemoglobin 11.6 g/dL (12.0-16.0); Mean Corp Hgb Conc. 31.6 g/dL (33.0-37.0); Mean Corpuscular Hgb 27.6 pg (27.0-31.0); Mean Corpuscular Volume 87.2 fL (81.0-99.0); Mean Platelet Volume 12.1 fL (7.4-10.4); Nucleated Red Blood Cells % 0 %; Platelet Count 226 10^3/uL (130-400); Red Blood Cell Count 4.21 10^6/uL (4.20-5.40); Red Cell Dist. Width 13.3 % (11.5-14.5)
[2024-11-16 15:27] LABS: ALT (SGPT) 12 U/L (0-35); AST (SGOT) 6 U/L (14-36); Albumin 4.2 g/dl (3.5-5.0); Alkaline Phosphatase < 20 U/L (38-126); Blood Urea Nitrogen 15 mg/dl (7-17); Calcium < 1.0 mg/dl (8.4-10.2); Carbon Dioxide 22 mmol/L (22-30); Chloride 104 mmol/L (98-107); Glucose 85 mg/dl (70-99); Potassium > 14.0 mmol/L (3.5-5.1); Sodium 137 mmol/L (135-145); Total Bilirubin 0.4 mg/dl (0.2-1.3); Total Protein 6.1 g/dl (6.3-8.2); eGFR > 60.00
== END ==
LOC: HWLAB 11:26
PROVIDERS: ATTENDING PHYSICIAN Internal Medicine Hematology & Oncology; FAMILY PHYSICIAN Internal Medicine Geriatric Medicine
DX: C90.00 Multiple myeloma not having achieved remission (principal)
CPT/HCPCS: 36415; 80053; 85025

== ENCOUNTER 2024-11-17 17:43 | Emergency (ER) | payer OTHER, SELFPAY ==
[2024-11-17 17:51] VITALS: BP 144/78
[2024-11-17 18:41] VITALS: BMI 19.1
[2024-11-17 18:47] VITALS: BP 105/64
[2024-11-17 18:51] LABS: % Basophils 1.3 % (0-2); % Immature Granulocytes 0.4 % (0-0.5); % Lymphocytes 9.8 % (20.5-51.1); % Monocytes 5.8 % (1.7-9.3); % Neutrophils 77.7 % (42.2-75.2); Absolute Basophils 0.1 10^3/uL (0-0.2); Absolute Eosinophils 0.4 10^3/uL (0-0.7); Absolute Lymphocytes 0.7 10^3/uL (1.2-3.4); Absolute Monocytes 0.4 10^3/uL (0.1-0.6); Absolute Neutrophils 5.5 10^3/uL (1.4-6.5); Hematocrit 35.2 % (37.0-47.0); Hemoglobin 11.1 g/dL (12.0-16.0); Mean Corp Hgb Conc. 31.5 g/dL (33.0-37.0); Mean Corpuscular Hgb 27.8 pg (27.0-31.0); Mean Corpuscular Volume 88.2 fL (81.0-99.0); Mean Platelet Volume 11.5 fL (7.4-10.4); Nucleated Red Blood Cells % 0 %; Platelet Count 233 10^3/uL (130-400); Red Blood Cell Count 3.99 10^6/uL (4.20-5.40); Red Cell Dist. Width 13.2 % (11.5-14.5); White Blood Cell Count 7.1 10^3/uL (4.8-10.8)
--- NOTE | 2024-11-17 18:53 | ED.GENMED ---
History of Present Illness
General
Chief Complaint: Abnormal Lab Value
Source: patient
Exam Limitations: none
Time Seen by Provider: 11/17/24 18:27
Nursing documentation reviewed up to this point in time: agreed with
History of Present Illness
History of Present Illness:
Patient is a 89-year-old female with history of multiple myeloma currently being followed by [facility] sent for abnormal blood work. Patient reports she was told her potassium was elevated from recent blood work. She has never had
issues with elevated potassium in the past. She has no complaints or symptoms.
Past History
Past History
ED Past Medical History: Hypercholesterolemia, Hypothyroidism and Other (Diverticulosis/diverticulitis, melanoma)
ED Past Surgical History: Other (hemorrhoidectomy)
Social History
Tobacco: Non-smoker
Alcohol: Occasional
Drug: None
Personal:
Living: with family
Review of Systems
Review of Systems
Allergies reviewed?: Yes
All Other Systems: ROS reviewed and negative except as documented in HPI and ROS
Constitutional: Reports no symptoms; Denies fever
Respiratory: Reports no symptoms
Cardiac: Reports no symptoms
ABD/GI: Reports no symptoms
Musculoskeletal: Reports no symptoms
Skin: Reports no symptoms
Neurological: Reports no symptoms
Psychiatric: Reports no symptoms
Phy Exam
General Physical Exam
General Presentation: no apparent distress
General age: appears stated age
General Skin: warm and dry
General Habitus: normal
General Mental: alert
Cardiovascular Exam
Cardiovascular Exam: regular rate/rhythm, no murmur and normal peripheral pulses
Pulmonary Exam
Pulmonary Exam: lungs clear and no respiratory distress
Neurological Exam
Neurological Exam: alert and oriented x3
Musculoskeletal Exam
Musculoskeletal Exam: full ROM
Skin Exam
Skin Exam: normal color and warm/dry
Psychiatric Exam
Psychiatric Exam: normal mood/affect
Course
Orders/Labs/Results
Orders:
Orders
11/17/24 18:33
Cardiac Monitoring- Treatment ONCE
IV Insert/Care/Rem.- Treatment PRN
11/17/24 18:34
Electrocardiogram (*1) Stat
Reason for Study: Abdominal Pain
EKG- Treatment ONCE
11/17/24 18:45
Complete Blood Count/With Diff Urgent
Comprehensive Metabolic Panel Urgent
Abnormal Lab Results
11/17/24
18:45
RBC 3.99 L 10^6/uL
(4.20-5.40)
Hgb 11.1 L g/dL
(12.0-16.0)
Hct 35.2 L %
(37.0-47.0)
MCHC 31.5 L g/dL
(33.0-37.0)
MPV 11.5 H fL
(7.4-10.4)
Absolute Lymphs (auto) 0.7 L 10^3/uL
(1.2-3.4)
Neutrophils % 77.7 H %
(42.2-75.2)
Lymphocytes % 9.8 L %
(20.5-51.1)
Total Protein 6.2 L g/dl
(6.3-8.2)
11/17/24 18:45
11/17/24 18:45
Vital Signs
Initial and Last Documented VS:
Initial Vital Signs
Temp Pulse Resp BP Pulse Ox
98.4 F 78 16 144/78 96
11/17/24 17:51 11/17/24 17:51 11/17/24 17:51 11/17/24 17:51 11/17/24 17:51
Last Documented Vital Signs
Temp Pulse Resp BP Pulse Ox
98.5 F 79 19 103/81 97
11/17/24 18:47 11/17/24 19:00 11/17/24 19:00 11/17/24 19:00 11/17/24 19:00
MDM/Problems Addressed
Differential Diagnosis Includes:
Not limited to lab recheck, previous lab error
MDM/Problems Addressed:
Patient is 4-an 84year-old female with no medical complaints sent for lab check. Her potassium on outpatient blood work was high. They report it was greater than 14. This is consistent w/ lab error. potassium is normal here : 4.1. Her kidney
function is normal. She has never had an abnormal potassium previously.
in addition her calcium was also abnormal on previous labs and her calcium is normal here today.
*Critical Care Note
Total Time (30-74mins, 75-104mins- exclusive of procedures): Not Applicable
ED Attending Note
-
Portions of this chart may have been created with voice recognition software.� Occasional wrong word or��sound alike� substitutions may have occurred due to the inherent limitations of voice recognition software.
Discharge Plan
Departure
Patient Disposition: Home (Routine Discharge)
Date of Disposition: 11/17/24
Time of Disposition: 19:28
Patient with high blood pressure during this ER visit?: Yes
Condition: Fair
Covid-19: Not Applicable
Discharge Problem:
encounter for lab check
Instructions: BLOOD PRESSURE
Prescriptions:
No Action
cholecalciferol (vitamin D3) [Vitamin D3] 1,000 UNIT capsule
2,000 unit PO DAILY
levothyroxine [Synthroid] 88 mcg Tablet
88 mcg PO DAILY
simvastatin [Zocor] 20 mg Tablet
20 mg PO HS
acyclovir 400 mg Tablet
400 mg PO BID
aspirin 81 mg Tablet,Delayed Release (Dr/Ec)
81 mg PO DAILY
docusate sodium 100 mg Capsule
100 mg PO HSPRN PRN (Reason: CONSTIPATION)
bortezomib [Velcade] 3.5 mg Recon Soln
3 mg IV FR
lenalidomide 10 mg Capsule
10 mg PO QPM
Patient Comments:
11/17/24: PATIENT TAKES FOR 21 DAYS AND HOLDS FOR 7 DAYS. LAST DOSE ON 11/16/24 WAS THE 10TH DOSE INTO HER 21 DAY CYCLE
sennosides-docusate sodium 8.6-50 mg tablet
2 tab PO HSPRN PRN (Reason: Constipation)
dexamethasone 4 mg tablet
40 mg PO FR
Patient Comments:
PATIENT TAKES BEFORE VELCADE INJECTION
Referrals:
Lawrence Huddleston MD [Family Provider] -
Activity Restrictions/Additional Instructions:
You were sent to the ER for blood work and your potassium is normal here 4.1
Follow-up with your doctor as scheduled return if any worsening of symptoms
Interventions
Interventions:
*Risk Screen - Suicide Last Done: 11/17/24 18:47
*General Assessment Last Done: 11/17/24 18:47
*Neglect/Abuse Screening Last Done: 11/17/24 18:47
*ED- Fall Risk Assessment Last Done: 11/17/24 18:47
*ED COVID-19 Vaccine History Last Done: 11/17/24 18:47
Discharge Date and Time
Print Language: MALTESE
[2024-11-17 19:00] VITALS: BP 103/81
[2024-11-17 19:08] LABS: ALT (SGPT) 13 U/L (0-35); AST (SGOT) 18 U/L (14-36); Albumin 4.3 g/dl (3.5-5.0); Alkaline Phosphatase 84 U/L (38-126); Blood Urea Nitrogen 17 mg/dl (7-17); Calcium 9.1 mg/dl (8.4-10.2); Carbon Dioxide 23 mmol/L (22-30); Chloride 106 mmol/L (98-107); Estimated Creatinine Clearance 51 ml/min; Glucose 86 mg/dl (70-99); Potassium 4.1 mmol/L (3.5-5.1); Sodium 137 mmol/L (135-145); Total Bilirubin 0.6 mg/dl (0.2-1.3); Total Protein 6.2 g/dl (6.3-8.2); eGFR > 60.00
== END 2024-11-17 19:54 | disposition home or self-care (01) ==
LOC: EMR 17:43
PROVIDERS: Nurse Practitioner; EMERGENCY PHYSICIAN Emergency Medicine; FAMILY PHYSICIAN Internal Medicine Geriatric Medicine
DX: Z00.00 Encounter for general adult medical examination without abnormal findings (principal); C90.00 Multiple myeloma not having achieved remission; E78.00 Pure hypercholesterolemia, unspecified; E03.9 Hypothyroidism, unspecified; Z85.820 Personal history of malignant melanoma of skin
CPT/HCPCS: 99284; 80053; 85025; 93005

== ENCOUNTER → 2024-11-24 11:53 | Outpatient (REF) | payer OTHER, SELFPAY ==
[2024-11-24 16:33] LABS: % Basophils 1.6 % (0-2); % Eosinophils 3.4 % (0-6); % Immature Granulocytes 0.5 % (0-0.5); % Lymphocytes 10.8 % (20.5-51.1); % Monocytes 11.2 % (1.7-9.3); % Neutrophils 72.5 % (42.2-75.2); Absolute Basophils 0.1 10^3/uL (0-0.2); Absolute Eosinophils 0.3 10^3/uL (0-0.7); Absolute Lymphocytes 0.9 10^3/uL (1.2-3.4); Absolute Monocytes 0.9 10^3/uL (0.1-0.6); Absolute Neutrophils 5.9 10^3/uL (1.4-6.5); Hematocrit 35.7 % (37.0-47.0); Hemoglobin 11.5 g/dL (12.0-16.0); Mean Corp Hgb Conc. 32.2 g/dL (33.0-37.0); Mean Corpuscular Hgb 27.7 pg (27.0-31.0); Nucleated Red Blood Cells % 0 %; Platelet Count 214 10^3/uL (130-400); Red Blood Cell Count 4.15 10^6/uL (4.20-5.40); Red Cell Dist. Width 13.8 % (11.5-14.5); White Blood Cell Count 8.1 10^3/uL (4.8-10.8)
[2024-11-24 16:42] LABS: ALT (SGPT) 14 U/L (0-35); AST (SGOT) 19 U/L (14-36); Alkaline Phosphatase 85 U/L (38-126); Blood Urea Nitrogen 16 mg/dl (7-17); Carbon Dioxide 26 mmol/L (22-30); Chloride 106 mmol/L (98-107); Glucose 78 mg/dl (70-99); Potassium 3.8 mmol/L (3.5-5.1); Sodium 139 mmol/L (135-145); Total Bilirubin 0.7 mg/dl (0.2-1.3); Total Protein 6.1 g/dl (6.3-8.2); eGFR > 60.00
[2024-11-24 16:47] LABS: Albumin 3.7 g/dl (3.5-5.0)
== END ==
LOC: HWLAB 11:53
PROVIDERS: ATTENDING PHYSICIAN Internal Medicine Hematology & Oncology; FAMILY PHYSICIAN Internal Medicine Geriatric Medicine
DX: C90.00 Multiple myeloma not having achieved remission (principal)
CPT/HCPCS: 36415; 80053; 85025

== ENCOUNTER → 2024-11-30 13:06 | Outpatient (REF) | payer OTHER, SELFPAY ==
[2024-11-30 16:34] LABS: % Basophils 1.5 % (0-2); % Eosinophils 4.9 % (0-6); % Immature Granulocytes 0.3 % (0-0.5); % Lymphocytes 14.8 % (20.5-51.1); % Monocytes 11.5 % (1.7-9.3); Absolute Basophils 0.1 10^3/uL (0-0.2); Absolute Eosinophils 0.3 10^3/uL (0-0.7); Absolute Monocytes 0.8 10^3/uL (0.1-0.6); Absolute Neutrophils 4.4 10^3/uL (1.4-6.5); Hematocrit 35.6 % (37.0-47.0); Hemoglobin 11.3 g/dL (12.0-16.0); Mean Corp Hgb Conc. 31.7 g/dL (33.0-37.0); Mean Corpuscular Hgb 27.6 pg (27.0-31.0); Mean Corpuscular Volume 86.8 fL (81.0-99.0); Mean Platelet Volume 12.1 fL (7.4-10.4); Nucleated Red Blood Cells % 0 %; Platelet Count 180 10^3/uL (130-400); Red Cell Dist. Width 13.9 % (11.5-14.5); White Blood Cell Count 6.5 10^3/uL (4.8-10.8)
[2024-11-30 16:49] LABS: ALT (SGPT) 15 U/L (0-35); AST (SGOT) 19 U/L (14-36); Albumin 3.5 g/dl (3.5-5.0); Alkaline Phosphatase 85 U/L (38-126); Blood Urea Nitrogen 18 mg/dl (7-17); Carbon Dioxide 27 mmol/L (22-30); Chloride 108 mmol/L (98-107); Glucose 75 mg/dl (70-99); Potassium 3.9 mmol/L (3.5-5.1); Sodium 139 mmol/L (135-145); Total Bilirubin 0.5 mg/dl (0.2-1.3); Total Protein 5.6 g/dl (6.3-8.2); eGFR > 60.00
== END ==
LOC: HWLAB 13:06
PROVIDERS: ATTENDING PHYSICIAN Internal Medicine Hematology & Oncology; FAMILY PHYSICIAN Internal Medicine Geriatric Medicine
DX: C90.00 Multiple myeloma not having achieved remission (principal)
CPT/HCPCS: 36415; 80053; 85025

== ENCOUNTER → 2024-12-02 15:27 | Outpatient (REF) | payer OTHER, SELFPAY | LOC: RAD 15:27 | PROVIDERS: ATTENDING PHYSICIAN Internal Medicine Geriatric Medicine; REFERRING PHYSICIAN Internal Medicine Hematology & Oncology | DX: E78.2 Mixed hyperlipidemia (principal); C79.51 Secondary malignant neoplasm of bone; E55.9 Vitamin D deficiency, unspecified; E03.8 Other specified hypothyroidism; M94.0 Chondrocostal junction syndrome [Tietze]; R10.32 Left lower quadrant pain; Z13.31 Encounter for screening for depression; R07.9 Chest pain, unspecified | CPT/HCPCS: 74177; Q9967 ==

== ENCOUNTER → 2024-12-07 12:51 | Outpatient (REF) | payer OTHER, SELFPAY ==
[2024-12-07 16:52] LABS: ALT (SGPT) 16 U/L (0-35); AST (SGOT) 18 U/L (14-36); Alkaline Phosphatase 75 U/L (38-126); Blood Urea Nitrogen 19 mg/dl (7-17); Calcium 9.2 mg/dl (8.4-10.2); Carbon Dioxide 27 mmol/L (22-30); Chloride 109 mmol/L (98-107); Glucose 84 mg/dl (70-99); Potassium 3.6 mmol/L (3.5-5.1); Sodium 143 mmol/L (135-145); Total Bilirubin 0.5 mg/dl (0.2-1.3); Total Protein 5.9 g/dl (6.3-8.2); eGFR > 60.00
[2024-12-07 16:58] LABS: % Basophils 1.4 % (0-2); % Eosinophils 2.6 % (0-6); % Immature Granulocytes 0.5 % (0-0.5); % Lymphocytes 12.8 % (20.5-51.1); % Monocytes 10.7 % (1.7-9.3); Absolute Basophils 0.1 10^3/uL (0-0.2); Absolute Eosinophils 0.2 10^3/uL (0-0.7); Absolute Lymphocytes 0.9 10^3/uL (1.2-3.4); Absolute Monocytes 0.7 10^3/uL (0.1-0.6); Absolute Neutrophils 4.8 10^3/uL (1.4-6.5); Hematocrit 38.1 % (37.0-47.0); Hemoglobin 11.8 g/dL (12.0-16.0); Mean Corpuscular Hgb 26.6 pg (27.0-31.0); Mean Platelet Volume 10.8 fL (7.4-10.4); Nucleated Red Blood Cells % 0 %; Platelet Count 232 10^3/uL (130-400); Red Blood Cell Count 4.43 10^6/uL (4.20-5.40); White Blood Cell Count 6.7 10^3/uL (4.8-10.8)
== END ==
LOC: HWLAB 12:51
PROVIDERS: ATTENDING PHYSICIAN Internal Medicine Hematology & Oncology; FAMILY PHYSICIAN Internal Medicine Geriatric Medicine; REFERRING PHYSICIAN Nurse Practitioner Adult Health
DX: C90.00 Multiple myeloma not having achieved remission (principal)
CPT/HCPCS: 36415; 80053; 82232; 82784; 83521; 84155; 84165; 85025; 86334

== ENCOUNTER → 2024-12-14 11:57 | Outpatient (REF) | payer OTHER, SELFPAY ==
[2024-12-14 15:42] LABS: ALT (SGPT) 14 U/L (0-35); AST (SGOT) 18 U/L (14-36); Albumin 4.1 g/dl (3.5-5.0); Alkaline Phosphatase 101 U/L (38-126); Blood Urea Nitrogen 15 mg/dl (7-17); Calcium 9.2 mg/dl (8.4-10.2); Carbon Dioxide 27 mmol/L (22-30); Chloride 108 mmol/L (98-107); Glucose 80 mg/dl (70-99); Potassium 4.2 mmol/L (3.5-5.1); Sodium 143 mmol/L (135-145); Total Bilirubin 0.5 mg/dl (0.2-1.3); Total Protein 6.1 g/dl (6.3-8.2); eGFR > 60.00
[2024-12-14 16:21] LABS: % Basophils 1.7 % (0-2); % Eosinophils 3.6 % (0-6); % Immature Granulocytes 0.3 % (0-0.5); % Lymphocytes 13.4 % (20.5-51.1); % Monocytes 5.9 % (1.7-9.3); % Neutrophils 75.1 % (42.2-75.2); Absolute Basophils 0.1 10^3/uL (0-0.2); Absolute Eosinophils 0.3 10^3/uL (0-0.7); Absolute Monocytes 0.4 10^3/uL (0.1-0.6); Absolute Neutrophils 5.4 10^3/uL (1.4-6.5); Hematocrit 38.4 % (37.0-47.0); Mean Corp Hgb Conc. 31.3 g/dL (33.0-37.0); Mean Corpuscular Hgb 26.7 pg (27.0-31.0); Mean Corpuscular Volume 85.5 fL (81.0-99.0); Mean Platelet Volume 12.5 fL (7.4-10.4); Nucleated Red Blood Cells % 0 %; Platelet Count 223 10^3/uL (130-400); Red Blood Cell Count 4.49 10^6/uL (4.20-5.40); Red Cell Dist. Width 14.5 % (11.5-14.5); White Blood Cell Count 7.1 10^3/uL (4.8-10.8)
== END ==
LOC: HWLAB 11:57
PROVIDERS: ATTENDING PHYSICIAN Internal Medicine Hematology & Oncology; FAMILY PHYSICIAN Internal Medicine Geriatric Medicine
DX: C90.00 Multiple myeloma not having achieved remission (principal)
CPT/HCPCS: 36415; 80053; 85025

== ENCOUNTER → 2024-12-21 10:45 | Outpatient (REF) | payer OTHER, SELFPAY ==
[2024-12-21 15:55] LABS: % Basophils 1.8 % (0-2); % Eosinophils 2.8 % (0-6); % Immature Granulocytes 0.2 % (0-0.5); % Neutrophils 72.2 % (42.2-75.2); Absolute Basophils 0.2 10^3/uL (0-0.2); Absolute Eosinophils 0.3 10^3/uL (0-0.7); Absolute Lymphocytes 1.1 10^3/uL (1.2-3.4); Absolute Neutrophils 6.4 10^3/uL (1.4-6.5); Hematocrit 37.3 % (37.0-47.0); Hemoglobin 11.7 g/dL (12.0-16.0); Mean Corp Hgb Conc. 31.4 g/dL (33.0-37.0); Mean Corpuscular Volume 85.9 fL (81.0-99.0); Mean Platelet Volume 11.1 fL (7.4-10.4); Nucleated Red Blood Cells % 0 %; Platelet Count 218 10^3/uL (130-400); Red Blood Cell Count 4.34 10^6/uL (4.20-5.40); Red Cell Dist. Width 14.6 % (11.5-14.5); White Blood Cell Count 8.9 10^3/uL (4.8-10.8)
[2024-12-21 16:11] LABS: ALT (SGPT) 13 U/L (0-35); AST (SGOT) 17 U/L (14-36); Albumin 3.5 g/dl (3.5-5.0); Alkaline Phosphatase 85 U/L (38-126); Blood Urea Nitrogen 19 mg/dl (7-17); Carbon Dioxide 29 mmol/L (22-30); Chloride 108 mmol/L (98-107); Glucose 79 mg/dl (70-99); Potassium 4.2 mmol/L (3.5-5.1); Sodium 142 mmol/L (135-145); Total Bilirubin 0.4 mg/dl (0.2-1.3); Total Protein 5.6 g/dl (6.3-8.2); eGFR > 60.00
== END ==
LOC: HWLAB 10:45
PROVIDERS: ATTENDING PHYSICIAN Internal Medicine Hematology & Oncology; FAMILY PHYSICIAN Internal Medicine Geriatric Medicine
DX: C90.00 Multiple myeloma not having achieved remission (principal)
CPT/HCPCS: 36415; 80053; 85025

== ENCOUNTER → 2025-01-04 11:19 | Outpatient (REF) | payer OTHER, SELFPAY ==
[2025-01-04 15:49] LABS: ALT (SGPT) 14 U/L (0-35); AST (SGOT) 19 U/L (14-36); Alkaline Phosphatase 80 U/L (38-126); Blood Urea Nitrogen 18 mg/dl (7-17); Calcium 9.1 mg/dl (8.4-10.2); Carbon Dioxide 25 mmol/L (22-30); Chloride 109 mmol/L (98-107); Glucose 86 mg/dl (70-99); Sodium 141 mmol/L (135-145); Total Bilirubin 0.7 mg/dl (0.2-1.3); eGFR > 60.00
[2025-01-04 15:51] LABS: % Basophils 1.9 % (0-2); % Eosinophils 3.2 % (0-6); % Immature Granulocytes 0.3 % (0-0.5); % Lymphocytes 13.3 % (20.5-51.1); % Monocytes 12.1 % (1.7-9.3); % Neutrophils 69.2 % (42.2-75.2); Absolute Basophils 0.1 10^3/uL (0-0.2); Absolute Eosinophils 0.2 10^3/uL (0-0.7); Absolute Monocytes 0.9 10^3/uL (0.1-0.6); Hematocrit 36.8 % (37.0-47.0); Hemoglobin 11.6 g/dL (12.0-16.0); Mean Corp Hgb Conc. 31.5 g/dL (33.0-37.0); Mean Corpuscular Hgb 27.1 pg (27.0-31.0); Mean Platelet Volume 10.5 fL (7.4-10.4); Nucleated Red Blood Cells % 0 %; Platelet Count 259 10^3/uL (130-400); Red Blood Cell Count 4.28 10^6/uL (4.20-5.40); Red Cell Dist. Width 15.9 % (11.5-14.5); White Blood Cell Count 7.2 10^3/uL (4.8-10.8)
[2025-01-07 07:05] LABS: Beta-2-Microglobulin 2.2 mg/L (<=3.0)
== END ==
LOC: HWLAB 11:19
PROVIDERS: ATTENDING PHYSICIAN Nurse Practitioner Adult Health; FAMILY PHYSICIAN Internal Medicine Geriatric Medicine; REFERRING PHYSICIAN Internal Medicine Hematology & Oncology
DX: C90.00 Multiple myeloma not having achieved remission (principal)
CPT/HCPCS: 36415; 80053; 82232; 82784; 83521; 84155; 84165; 85025; 86334

== ENCOUNTER → 2025-01-11 11:49 | Outpatient (REF) | payer OTHER, SELFPAY ==
[2025-01-11 16:06] LABS: % Basophils 1.4 % (0-2); % Eosinophils 3.7 % (0-6); % Immature Granulocytes 0.3 % (0-0.5); % Lymphocytes 15.3 % (20.5-51.1); % Neutrophils 72.3 % (42.2-75.2); Absolute Basophils 0.1 10^3/uL (0-0.2); Absolute Eosinophils 0.2 10^3/uL (0-0.7); Absolute Monocytes 0.4 10^3/uL (0.1-0.6); Absolute Neutrophils 4.5 10^3/uL (1.4-6.5); Hematocrit 38.1 % (37.0-47.0); Hemoglobin 12.2 g/dL (12.0-16.0); Mean Corpuscular Hgb 27.1 pg (27.0-31.0); Mean Corpuscular Volume 84.7 fL (81.0-99.0); Nucleated Red Blood Cells % 0 %; Platelet Count 266 10^3/uL (130-400); Red Cell Dist. Width 16.3 % (11.5-14.5); White Blood Cell Count 6.3 10^3/uL (4.8-10.8)
[2025-01-11 16:13] LABS: ALT (SGPT) 13 U/L (0-35); AST (SGOT) 17 U/L (14-36); Albumin 4.2 g/dl (3.5-5.0); Alkaline Phosphatase 86 U/L (38-126); Blood Urea Nitrogen 19 mg/dl (7-17); Calcium 8.9 mg/dl (8.4-10.2); Carbon Dioxide 24 mmol/L (22-30); Chloride 107 mmol/L (98-107); Glucose 87 mg/dl (70-99); Potassium 4.1 mmol/L (3.5-5.1); Sodium 141 mmol/L (135-145); Total Bilirubin 0.7 mg/dl (0.2-1.3); Total Protein 6.1 g/dl (6.3-8.2); eGFR > 60.00
== END ==
LOC: HWLAB 11:49
PROVIDERS: ATTENDING PHYSICIAN Internal Medicine Hematology & Oncology; FAMILY PHYSICIAN Internal Medicine Geriatric Medicine
DX: C90.00 Multiple myeloma not having achieved remission (principal)
CPT/HCPCS: 36415; 80053; 85025

== ENCOUNTER → 2025-01-18 10:02 | Outpatient (REF) | payer OTHER, SELFPAY ==
[2025-01-18 16:46] LABS: % Eosinophils 2.4 % (0-6); % Immature Granulocytes 0.3 % (0-0.5); % Lymphocytes 9.1 % (20.5-51.1); % Neutrophils 77.2 % (42.2-75.2); Absolute Basophils 0.1 10^3/uL (0-0.2); Absolute Eosinophils 0.2 10^3/uL (0-0.7); Absolute Lymphocytes 0.7 10^3/uL (1.2-3.4); Absolute Monocytes 0.8 10^3/uL (0.1-0.6); Absolute Neutrophils 6.1 10^3/uL (1.4-6.5); Hematocrit 37.3 % (37.0-47.0); Hemoglobin 11.8 g/dL (12.0-16.0); Mean Corp Hgb Conc. 31.6 g/dL (33.0-37.0); Mean Corpuscular Hgb 27.1 pg (27.0-31.0); Mean Corpuscular Volume 85.6 fL (81.0-99.0); Mean Platelet Volume 12.2 fL (7.4-10.4); Nucleated Red Blood Cells % 0 %; Platelet Count 216 10^3/uL (130-400); Red Blood Cell Count 4.36 10^6/uL (4.20-5.40); Red Cell Dist. Width 16.4 % (11.5-14.5); White Blood Cell Count 7.9 10^3/uL (4.8-10.8)
[2025-01-18 16:58] LABS: ALT (SGPT) 14 U/L (0-35); AST (SGOT) 17 U/L (14-36); Albumin 3.5 g/dl (3.5-5.0); Alkaline Phosphatase 65 U/L (38-126); Blood Urea Nitrogen 15 mg/dl (7-17); Calcium 8.9 mg/dl (8.4-10.2); Carbon Dioxide 29 mmol/L (22-30); Chloride 108 mmol/L (98-107); Glucose 83 mg/dl (70-99); Sodium 141 mmol/L (135-145); Total Bilirubin 0.6 mg/dl (0.2-1.3); Total Protein 5.5 g/dl (6.3-8.2); eGFR > 60.00
== END ==
LOC: HWLAB 10:02
PROVIDERS: ATTENDING PHYSICIAN Internal Medicine Hematology & Oncology; FAMILY PHYSICIAN Internal Medicine Geriatric Medicine
DX: C90.00 Multiple myeloma not having achieved remission (principal)
CPT/HCPCS: 36415; 80053; 85025

== ENCOUNTER → 2025-01-25 13:00 | Outpatient (REF) | payer OTHER, SELFPAY ==
[2025-01-25 14:01] LABS: % Basophils 0.6 % (0-2); % Immature Granulocytes 0.4 % (0-0.5); % Lymphocytes 14.6 % (20.5-51.1); % Monocytes 8.3 % (1.7-9.3); % Neutrophils 71.1 % (42.2-75.2); Absolute Eosinophils 0.4 10^3/uL (0-0.7); Absolute Monocytes 0.6 10^3/uL (0.1-0.6); Absolute Neutrophils 5.1 10^3/uL (1.4-6.5); Hematocrit 35.8 % (37.0-47.0); Hemoglobin 11.3 g/dL (12.0-16.0); Mean Corp Hgb Conc. 31.6 g/dL (33.0-37.0); Mean Corpuscular Hgb 27.2 pg (27.0-31.0); Mean Corpuscular Volume 86.1 fL (81.0-99.0); Mean Platelet Volume 11.9 fL (7.4-10.4); Nucleated Red Blood Cells % 0 %; Platelet Count 161 10^3/uL (130-400); Red Blood Cell Count 4.16 10^6/uL (4.20-5.40); White Blood Cell Count 7.1 10^3/uL (4.8-10.8)
[2025-01-25 14:34] LABS: ALT (SGPT) 21 U/L (0-35); AST (SGOT) 20 U/L (14-36); Albumin 3.8 g/dl (3.5-5.0); Alkaline Phosphatase 73 U/L (38-126); Blood Urea Nitrogen 16 mg/dl (7-17); Calcium 8.7 mg/dl (8.4-10.2); Carbon Dioxide 24 mmol/L (22-30); Chloride 112 mmol/L (98-107); Glucose 90 mg/dl (70-99); Potassium 3.7 mmol/L (3.5-5.1); Sodium 140 mmol/L (135-145); Total Bilirubin 0.6 mg/dl (0.2-1.3); Total Protein 5.8 g/dl (6.3-8.2); eGFR > 60.00
== END ==
LOC: RAD 13:00
PROVIDERS: ATTENDING PHYSICIAN Internal Medicine Hematology & Oncology; FAMILY PHYSICIAN Nurse Practitioner Family
DX: R05.1 Acute cough (principal); R09.89 Other specified symptoms and signs involving the circulatory and respiratory systems; C90.00 Multiple myeloma not having achieved remission
CPT/HCPCS: 36415; 71046; 80053; 85025

== ENCOUNTER → 2025-02-01 11:58 | Outpatient (REF) | payer OTHER, SELFPAY ==
[2025-02-01 15:50] LABS: % Basophils 1.5 % (0-2); % Immature Granulocytes 0.6 % (0-0.5); % Lymphocytes 16.1 % (20.5-51.1); % Monocytes 9.5 % (1.7-9.3); % Neutrophils 71.3 % (42.2-75.2); Absolute Basophils 0.1 10^3/uL (0-0.2); Absolute Eosinophils 0.1 10^3/uL (0-0.7); Absolute Lymphocytes 1.2 10^3/uL (1.2-3.4); Absolute Monocytes 0.7 10^3/uL (0.1-0.6); Absolute Neutrophils 5.2 10^3/uL (1.4-6.5); Hematocrit 36.7 % (37.0-47.0); Hemoglobin 11.4 g/dL (12.0-16.0); Mean Corp Hgb Conc. 31.1 g/dL (33.0-37.0); Mean Corpuscular Hgb 26.9 pg (27.0-31.0); Mean Corpuscular Volume 86.6 fL (81.0-99.0); Mean Platelet Volume 11.2 fL (7.4-10.4); Nucleated Red Blood Cells % 0 %; Platelet Count 343 10^3/uL (130-400); Red Blood Cell Count 4.24 10^6/uL (4.20-5.40); Red Cell Dist. Width 17.2 % (11.5-14.5); White Blood Cell Count 7.3 10^3/uL (4.8-10.8)
[2025-02-01 16:03] LABS: ALT (SGPT) 21 U/L (0-35); AST (SGOT) 23 U/L (14-36); Albumin 3.9 g/dl (3.5-5.0); Alkaline Phosphatase 90 U/L (38-126); Blood Urea Nitrogen 18 mg/dl (7-17); Calcium 8.8 mg/dl (8.4-10.2); Carbon Dioxide 25 mmol/L (22-30); Chloride 111 mmol/L (98-107); Glucose 85 mg/dl (70-99); Potassium 4.1 mmol/L (3.5-5.1); Sodium 141 mmol/L (135-145); Total Bilirubin 0.5 mg/dl (0.2-1.3); eGFR > 60.00
[2025-02-04 00:04] LABS: Beta-2-Microglobulin 2.1 mg/L (<=3.0)
== END ==
LOC: HWLAB 11:58
PROVIDERS: ATTENDING PHYSICIAN Internal Medicine Hematology & Oncology; FAMILY PHYSICIAN Internal Medicine Geriatric Medicine; REFERRING PHYSICIAN Nurse Practitioner Adult Health
DX: C90.00 Multiple myeloma not having achieved remission (principal)
CPT/HCPCS: 36415; 80053; 82232; 82784; 83521; 84155; 84165; 85025; 86334

== ENCOUNTER → 2025-02-09 10:04 | Outpatient (REF) | payer OTHER, SELFPAY ==
[2025-02-09 16:46] LABS: % Eosinophils 4.5 % (0-6); % Immature Granulocytes 0.6 % (0-0.5); % Lymphocytes 9.5 % (20.5-51.1); % Monocytes 3.9 % (1.7-9.3); % Neutrophils 80.5 % (42.2-75.2); Absolute Basophils 0.1 10^3/uL (0-0.2); Absolute Eosinophils 0.3 10^3/uL (0-0.7); Absolute Lymphocytes 0.7 10^3/uL (1.2-3.4); Absolute Monocytes 0.3 10^3/uL (0.1-0.6); Absolute Neutrophils 5.8 10^3/uL (1.4-6.5); Hematocrit 35.5 % (37.0-47.0); Hemoglobin 11.2 g/dL (12.0-16.0); Mean Corp Hgb Conc. 31.5 g/dL (33.0-37.0); Mean Corpuscular Hgb 28.1 pg (27.0-31.0); Mean Platelet Volume 11.7 fL (7.4-10.4); Nucleated Red Blood Cells % 0 %; Platelet Count 245 10^3/uL (130-400); Red Blood Cell Count 3.99 10^6/uL (4.20-5.40); White Blood Cell Count 7.2 10^3/uL (4.8-10.8)
[2025-02-09 17:43] LABS: ALT (SGPT) 14 U/L (0-35); AST (SGOT) 17 U/L (14-36); Albumin 3.7 g/dl (3.5-5.0); Alkaline Phosphatase 75 U/L (38-126); Blood Urea Nitrogen 16 mg/dl (7-17); Calcium 9.1 mg/dl (8.4-10.2); Carbon Dioxide 28 mmol/L (22-30); Chloride 111 mmol/L (98-107); Glucose 85 mg/dl (70-99); Sodium 142 mmol/L (135-145); Total Bilirubin 0.5 mg/dl (0.2-1.3); Total Protein 5.9 g/dl (6.3-8.2); eGFR > 60.00
== END ==
LOC: HWLAB 10:04
PROVIDERS: ATTENDING PHYSICIAN Internal Medicine Hematology & Oncology; FAMILY PHYSICIAN Internal Medicine Geriatric Medicine
DX: C90.00 Multiple myeloma not having achieved remission (principal)
CPT/HCPCS: 36415; 80053; 85025

== ENCOUNTER → 2025-02-15 11:33 | Outpatient (REF) | payer OTHER, SELFPAY ==
[2025-02-15 15:43] LABS: % Basophils 1.3 % (0-2); % Immature Granulocytes 0.4 % (0-0.5); % Lymphocytes 15.1 % (20.5-51.1); % Monocytes 8.9 % (1.7-9.3); % Neutrophils 70.3 % (42.2-75.2); Absolute Basophils 0.1 10^3/uL (0-0.2); Absolute Eosinophils 0.3 10^3/uL (0-0.7); Absolute Lymphocytes 1.1 10^3/uL (1.2-3.4); Absolute Monocytes 0.6 10^3/uL (0.1-0.6); Hematocrit 34.9 % (37.0-47.0); Hemoglobin 11.3 g/dL (12.0-16.0); Mean Corp Hgb Conc. 32.4 g/dL (33.0-37.0); Mean Corpuscular Hgb 28.7 pg (27.0-31.0); Mean Corpuscular Volume 88.6 fL (81.0-99.0); Mean Platelet Volume 11.6 fL (7.4-10.4); Nucleated Red Blood Cells % 0 %; Platelet Count 223 10^3/uL (130-400); Red Blood Cell Count 3.94 10^6/uL (4.20-5.40); Red Cell Dist. Width 17.5 % (11.5-14.5); White Blood Cell Count 7.1 10^3/uL (4.8-10.8)
[2025-02-15 16:01] LABS: ALT (SGPT) 13 U/L (0-35); AST (SGOT) 17 U/L (14-36); Albumin 3.7 g/dl (3.5-5.0); Alkaline Phosphatase 87 U/L (38-126); Blood Urea Nitrogen 16 mg/dl (7-17); Calcium 8.5 mg/dl (8.4-10.2); Carbon Dioxide 25 mmol/L (22-30); Chloride 111 mmol/L (98-107); Glucose 93 mg/dl (70-99); Potassium 3.8 mmol/L (3.5-5.1); Sodium 142 mmol/L (135-145); Total Bilirubin 0.5 mg/dl (0.2-1.3); Total Protein 5.9 g/dl (6.3-8.2); eGFR > 60.00
== END ==
LOC: HWLAB 11:33
PROVIDERS: ATTENDING PHYSICIAN Internal Medicine Hematology & Oncology; FAMILY PHYSICIAN Internal Medicine Geriatric Medicine
DX: C90.00 Multiple myeloma not having achieved remission (principal)
CPT/HCPCS: 36415; 80053; 85025

== ENCOUNTER → 2025-05-25 10:36 | Outpatient (REF) | payer OTHER, SELFPAY ==
[2025-05-25 12:33] LABS: Hematocrit 39.4 % (37.0-47.0); Hemoglobin 12.5 g/dL (12.0-16.0); Mean Corp Hgb Conc. 31.7 g/dL (33.0-37.0); Mean Corpuscular Volume 88.3 fL (81.0-99.0); Nucleated Red Blood Cells % 0 %; Platelet Count 190 10^3/uL (130-400); Red Cell Dist. Width 15.6 % (11.5-14.5)
[2025-05-25 13:21] LABS: ALT (SGPT) 15 U/L (0-35); AST (SGOT) 18 U/L (14-36); Albumin 4.1 g/dl (3.5-5.0); Alkaline Phosphatase 79 U/L (38-126); Blood Urea Nitrogen 17 mg/dl (7-17); Calcium 9.0 mg/dl (8.4-10.2); Carbon Dioxide 25 mmol/L (22-30); Chloride 109 mmol/L (98-107); Glucose 83 mg/dl (70-99); Potassium 4.0 mmol/L (3.5-5.1); Sodium 139 mmol/L (135-145); Total Protein 6.4 g/dl (6.3-8.2); eGFR > 60.00
== END ==
LOC: HWLAB 10:36
PROVIDERS: ATTENDING PHYSICIAN Internal Medicine Hematology & Oncology; FAMILY PHYSICIAN Internal Medicine Geriatric Medicine
DX: C90.00 Multiple myeloma not having achieved remission (principal); R22.43 Localized swelling, mass and lump, lower limb, bilateral
CPT/HCPCS: 36415; 80053; 82784; 83521; 84155; 84165; 85025; 86334

== ENCOUNTER → 2025-06-01 10:36 | Outpatient (REF) | payer OTHER, SELFPAY ==
[2025-06-01 12:17] LABS: Hematocrit 39.7 % (37.0-47.0); Hemoglobin 12.2 g/dL (12.0-16.0); Mean Corp Hgb Conc. 30.7 g/dL (33.0-37.0); Mean Corpuscular Volume 88.2 fL (81.0-99.0); Nucleated Red Blood Cells % 0 %; Platelet Count 214 10^3/uL (130-400); Red Cell Dist. Width 15.6 % (11.5-14.5)
[2025-06-01 13:52] LABS: ALT (SGPT) 16 U/L (0-35); AST (SGOT) 19 U/L (14-36); Albumin 4.0 g/dl (3.5-5.0); Alkaline Phosphatase 79 U/L (38-126); Blood Urea Nitrogen 19 mg/dl (7-17); Calcium 9.8 mg/dl (8.4-10.2); Carbon Dioxide 28 mmol/L (22-30); Chloride 108 mmol/L (98-107); Glucose 83 mg/dl (70-99); Potassium 3.9 mmol/L (3.5-5.1); Sodium 140 mmol/L (135-145); Total Protein 6.4 g/dl (6.3-8.2); eGFR 55.21
== END ==
LOC: HWLAB 10:36
PROVIDERS: ATTENDING PHYSICIAN Internal Medicine Hematology & Oncology; FAMILY PHYSICIAN Internal Medicine Geriatric Medicine
DX: C90.00 Multiple myeloma not having achieved remission (principal); R22.43 Localized swelling, mass and lump, lower limb, bilateral
CPT/HCPCS: 36415; 80053; 85025

== ENCOUNTER → 2025-06-08 11:18 | Outpatient (REF) | payer OTHER, SELFPAY ==
[2025-06-08 16:13] LABS: Hematocrit 39.0 % (37.0-47.0); Hemoglobin 12.4 g/dL (12.0-16.0); Mean Corp Hgb Conc. 31.8 g/dL (33.0-37.0); Mean Corpuscular Volume 89.4 fL (81.0-99.0); Nucleated Red Blood Cells % 0 %; Platelet Count 236 10^3/uL (130-400); Red Cell Dist. Width 15.6 % (11.5-14.5)
[2025-06-08 16:19] LABS: ALT (SGPT) 16 U/L (0-35); AST (SGOT) 17 U/L (14-36); Albumin 4.1 g/dl (3.5-5.0); Alkaline Phosphatase 70 U/L (38-126); Blood Urea Nitrogen 14 mg/dl (7-17); Calcium 9.5 mg/dl (8.4-10.2); Carbon Dioxide 27 mmol/L (22-30); Chloride 106 mmol/L (98-107); Glucose 89 mg/dl (70-99); Potassium 4.2 mmol/L (3.5-5.1); Sodium 138 mmol/L (135-145); Total Protein 6.6 g/dl (6.3-8.2); eGFR > 60.00
== END ==
LOC: HWLAB 11:18
PROVIDERS: ATTENDING PHYSICIAN Internal Medicine Hematology & Oncology; FAMILY PHYSICIAN Internal Medicine Geriatric Medicine
DX: C90.00 Multiple myeloma not having achieved remission (principal); R22.43 Localized swelling, mass and lump, lower limb, bilateral
CPT/HCPCS: 36415; 80053; 85025

== ENCOUNTER → 2025-06-15 10:23 | Outpatient (REF) | payer OTHER, SELFPAY ==
[2025-06-15 13:06] LABS: Hematocrit 39.7 % (37.0-47.0); Hemoglobin 12.3 g/dL (12.0-16.0); Mean Corp Hgb Conc. 31.0 g/dL (33.0-37.0); Mean Corpuscular Volume 88.2 fL (81.0-99.0); Nucleated Red Blood Cells % 0 %; Platelet Count 209 10^3/uL (130-400); Red Cell Dist. Width 15.6 % (11.5-14.5)
[2025-06-15 15:25] LABS: ALT (SGPT) 15 U/L (0-35); AST (SGOT) 16 U/L (14-36); Albumin 4.1 g/dl (3.5-5.0); Alkaline Phosphatase 67 U/L (38-126); Blood Urea Nitrogen 17 mg/dl (7-17); Calcium 8.9 mg/dl (8.4-10.2); Carbon Dioxide 27 mmol/L (22-30); Chloride 106 mmol/L (98-107); Glucose 75 mg/dl (70-99); Potassium 4.0 mmol/L (3.5-5.1); Sodium 138 mmol/L (135-145); Total Protein 6.3 g/dl (6.3-8.2); eGFR > 60.00
== END ==
LOC: HWLAB 10:23
PROVIDERS: ATTENDING PHYSICIAN Internal Medicine Hematology & Oncology; FAMILY PHYSICIAN Internal Medicine Geriatric Medicine
DX: C90.00 Multiple myeloma not having achieved remission (principal); R22.43 Localized swelling, mass and lump, lower limb, bilateral
CPT/HCPCS: 36415; 80053; 85025

== ENCOUNTER → 2025-06-21 12:25 | Outpatient (REF) | payer OTHER, SELFPAY ==
[2025-06-21 16:05] LABS: Hematocrit 39.1 % (37.0-47.0); Hemoglobin 12.4 g/dL (12.0-16.0); Mean Corp Hgb Conc. 31.7 g/dL (33.0-37.0); Mean Corpuscular Volume 89.3 fL (81.0-99.0); Nucleated Red Blood Cells % 0 %; Platelet Count 181 10^3/uL (130-400); Red Cell Dist. Width 15.9 % (11.5-14.5)
[2025-06-21 16:13] LABS: ALT (SGPT) 16 U/L (0-35); AST (SGOT) 17 U/L (14-36); Albumin 3.9 g/dl (3.5-5.0); Alkaline Phosphatase 70 U/L (38-126); Blood Urea Nitrogen 15 mg/dl (7-17); Calcium 9.1 mg/dl (8.4-10.2); Carbon Dioxide 27 mmol/L (22-30); Chloride 107 mmol/L (98-107); Glucose 70 mg/dl (70-99); Potassium 3.5 mmol/L (3.5-5.1); Sodium 139 mmol/L (135-145); Total Protein 6.2 g/dl (6.3-8.2); eGFR > 60.00
== END ==
LOC: HWLAB 12:25
PROVIDERS: ATTENDING PHYSICIAN Internal Medicine Hematology & Oncology; FAMILY PHYSICIAN Internal Medicine Geriatric Medicine
DX: C90.00 Multiple myeloma not having achieved remission (principal); R22.43 Localized swelling, mass and lump, lower limb, bilateral
CPT/HCPCS: 36415; 80053; 82784; 83521; 84155; 84165; 85025; 86334

== ENCOUNTER → 2025-06-28 11:36 | Outpatient (REF) | payer OTHER, SELFPAY ==
[2025-06-28 16:03] LABS: Hematocrit 36.7 % (37.0-47.0); Hemoglobin 11.7 g/dL (12.0-16.0); Mean Corp Hgb Conc. 31.9 g/dL (33.0-37.0); Mean Corpuscular Volume 87.4 fL (81.0-99.0); Nucleated Red Blood Cells % 0 %; Platelet Count 189 10^3/uL (130-400); Red Cell Dist. Width 16.1 % (11.5-14.5)
[2025-06-28 16:11] LABS: ALT (SGPT) 16 U/L (0-35); AST (SGOT) 18 U/L (14-36); Albumin 3.8 g/dl (3.5-5.0); Alkaline Phosphatase 70 U/L (38-126); Blood Urea Nitrogen 19 mg/dl (7-17); Calcium 8.9 mg/dl (8.4-10.2); Carbon Dioxide 26 mmol/L (22-30); Chloride 108 mmol/L (98-107); Glucose 90 mg/dl (70-99); Potassium 3.9 mmol/L (3.5-5.1); Sodium 139 mmol/L (135-145); Total Protein 6.1 g/dl (6.3-8.2); eGFR > 60.00
== END ==
LOC: HWLAB 11:36
PROVIDERS: ATTENDING PHYSICIAN Internal Medicine Hematology & Oncology; FAMILY PHYSICIAN Internal Medicine Geriatric Medicine
DX: C90.00 Multiple myeloma not having achieved remission (principal); R22.43 Localized swelling, mass and lump, lower limb, bilateral
CPT/HCPCS: 36415; 80053; 85025

== ENCOUNTER → 2025-07-01 08:07 | Outpatient (REF) | payer OTHER, SELFPAY | LOC: WOUND 08:07 | PROVIDERS: ATTENDING PHYSICIAN Surgery; FAMILY PHYSICIAN Internal Medicine Geriatric Medicine | DX: L97.213 Non-pressure chronic ulcer of right calf with necrosis of muscle (principal); C90.00 Multiple myeloma not having achieved remission; C79.51 Secondary malignant neoplasm of bone | CPT/HCPCS: 99203 ==

== ENCOUNTER → 2025-07-06 10:41 | Outpatient (REF) | payer OTHER, SELFPAY ==
[2025-07-06 12:20] LABS: Hematocrit 37.4 % (37.0-47.0); Hemoglobin 12.0 g/dL (12.0-16.0); Mean Corp Hgb Conc. 32.1 g/dL (33.0-37.0); Mean Corpuscular Volume 89.3 fL (81.0-99.0); Nucleated Red Blood Cells % 0 %; Platelet Count 243 10^3/uL (130-400); Red Cell Dist. Width 15.9 % (11.5-14.5)
[2025-07-06 12:35] LABS: ALT (SGPT) 18 U/L (0-35); AST (SGOT) 19 U/L (14-36); Albumin 4.0 g/dl (3.5-5.0); Alkaline Phosphatase 68 U/L (38-126); Blood Urea Nitrogen 16 mg/dl (7-17); Calcium 9.4 mg/dl (8.4-10.2); Carbon Dioxide 27 mmol/L (22-30); Chloride 106 mmol/L (98-107); Glucose 86 mg/dl (70-99); Potassium 4.2 mmol/L (3.5-5.1); Sodium 139 mmol/L (135-145); Total Protein 6.3 g/dl (6.3-8.2); eGFR > 60.00
== END ==
LOC: HWLAB 10:41
PROVIDERS: ATTENDING PHYSICIAN Internal Medicine Hematology & Oncology; FAMILY PHYSICIAN Internal Medicine Geriatric Medicine
DX: C90.00 Multiple myeloma not having achieved remission (principal); R22.43 Localized swelling, mass and lump, lower limb, bilateral
CPT/HCPCS: 36415; 80053; 85025

== ENCOUNTER → 2025-07-13 10:51 | Outpatient (REF) | payer OTHER, SELFPAY ==
[2025-07-13 12:13] LABS: Hematocrit 38.3 % (37.0-47.0); Hemoglobin 11.8 g/dL (12.0-16.0); Mean Corp Hgb Conc. 30.8 g/dL (33.0-37.0); Mean Corpuscular Volume 89.5 fL (81.0-99.0); Nucleated Red Blood Cells % 0 %; Platelet Count 217 10^3/uL (130-400); Red Cell Dist. Width 16.0 % (11.5-14.5)
[2025-07-13 13:05] LABS: ALT (SGPT) 19 U/L (0-35); AST (SGOT) 19 U/L (14-36); Albumin 4.1 g/dl (3.5-5.0); Alkaline Phosphatase 74 U/L (38-126); Blood Urea Nitrogen 13 mg/dl (7-17); Calcium 8.8 mg/dl (8.4-10.2); Carbon Dioxide 27 mmol/L (22-30); Chloride 105 mmol/L (98-107); Glucose 85 mg/dl (70-99); Potassium 3.9 mmol/L (3.5-5.1); Sodium 139 mmol/L (135-145); Total Protein 6.3 g/dl (6.3-8.2); eGFR > 60.00
== END ==
LOC: HWLAB 10:51
PROVIDERS: ATTENDING PHYSICIAN Internal Medicine Hematology & Oncology; FAMILY PHYSICIAN Internal Medicine Geriatric Medicine
DX: C90.00 Multiple myeloma not having achieved remission (principal); R22.43 Localized swelling, mass and lump, lower limb, bilateral
CPT/HCPCS: 36415; 80053; 85025

== ENCOUNTER → 2025-07-20 11:05 | Outpatient (REF) | payer OTHER, SELFPAY ==
[2025-07-20 16:27] LABS: Hematocrit 40.3 % (37.0-47.0); Hemoglobin 12.3 g/dL (12.0-16.0); Mean Corp Hgb Conc. 30.5 g/dL (33.0-37.0); Mean Corpuscular Volume 91.6 fL (81.0-99.0); Nucleated Red Blood Cells % 0 %; Platelet Count 219 10^3/uL (130-400); Red Cell Dist. Width 15.8 % (11.5-14.5)
[2025-07-20 17:15] LABS: ALT (SGPT) 17 U/L (0-35); AST (SGOT) 18 U/L (14-36); Albumin 4.2 g/dl (3.5-5.0); Alkaline Phosphatase 77 U/L (38-126); Blood Urea Nitrogen 16 mg/dl (7-17); Calcium 9.6 mg/dl (8.4-10.2); Carbon Dioxide 26 mmol/L (22-30); Chloride 104 mmol/L (98-107); Glucose 84 mg/dl (70-99); Potassium 3.9 mmol/L (3.5-5.1); Sodium 137 mmol/L (135-145); Total Protein 6.7 g/dl (6.3-8.2); eGFR > 60.00
== END ==
LOC: HWLAB 11:05
PROVIDERS: ATTENDING PHYSICIAN Internal Medicine Hematology & Oncology; FAMILY PHYSICIAN Internal Medicine Geriatric Medicine
DX: C90.00 Multiple myeloma not having achieved remission (principal); R22.43 Localized swelling, mass and lump, lower limb, bilateral
CPT/HCPCS: 36415; 80053; 85025

== ENCOUNTER → 2025-07-25 11:46 | Outpatient (REF) | payer OTHER, SELFPAY ==
[2025-07-25 15:41] LABS: Hematocrit 40.4 % (37.0-47.0); Hemoglobin 12.3 g/dL (12.0-16.0); Mean Corp Hgb Conc. 30.4 g/dL (33.0-37.0); Mean Corpuscular Volume 91.6 fL (81.0-99.0); Nucleated Red Blood Cells % 0 %; Platelet Count 237 10^3/uL (130-400); Red Cell Dist. Width 16.0 % (11.5-14.5)
[2025-07-25 15:47] LABS: ALT (SGPT) 16 U/L (0-35); AST (SGOT) 19 U/L (14-36); Albumin 4.0 g/dl (3.5-5.0); Alkaline Phosphatase 77 U/L (38-126); Blood Urea Nitrogen 15 mg/dl (7-17); Calcium 9.1 mg/dl (8.4-10.2); Carbon Dioxide 27 mmol/L (22-30); Chloride 106 mmol/L (98-107); Glucose 103 mg/dl (70-99); Potassium 3.7 mmol/L (3.5-5.1); Sodium 138 mmol/L (135-145); Total Protein 6.5 g/dl (6.3-8.2); eGFR > 60.00
== END ==
LOC: HWLAB 11:46
PROVIDERS: ATTENDING PHYSICIAN Internal Medicine Hematology & Oncology; FAMILY PHYSICIAN Internal Medicine Geriatric Medicine
DX: C90.00 Multiple myeloma not having achieved remission (principal); R22.43 Localized swelling, mass and lump, lower limb, bilateral
CPT/HCPCS: 36415; 80053; 82784; 83521; 84155; 84165; 85025; 86334

== ENCOUNTER → 2025-08-01 10:41 | Outpatient (REF) | payer OTHER, SELFPAY ==
[2025-08-01 12:51] LABS: Hematocrit 39.1 % (37.0-47.0); Hemoglobin 11.8 g/dL (12.0-16.0); Mean Corp Hgb Conc. 30.2 g/dL (33.0-37.0); Mean Corpuscular Volume 91.1 fL (81.0-99.0); Nucleated Red Blood Cells % 0 %; Platelet Count 215 10^3/uL (130-400); Red Cell Dist. Width 15.9 % (11.5-14.5)
[2025-08-01 13:19] LABS: ALT (SGPT) 16 U/L (0-35); AST (SGOT) 20 U/L (14-36); Albumin 4.1 g/dl (3.5-5.0); Alkaline Phosphatase 70 U/L (38-126); Blood Urea Nitrogen 17 mg/dl (7-17); Calcium 9.2 mg/dl (8.4-10.2); Carbon Dioxide 25 mmol/L (22-30); Chloride 107 mmol/L (98-107); Glucose 83 mg/dl (70-99); Potassium 4.3 mmol/L (3.5-5.1); Sodium 138 mmol/L (135-145); Total Protein 6.4 g/dl (6.3-8.2); eGFR > 60.00
== END ==
LOC: HWLAB 10:41
PROVIDERS: ATTENDING PHYSICIAN Internal Medicine Hematology & Oncology; FAMILY PHYSICIAN Internal Medicine Geriatric Medicine
DX: C90.00 Multiple myeloma not having achieved remission (principal); R22.43 Localized swelling, mass and lump, lower limb, bilateral
CPT/HCPCS: 36415; 80053; 85025

== ENCOUNTER → 2025-08-15 12:44 | Outpatient (REF) | payer OTHER, SELFPAY ==
[2025-08-15 13:19] LABS: Hematocrit 40.0 % (37.0-47.0); Hemoglobin 12.1 g/dL (12.0-16.0); Mean Corp Hgb Conc. 30.3 g/dL (33.0-37.0); Mean Corpuscular Volume 90.3 fL (81.0-99.0); Nucleated Red Blood Cells % 0 %; Platelet Count 205 10^3/uL (130-400); Red Cell Dist. Width 15.7 % (11.5-14.5)
[2025-08-15 13:55] LABS: ALT (SGPT) 19 U/L (0-35); AST (SGOT) 19 U/L (14-36); Albumin 4.0 g/dl (3.5-5.0); Alkaline Phosphatase 74 U/L (38-126); Blood Urea Nitrogen 17 mg/dl (7-17); Calcium 8.7 mg/dl (8.4-10.2); Carbon Dioxide 29 mmol/L (22-30); Chloride 106 mmol/L (98-107); Glucose 94 mg/dl (70-99); Potassium 3.8 mmol/L (3.5-5.1); Sodium 138 mmol/L (135-145); Total Protein 6.4 g/dl (6.3-8.2); eGFR 55.21
== END ==
LOC: REG 12:44
PROVIDERS: ATTENDING PHYSICIAN Internal Medicine Hematology & Oncology; FAMILY PHYSICIAN Internal Medicine Geriatric Medicine
DX: C90.00 Multiple myeloma not having achieved remission (principal); R22.43 Localized swelling, mass and lump, lower limb, bilateral
CPT/HCPCS: 36415; 80053; 85025

== ENCOUNTER → 2025-08-22 11:16 | Outpatient (REF) | payer OTHER, SELFPAY ==
[2025-08-22 12:22] LABS: Hematocrit 38.6 % (37.0-47.0); Hemoglobin 11.9 g/dL (12.0-16.0); Mean Corp Hgb Conc. 30.8 g/dL (33.0-37.0); Mean Corpuscular Volume 91.0 fL (81.0-99.0); Nucleated Red Blood Cells % 0 %; Platelet Count 212 10^3/uL (130-400); Red Cell Dist. Width 15.7 % (11.5-14.5)
[2025-08-22 12:51] LABS: ALT (SGPT) 17 U/L (0-35); AST (SGOT) 19 U/L (14-36); Albumin 3.9 g/dl (3.5-5.0); Alkaline Phosphatase 74 U/L (38-126); Blood Urea Nitrogen 17 mg/dl (7-17); Calcium 8.9 mg/dl (8.4-10.2); Carbon Dioxide 28 mmol/L (22-30); Chloride 108 mmol/L (98-107); Glucose 81 mg/dl (70-99); Potassium 4.1 mmol/L (3.5-5.1); Sodium 139 mmol/L (135-145); Total Protein 6.3 g/dl (6.3-8.2); eGFR 55.21
== END ==
LOC: REG 11:16
PROVIDERS: ATTENDING PHYSICIAN Internal Medicine Hematology & Oncology; FAMILY PHYSICIAN Internal Medicine Geriatric Medicine
DX: C90.00 Multiple myeloma not having achieved remission (principal); R22.43 Localized swelling, mass and lump, lower limb, bilateral
CPT/HCPCS: 36415; 80053; 82784; 83521; 84155; 84165; 85025; 86334

== ENCOUNTER → 2025-08-31 10:07 | Outpatient (REF) | payer OTHER, SELFPAY ==
[2025-08-31 11:30] LABS: Hematocrit 38.3 % (37.0-47.0); Hemoglobin 12.3 g/dL (12.0-16.0); Mean Corp Hgb Conc. 32.1 g/dL (33.0-37.0); Mean Corpuscular Volume 88.2 fL (81.0-99.0); Nucleated Red Blood Cells % 0 %; Platelet Count 238 10^3/uL (130-400); Red Cell Dist. Width 15.4 % (11.5-14.5)
[2025-08-31 13:20] LABS: ALT (SGPT) 14 U/L (0-35); AST (SGOT) 17 U/L (14-36); Albumin 4.1 g/dl (3.5-5.0); Alkaline Phosphatase 80 U/L (38-126); Blood Urea Nitrogen 17 mg/dl (7-17); Calcium 8.9 mg/dl (8.4-10.2); Carbon Dioxide 27 mmol/L (22-30); Chloride 106 mmol/L (98-107); Glucose 86 mg/dl (70-99); Potassium 4.0 mmol/L (3.5-5.1); Sodium 138 mmol/L (135-145); Total Protein 6.5 g/dl (6.3-8.2); eGFR > 60.00
== END ==
LOC: REG 10:07
PROVIDERS: ATTENDING PHYSICIAN Internal Medicine Hematology & Oncology; FAMILY PHYSICIAN Internal Medicine Geriatric Medicine
DX: C90.00 Multiple myeloma not having achieved remission (principal); R22.43 Localized swelling, mass and lump, lower limb, bilateral
CPT/HCPCS: 36415; 80053; 85025

== ENCOUNTER → 2025-09-05 11:12 | Outpatient (REF) | payer OTHER, SELFPAY ==
[2025-09-05 13:18] LABS: Hematocrit 35.1 % (37.0-47.0); Hemoglobin 11.2 g/dL (12.0-16.0); Mean Corp Hgb Conc. 31.9 g/dL (33.0-37.0); Mean Corpuscular Volume 86.7 fL (81.0-99.0); Nucleated Red Blood Cells % 0 %; Platelet Count 193 10^3/uL (130-400); Red Cell Dist. Width 15.5 % (11.5-14.5)
[2025-09-05 14:09] LABS: ALT (SGPT) 12 U/L (0-35); AST (SGOT) 15 U/L (14-36); Albumin 3.6 g/dl (3.5-5.0); Alkaline Phosphatase 75 U/L (38-126); Blood Urea Nitrogen 18 mg/dl (7-17); Calcium 8.7 mg/dl (8.4-10.2); Carbon Dioxide 27 mmol/L (22-30); Chloride 106 mmol/L (98-107); Glucose 78 mg/dl (70-99); Potassium 3.5 mmol/L (3.5-5.1); Sodium 137 mmol/L (135-145); Total Protein 6.0 g/dl (6.3-8.2); eGFR > 60.00
== END ==
LOC: REG 11:12
PROVIDERS: ATTENDING PHYSICIAN Internal Medicine Hematology & Oncology; FAMILY PHYSICIAN Internal Medicine Geriatric Medicine
DX: C90.00 Multiple myeloma not having achieved remission (principal); R22.43 Localized swelling, mass and lump, lower limb, bilateral
CPT/HCPCS: 36415; 80053; 85025

== ENCOUNTER → 2025-09-13 10:48 | Outpatient (REF) | payer OTHER, SELFPAY ==
[2025-09-13 16:09] LABS: Hematocrit 34.5 % (37.0-47.0); Hemoglobin 11.0 g/dL (12.0-16.0); Mean Corp Hgb Conc. 31.9 g/dL (33.0-37.0); Mean Corpuscular Volume 85.0 fL (81.0-99.0); Nucleated Red Blood Cells % 0 %; Platelet Count 185 10^3/uL (130-400); Red Cell Dist. Width 15.2 % (11.5-14.5)
[2025-09-13 16:19] LABS: ALT (SGPT) 18 U/L (0-35); AST (SGOT) 21 U/L (14-36); Albumin 3.5 g/dl (3.5-5.0); Alkaline Phosphatase 72 U/L (38-126); Blood Urea Nitrogen 11 mg/dl (7-17); Calcium 8.6 mg/dl (8.4-10.2); Carbon Dioxide 26 mmol/L (22-30); Chloride 108 mmol/L (98-107); Glucose 89 mg/dl (70-99); Potassium 3.6 mmol/L (3.5-5.1); Sodium 137 mmol/L (135-145); Total Protein 5.9 g/dl (6.3-8.2); eGFR > 60.00
== END ==
LOC: HWLAB 10:48
PROVIDERS: ATTENDING PHYSICIAN Internal Medicine Hematology & Oncology; FAMILY PHYSICIAN Internal Medicine Geriatric Medicine
DX: C90.00 Multiple myeloma not having achieved remission (principal); R22.43 Localized swelling, mass and lump, lower limb, bilateral
CPT/HCPCS: 36415; 80053; 85025